=== PATIENT | male | born 1960 | race Caucasian/White ===

== ENCOUNTER 2023-07-18 08:36 | Outpatient (OUT) | payer OTHER, SELFPAY ==
--- NOTE | 2023-07-18 | XR_ITS ---
[address] [address] Patient Name: PAMELA JIN MRN: [id number] date: 1960 Sex: M Assigned Patient Location: LAB Current Patient Location: LAB Accession/Order Number: [id number] Exam Date: 07/18/2023 09:05 Report Date: 07/18/2023 09:32 At the request of: NON-STAFF PHYSICIAN Procedure: XR abdomen 1V Exam: Radiographs: XR abdomen 1V Reason for exam: n20.0, kidney stone Comparison: Plain films dated 06/24/2022 XR/XR abdomen 1V IMPRESSION: No radiographically evident renal, ureteral or bladder calculi. No gas-filled dilated loops of small bowel or colon. No fecal impaction. Remainder unremarkable. Electronically authenticated by: JOSE BUCKLEY Date: 07/18/2023 09:32
[2023-07-18 09:56] LABS: Prostate Specific Antigen Dx 0.54 ng/mL (<=4.00)
== END 2023-07-18 08:37 | disposition home or self-care (01) ==
LOC: LAB 08:41
PROVIDERS: PCP Family Medicine
DX: N13.2 Hydronephrosis with renal and ureteral calculous obstruction (principal); N52.9 Male erectile dysfunction, unspecified; N40.1 Benign prostatic hyperplasia with lower urinary tract symptoms
CPT/HCPCS: 36415; 74018; 84153

== ENCOUNTER 2024-07-24 09:22 | Outpatient (OUT) | payer MEDICARE, OTHER, SELFPAY ==
--- NOTE | 2024-07-24 09:46 | XR_ITS ---
The [address] [address] Patient Name: PAMELA JIN MRN: [id number] date: 1960 Sex: M Assigned Patient Location: LAB Current Patient Location: LAB Accession/Order Number: [id number] Exam Date: 07/24/2024 09:49 Report Date: 07/25/2024 05:47 At the request of: FLY MCGUIRE Procedure: XR abdomen 1V EXAMINATION: XR abdomen 1V HISTORY: Ureteral Stone With Hydronephrosis COMPARISON: XR abdomen 07/18/2023, ultrasound renal bilateral 07/24/2024 FINDINGS: KIDNEY/URETER - RIGHT: No visible renal or ureteral calcifications. KIDNEY/URETER - LEFT: No visible renal or ureteral calcifications. PELVIS: No visible ureteral calcifications. Stable pelvic calcifications favor phleboliths. BOWEL: No abnormal dilation or deviation. BONES: No acute abnormality. OTHER: Negative. No abnormal gaseous collections. XR/XR abdomen 1V IMPRESSION: 1. No urinary tract calculi. Electronically authenticated by: MICHAEL CARMEN Date: 07/25/2024 05:47
--- NOTE | 2024-07-24 09:46 | US_ITS ---
[address] [address] Patient Name: PAMELA JIN MRN: [id number] date: 1960 Sex: M Assigned Patient Location: LAB Current Patient Location: Accession/Order Number: [id number] Exam Date: 07/24/2024 09:50 Report Date: 07/25/2024 05:46 At the request of: FLY MCGUIRE Procedure: US renal BI EXAMINATION: US renal BI HISTORY: Ureteral Stone With Hydronephrosis COMPARISON: CT abdomen pelvis 03/03/2022 TECHNIQUE: Ultrasound examination was performed of the kidneys and urinary bladder. FINDINGS: RIGHT KIDNEY: No evidence of pelvocaliectasis, mass, or calculi. Normal parenchymal echogenicity. Color Doppler demonstrates blood flow within the kidney. Kidney: 11.5 x 5.8 x 5.2 cm LEFT KIDNEY: No evidence of pelvocaliectasis, mass, or calculi. Normal parenchymal echogenicity. Color Doppler demonstrates blood flow within the kidney. Kidney: 12.5 x 5.2 x 6.1 cm BLADDER: No visible wall thickening, mass, or calculi. US/US renal BI IMPRESSION: 1. Normal ultrasound appearance of the kidneys and urinary bladder. Electronically authenticated by: MICHAEL CARMEN Date: 07/25/2024 05:46
[2024-07-24 11:20] LABS: Prostate Specific Antigen Dx 0.71 ng/mL (<=4.00)
== END 2024-07-24 09:23 | disposition home or self-care (01) ==
LOC: LAB 09:29
PROVIDERS: PCP Family Medicine; Visit Provider Physician Assistant
DX: N13.2 Hydronephrosis with renal and ureteral calculous obstruction (principal); N40.1 Benign prostatic hyperplasia with lower urinary tract symptoms
CPT/HCPCS: 36415; 74018; 76775; 84153

== ENCOUNTER 2025-08-22 14:48 | Outpatient (OUT) | payer MEDICARE, OTHER, SELFPAY ==
--- OUTSIDE RECORDS SUMMARY | 2025-08-08 13:30 | XMS_ITS | Encounter Summary ---
Author Organization [facility] Address [address] [place] [address] Care Team Providers Care Qa Test Lead Name Role Phone Alex Lopes MD Primary Care Provider [phone] Alex Lopes MD Unavailable [phone] Jamel Nagy MD Unavailable [phone] Encounter Details DateTypeDepartmentCare Team (Latest Contact Info)Ucdmigwjtlb74/09/2025 1:30 PM EDTAncillary Procedure [facility] [address] [place] [address] Polyarthritis; Elevated erythrocyte sedimentation rate; Simple chronic bronchitis (HCC); Restrictive airway disease Social History Tobacco UseTypesPacks/DayYears UsedDateSmoking Tobacco: Some DaysCigarettes Smokeless Tobacco: NeverAlcohol UseStandard Drinks/WeekCommentsNot Currently0 (1 standard drink = 0.6 oz pure alcohol)B1300 Health LiteracyAnswerDate RecordedHow often do you need to have someone help you when you read instructions, pamphlets, or other written material from your doctor or pharmacy?Never 12/19/2024Humiliation, Afraid, Rape, and Kick questionnaireAnswerDate Recorded Within the last year, have you been afraid of your partner or ex-partner?Patient rdthezsb24/05/2023Within the last year, have you been humiliated or emotionally abused in other ways by your partner or ex-partner?Patient ogriwddb80/05/2023 Within the last year, have you been kicked, hit, slapped, or otherwise physically hurt by your partner or ex-partner?No07/05/2023Within the last year, have you been raped or forced to have any kind of sexual activity by your part ner or ex-partner?No07/05/2023Social Connection and Isolation PanelAnswerDate RecordedIn a typical week, how many times do you talk on the phone with family, friends, or neighbors?More than three times a week12/19/2024How often do you get together with friends or relatives?More than three times a week12/19/2024How often do you attend yazidi or orthodox services?Patient qgzowpjj76/19/2025Do you belong to any clubs or organizations such as yazidi groups, unions, [email or web address] or athletic groups, or school groups?No12/19/2024How often do you attend meetings of the clubs or organizations you belong to?Never12/19/2024re you , , , , never , or living with a partner?Srkygvll23/19/2025UDIT-CAnswerDate RecordedQ1: How often do you have a drink containing alcohol?Monthly or less12/19/2024Q2: How many drinks containing alcohol do you have on a typical day when you are drinking?3 or Q3: How often do you have six or more drinks on one occasion?Never12/19/2024Overall Financial Resource Strain (CARDIA)AnswerDate RecordedHow hard is it for you to pay for the very basics like food, housing, medical care, and heating?Not hard at all12/19/2024PHQ-2AnswerDate RecordedPatient Health Questionnaire-2 Score0 06/20/2025[facility] [place] [facility] Occup[facility] - Occupational Stress QuestionnaireAnswerDate RecordedDo you feel stress - tense, restless, nervous, or anxious, or unable to sleep at night because yourmind is troubled all the time - these days?Not at all12/19/2024Exercise Vital SignAnswerDate RecordedOn average, how many days per week do you engage in moderate to strenuous exercise (like a brisk walk)?0 days12/19/2024On average, how many minutes do you engage in exercise at this level?20 min12/19/2024Hunger Vital SignAnswerDate Recorded Within the past 12 months, you worried that your food would run out before you got the money to buymore.Never true12/19/2024Within the past 12 months, the food you bought just didn't last and you didn't have money to get more.Sometimes true 12/19/2024PRAPARE - TransportationAnswerDate RecordedIn the past 12 months, has lack of transportation kept you from medical appointments or from getting medications?No12/19/2024In the past 12 months, has lack of transportation kept you from meetings, work, or from getting things needed for daily living?No 12/19/2024Housing Stability Vital SignAnswerDate RecordedIn the last 12 months, was there a time when you were not able to pay the mortgage or rent on time?No 07/05/2023In the last 12 months, how many places have you lived?In the last 12 months, was there a time when you did not have a steady place to sleep or slept in [facility] (including now)?No07/05/2023Housing Stability Vital SignAnswerDate RecordedIn the last 12 months, was there a time when you were not able to pay the mortgage or rent on time?No12/19/2024Number of Times Moved in the Last YearNot on file12/19/2024t any time in the past 12 months, were you homeless or living in a senior care (including now)?No12/19/2024EducationAnswerDate RecordedWhat is the highest level of school you have completed or the highest degree you have received?Some college, no yxlqhv7107/05/2023Sex and Gender InformationValueDate RecordedSex Assigned at BirthNot on fileLegal SexMale 01/12/2023 7:23 PM EDTGender IdentityNot on fileSexual OrientationNot on file OccupationIndustryJob Start DateJob End DateWork full timeNot on fileNot on file Not on filedocumented as of this encounter Plan of Treatment DateTypeDepartmentCare Team (Latest Contact Info)Yobnjmqxreq62/20/2025 9:00 AM ESTOffice Visit [facility] [address] [address] Alex Lopes MD [address] [address] documented as of this encounter Procedures Procedure NamePriorityDate/TimeAssociated DiagnosisCommentsXR CHEST 2 VIEWS Fbcoemd2708/08/2025 2:37 PM EDT Polyarthritis Elevated erythrocyte sedimentation rate Simple chronic bronchitis (HCC) Restrictive airway disease documented in this encounter Results * XR chest 2 views (08/08/2025 2:37 PM EDT)Anatomical RegionLateralityModality ChestRadiographic ImagingSpecimen (Source)Anatomical Location / Laterality Collection Method / VolumeCollection TimeReceived Time08/08/2025 4:54 PM EDT Impressions 08/08/2025 4:54 PM EDT No acute cardiopulmonary disease. ELECTRONICALLY SIGNED BY: Cornelius Dill MD Narrative 08/08/2025 4:54 PM EDT Chest 2 views. HISTORY: Arthralgia. Elevated ESR. Chronic cough. FINDINGS: Osseous structures intact. Cardiopericardial silhouette normal. Pulmonary vasculature normal. Lungsclear. Procedure Note Cornelius Dill MD - 08/08/2025 Chest 2 views. HISTORY: Arthralgia. Elevated ESR. Chronic cough. FINDINGS: Osseous structures intact. Cardiopericardial silhouette normal. Pulmonary vasculature normal. Lungs clear. IMPRESSION: No acute cardiopulmonary disease. ELECTRONICALLY SIGNED BY: Cornelius Dill MD Authorizing ProviderResult TypeResult StatusEdahsan Lopes MDIMG XR PROCEDURES Final Result documented in this encounter Visit Diagnoses Diagnosis Polyarthritis Unspecified polyarthropathy or polyarthritis, site unspecified Elevated erythrocyte sedimentation rate Elevated sedimentation rate Simple chronic bronchitis (HCC) Simple chronic bronchitis Restrictive airway disease documented in this encounter Additional Health Concerns AssessmentNoted TimePHQ-9 Depression Total Score: 7001/21/2025 9:00 AM EDT documented as of this encounter Care Teams Team MemberRelationshipSpecialtyStart DateEnd Date Alex Lopes MD [address] [place] [address] [place] [address] PCP - GeneralFamily Medicine03/08/23 Alex Lopes MD [address] [address] PCP - [place]10/31/24 Jamel Nagy MD [address] [place], [place] [id number] Referring PhysicianUrology01/21/25documented as of this encounter
--- OUTSIDE RECORDS SUMMARY | 2025-08-21 12:00 | XMS_ITS | Encounter Summary ---
Author Organization [facility] [employer] [facility] tem Address [id number] [address] [place] [address] Care Team Providers Care Labor Trainer Name Role Phone Unavailable Primary Care Provider Unavailabl e Encounter Details DateTypeDepartmentCare Team (Latest Contact Info)Qpyzanhfugk68/22/2025 12:00 PM EDTOffice Visit [facility], [facility] Department of [facility] [address] [phone] Layo Day MD [address] [address] Inflammatory polyarthritis ([facility]) (Primary Dx) Social History Tobacco UseTypesPacks/DayYears UsedDateSmoking Tobacco: Never AssessedChildcare AnswerDate UlqqrrqxKarewsayqUgnsbru67/12/2019EmploymentAnswerDate Recorded QoidekdxmoYsqvjxu32/12/2019Sex and Gender InformationValueDate RecordedSex Assigned at BirthNot on fileLegal JtuLkis2806/05/2015 11:30 AM EDTGender Identity Not on fileSexual OrientationNot on filedocumented as of this encounter Last Filed Vital Signs Vital SignReadingTime TakenCommentsBlood Bkounbch056/8410 11:29 AM EDT Pulse--Temperature--Respiratory Xjre7949 11:29 AM EDTOxygen Saturation-- Inhaled Oxygen Concentration--Ipxqbk60 kg (194 lb)08/21/2025 11:29 AM EDTHeight- -Body Mass Index--documented in this encounter Progress Notes * Layo Day MD - 08/21/2025 12:00 PM EDT Images from the original note were not included. [address] [facility] [id number] Date of Service: 08/21/2025 Subjective: Ant Neal III is a 65 y.o. male who presents today for evaluation joints pain. Patient is seen at the request of No primary care provider on file.. This is the 1st clinic visit for this 65-year-old male patient who has been referred to us with joints pain Patient symptoms started in September 2024 ,neck,shoulders,,arms,hips,knees,,stiffness in the morning ,was given Prednisone early August 04 tab with trapper , he feels felt much better when he was on h igh-dose however pain came back after stopping the steroid. No headaches,jaw pain,or visual loss,fever Lab tests done May 2025 ESR 82, uric acid normal, rheumatoid factor 11. Patient has been given the following medications including, Past surgical hernia operations Past medical HTN ,DM,high lipids was on Salatin caused muscle pain now not taking them for the past3 weeks Smoking history 21 years 1/2 pack daily The following portions of the patient's history were reviewed and updated as appropriate: allergies, current medications, past family history, past medical history, past social history, past surgicalhistory and problem list. Review of Systems: Review of Systems Constitutional: Negative for fatigue, fever and unexpected weight change. HENT: Negative. Eyes: Negative. Respiratory: Negative. Cardiovascular: Negative. Gastrointestinal: Negative. Genitourinary: Negative. Musculoskeletal: Positive for arthralgias and neck pain. Skin: Negative for rash. Allergic/Immunologic: Negative. Neurological: Negative for seizures, syncope, weakness and headaches. Hematological: Does not bruise/bleed easily. Psychiatric/Behavioral: Negative. Negative for dysphoric mood. Current Outpatient Medications Medication Sig Dispense Refill fenofibrate (TRICOR) 145 mg tablet Take 1 tablet (145 mg total) by mouth in the morning. JARDIANCE 25 mg tablet tablet Take 1 tablet (25 mg total) by mouth in the morning. losartan (COZAAR) 100 mg tablet Take 1 tablet (100 mg total) by mouth in the morning. magnesium oxide (MAGOX) 400 mg tablet Take 250 mg by mouth in the morning. metFORMIN (GLUCOPHAGE) 1000 mg tablet Take 1 tablet (1,000 mg total) by mouth daily with breakfast. metoprolol tartrate (LOPRESSOR) 100 mg tablet Take 25 mg by mouth in the morning and 25 mg before bedtime. predniSONE (DELTASONE) 10 mg tablet Take 1 tablet (10 mg total) by mouth in the morning. 4 tab daily 1 week,then 3 tab daily 1 week,then 2 tab daily 1 week,then 1.5 tab daily. 70 tablet 1 No current facility-administered medications for this visit. Physical Exam: Physical Exam Vitals and nursing note reviewed. Constitutional: General: He is not in acute distress. Appearance: He is well-developed. He is not diaphoretic. HENT: Head: Normocephalic and atraumatic. Right Ear: External ear normal. Left Ear: External ear normal. Nose: Nose normal. Eyes: Conjunctiva/sclera: Conjunctivae normal. Pupils: Pupils are equal, round, and reactive to light. Neck: Thyroid: No thyromegaly. Cardiovascular: Rate and Rhythm: Normal rate and regular rhythm. Heart sounds: Normal heart sounds. No murmur heard. No friction rub. Pulmonary: Effort: Pulmonary effort is normal. No respiratory distress. Breath sounds: No stridor. No wheezing or rales. Abdominal: General: There is no distension. Palpations: Abdomen is soft. There is no mass. Tenderness: There is no guarding. Musculoskeletal: General: No tenderness or deformity. Normal range of motion. Cervical back: Normal range of motion and neck supple. Comments: Puffiness with edema both hands puffy MCPs. Tender wrists. Shoulders painful range motion. Knees crepitus both sides Skin: General: Skin is warm and dry. Findings: No erythema or rash. Neurological: Mental Status: He is alert and oriented to person, place, and time. Cranial Nerves: No cranial nerve deficit. Coordination: Coordination normal. Psychiatric: Behavior: Behavior normal. GRECO-28 (If Applicable) There is currently no information documented on the homunculus. Go to the Rheumatology activity andcomplete the homunculus joint exam. GRECO-28 (CRP): -- GRECO-28 (ESR): -- Tender (GRECO-28): -- Swollen (GRECO-28): -- BP 132/84 Resp 18 Wt 88 kg (194 lb) : reviewed Labs and Imaging: reviewed and discussed with the patient during the visit.I No results found for: WBC , RBC , HGB , HCT , MCV , ESR , CRP , RF , C3 , C4 , GFR , CA , AST , PROT Imaging: Assessment and Plan: Ant Neal III is a 65 y.o. male patient with: 1. Inflammatory polyarthritis ([facility]) - Erythrocyte Sedimentation Rate (ESR); Future - C-reactive protein; Future - Comprehensive metabolic panel; Future - CBC auto differential; Future - CCP Ab; Future - X-ray osseous survey limited; Future - X-ray knees bilateral standing ap; Future - X-ray chest 2 views; Future - predniSONE (DELTASONE) 10 mg tablet; Take 1 tablet (10 mg total) by mouth in the morning. 4 tab daily 1 week,then 3 tab daily 1 week,then 2 tab daily 1 week,then 1.5 tab daily. Dispense: 70 tablet;Refill: 1 At this point I am seeing this patient with inflammatory polyarthritis probably seronegative rheumatoid versus polymyalgia rheumatica. X-rays. ESR CRP, CCP Will put patient back on 40 mg prednisone and taper slowly over 1 month RTC 1 month Total ovwm-yk-clqg time was 35 minutes with more than 50% of the visit spent counseling and discussing diagnostic or treatment recommendations, prognosis, risks and benefits of management options, instructions, compliance or risk- factor reduction. This note was created with the assistance of a speech recognition program. While intending to generate a timely document that accurately reflects the content of the visit, no guarantee can be provided that every grammatical or spelling mistake has been or will be identified or corrected. Thank you for your understanding. [facility] Dr. Layo Day MD [address] [facility], [address] [place] [address] Office: [phone] documented in this encounter Miscellaneous Notes * Addendum Note - Layo Day MD - 08/21/2025 12:00 PM EDTAddended by: LAYO DAY on: 08/21/2025 12:38 PM Modules accepted: Orders documented in this encounter Plan of Treatment DateTypeDepartmentCare Team (Latest Contact Info)Sikdifvxhjm89/24/2025 9:45 AM ESTOffice Visit [facility], [facility] Department of [facility] [address] [phone] Layo Day MD [address] [address] NameTypePriorityAssociated DiagnosesOrder ScheduleErythrocyte Sedimentation Rate (ESR)LabRoutine Inflammatory polyarthritis (CMS-HCC) Expected: 08/21/2025 (Approximate), Expires: 08/21/2026-reactive proteinLab Routine Inflammatory polyarthritis (CMS-HCC) Expected: 08/21/2025 (Approximate), Expires: 08/21/2026omprehensive metabolic panelLabRoutine Inflammatory polyarthritis (CMS-HCC) Expected: 08/21/2025 (Approximate), Expires: 08/21/2026BC auto differentialLab Routine Inflammatory polyarthritis (CMS-HCC) Expected: 08/21/2025 (Approximate), Expires: 08/21/2026CP AbLabRoutine Inflammatory polyarthritis (CMS-HCC) 1 Occurrences starting 08/21/2025 until 08/21/2026documented as of this encounter Results * X-ray chest 2 views (08/21/2025 12:37 PM EDT)Anatomical RegionLaterality ModalityBody, ChestN/AComputed RadiographySpecimen (Source)Anatomical Location / LateralityCollection Method / VolumeCollection TimeReceived Time08/21/2025 4:21 PM EDT Narrative 08/21/2025 4:22 PM EDT XR CHEST 2 VWS INDICATION: Inflammatory polyarthritis (CMS-HCC). Interstitial lung disease. FINDINGS: The cardiac silhouette is normal in size. ??The trachea is midline. No focal pulmonary consolidation. ??No pleural effusion. ??No pneumothorax. IMPRESSION: No acute cardiopulmonary abnormality. Finalized by Santi Love MD on 08/21/2025 4:22 PM Procedure Note Santi Love MD - 08/21/2025 XR CHEST 2 VWS INDICATION: Inflammatory polyarthritis (CMS-HCC). Interstitial lungdisease. FINDINGS: The cardiac silhouette is normal in size. The trachea is midline. No focal pulmonary consolidation. No pleural effusion. Nopneumothorax. IMPRESSION: No acute cardiopulmonary abnormality. Finalized by Santi Love MD on 08/21/2025 4:22 PM Authorizing ProviderResult TypeResult Brianna JOHNSON DIAGNOSTIC IMAGING ORDERABLESFinal Result * X-ray knees bilateral standing ap (08/21/2025 12:37 PM EDT)Anatomical Region LateralityModalityLower Extremities, MSK, KneeBilateralComputed Radiography Specimen (Source)Anatomical Location / LateralityCollection Method / Volume Collection TimeReceived Time08/22/2025 4:02 AM EDT Narrative 08/22/2025 4:03 AM EDT STANDING AP VIEW OF THE KNEES COMPARISON: ??None. HISTORY: Inflammatory polyarthritis (CMS-HCC). IMPRESSION: * ??Severe medial compartment joint space narrowing of the left knee with osteophytes. Overlying foci of ossification medially are most likely loose bodies. * ??Mild right medial compartment joint space narrowing. * ??Spurring of the bilateral medial and lateral compartments. Finalized by Naeem Nguyen MD on 08/22/2025 4:03 AM Procedure Note Naeem Nguyen MD - 08/22/2025 STANDING AP VIEW OF THE KNEES COMPARISON: None. HISTORY: Inflammatory polyarthritis (CMS-HCC). IMPRESSION: * Severe medial compartment joint space narrowing of the left knee with osteophytes. Overlying foci of ossification medially are most likely loose bodies. * Mild right medial compartment joint space narrowing. * Spurring of the bilateral medial and lateral compartments. Finalized by Naeem Nguyen MD on 08/22/2025 4:03 AM Authorizing ProviderResult TypeResult Brianna Rahmana MDIMG DIAGNOSTIC IMAGING ORDERABLESFinal Result * X-ray osseous survey limited (08/21/2025 12:36 PM EDT)Anatomical Region LateralityModalityMSKN/AComputed RadiographySpecimen (Source)Anatomical Location / LateralityCollection Method / VolumeCollection TimeReceived Time 08/22/2025 3:59 AM EDT Narrative 08/22/2025 4:02 AM EDT OSSEOUS SURVEY LIMITED HISTORY: Inflammatory polyarthritis (CMS-HCC). PA and oblique views of the bilateral hands and wrists obtained. FINDINGS: Right: Severe second and third metacarpophalangeal joint space narrowing with volar osteophyte of the metacarpal heads. Mild narrowing of the first metatarsophalangeal joint, and moderate degenerative change of the first carpometacarpal joint. Diffuse degenerative change of the interphalangeal joints. No discrete bone erosion or soft tissue calcification. Remote ulnar styloid fracture without bony union. No fracture. Left: Severe second and third metacarpophalangeal joint space narrowing with volar metacarpal head osteophytes. Severe first carpal metacarpal osteoarthrosis, as well as severe degenerative change at the scaphoid trapezium chest trapezoid joint. Diffuse degenerative change of the interphalangeal joints, and mild first metatarsophalangeal osteoarthrosis. No discrete bone erosion or soft tissue calcification. IMPRESSION: * ??Bilateral severe second metacarpophalangeal joint space narrowing with volar metacarpal head osteophytes. These findings can be seen with no fracture. 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 No discrete bone erosion. * ??Degenerative changes as described. Finalized by Naeem Nguyen MD on 08/22/2025 4:02 AM Procedure Note Naeem Nguyen MD - 08/22/2025 OSSEOUS SURVEY LIMITED HISTORY: Inflammatory polyarthritis (CMS-HCC). PA and oblique views of the bilateral hands and wrists obtained. FINDINGS: Right: Severe second and third metacarpophalangeal joint space narrowing withvolar osteophyte of the metacarpal heads. Mild narrowing of the first metatarsophalangeal joint, and moderate degenerative change of the first carpometacarpal joint. Diffuse degenerative change of the interphalangealjoints. No discrete bone erosion or soft tissue calcification. Remote ulnar styloidfracture without bony union. No fracture. Left: Severe second and third metacarpophalangeal joint space narrowing withvolar metacarpal head osteophytes. Severe first carpal metacarpalosteoarthrosis, as well as severe degenerative change at the scaphoidtrapezium chest trapezoid joint. Diffuse degenerative change of theinterphalangeal joints, and mild first metatarsophalangeal osteoarthrosis. No discrete boneerosion or soft tissue calcification. IMPRESSION: * Bilateral severe second metacarpophalangeal joint space narrowing withvolar metacarpal head osteophytes. These findings can be seen with nofracture. CPPD arthropathy, although there is no evidence forchondrocalcinosis. No discrete bone erosion. * Degenerative changes as described. Finalized by Naeem Nguyen MD on 08/22/2025 4:02 AM Authorizing ProviderResult TypeResult StatusKhmadhavi JOHNSON DIAGNOSTIC IMAGING ORDERABLESFinal Result documented in this encounter Visit Diagnoses Diagnosis Inflammatory polyarthritis (CMS-HCC)- Primary Unspecified inflammatory polyarthropathy Inflammatory polyarthritis (CMS-HCC) Unspecified inflammatory polyarthropathy Inflammatory polyarthritis (CMS-HCC) Unspecified inflammatory polyarthropathy Inflammatory polyarthritis (CMS-HCC) Unspecified inflammatory polyarthropathy documented in this encounter
--- OUTSIDE RECORDS SUMMARY | 2025-08-21 12:23 | XMS_ITS | Encounter Summary ---
Author Organization [facility] tem Address [id number] [address] [place] [address] Care Team Providers Care Bike Assembler Name Role Phone Unavailable Primary Care Provider Unavailabl e Encounter Details DateTypeDepartmentCare Team (Latest Contact Info)Ampwdlpzyhm23/22/2025 12:23 PM EDT - 08/21/2025 11:59 PM EDTHospital Encounter [facility] [address] [facility] [address] [place] [phone] Inflammatory polyarthritis ([facility]-H[facility]) Discharge Disposition: Home Social History Tobacco UseTypesPacks/DayYears UsedDateSmoking Tobacco: Never AssessedChildcare AnswerDate VwxfbsfjSpusjdohfFhacbqd98/12/2019EmploymentAnswerDate Recorded GaiultmmbxYedhfdg32/12/2019Sex and Gender InformationValueDate RecordedSex Assigned at BirthNot on fileLegal DkbCjxr9206/05/2015 11:30 AM EDTGender Identity Not on fileSexual OrientationNot on filedocumented as of this encounter Medications at Time of Discharge MedicationSigDispense QuantityRefillsLast FilledStart DateEnd Date fenofibrate (TRICOR) 145 mg tablet Take 1 tablet (145 mg total) by mouth in the morning.06/20/2025 JARDIANCE 25 mg tablet tablet Take 1 tablet (25 mg total) by mouth in the morning.06/20/2025 losartan (COZAAR) 100 mg tablet Take 1 tablet (100 mg total) by mouth in the morning.06/20/2025 magnesium oxide (MAGOX) 400 mg tablet Take 250 mg by mouth in the morning. metFORMIN (GLUCOPHAGE) 1000 mg tablet Take 1 tablet (1,000 mg total) by mouth daily with breakfast.06/20/2025 metoprolol tartrate (LOPRESSOR) 100 mg tablet Take 25 mg by mouth in the morning and 25 mg before bedtime.06/04/2025 predniSONE (DELTASONE) 10 mg tablet Indications:Inflammatory polyarthritis (CMS-HCC)4 tab daily 1 week,then 3 tab daily 1 week,then 2 tab daily 1 week,then 1.5 tab daily 70 tablet documented as of this encounter Plan of Treatment DateTypeDepartmentCare Team (Latest Contact Info)Nnfqubvcgbg23/24/2025 9:45 AM ESTOffice Visit [facility], [facility] Department of [facility] [address] [phone] Fela Camejo MD [address] [address] documented as of this encounter Procedures Procedure NamePriorityDate/TimeAssociated DiagnosisCommentsXR KNEES BILAT STANDING VENrcmhtj05/22/2025 12:37 PM EDT Inflammatory polyarthritis (CMS-HCC) documented in this encounter Results * X-ray knees bilateral standing ap (08/21/2025 [...] on 08/22/2025 4:03 AM Authorizing ProviderResult TypeResult StatusKhadeargentina JOHNSON DIAGNOSTIC IMAGING ORDERABLESFinal Result documented in this encounter Visit Diagnoses Diagnosis Inflammatory polyarthritis (CMS-HCC) Unspecified inflammatory polyarthropathy documented in this encounter
--- OUTSIDE RECORDS SUMMARY | 2025-08-21 12:23 | XMS_ITS | Encounter Summary ---
Author Organization [facility] tem Address [facility] [id number] [address] [place] [address] Care Team Providers Care Youth Care Professional Name Role Phone Unavailable Primary Care Provider Unavailabl e Encounter Details DateTypeDepartmentCare Team (Latest Contact Info)Vofrrogkjqy75/22/2025 12:23 PM EDT - 08/21/2025 11:59 PM EDTHospital Encounter [facility] - Radiology Imaging [address] [facility] [address] [place] [phone] Inflammatory polyarthritis ([facility]-H[facility]) Discharge Disposition: Home Social History Tobacco UseTypesPacks/DayYears UsedDateSmoking Tobacco: Never AssessedChildcare AnswerDate JfwuhdddFtgsctjvkVutnvyc15/12/2019EmploymentAnswerDate Recorded CvkquisqlbRdkkjec07/12/2019Sex and Gender InformationValueDate RecordedSex Assigned at BirthNot on fileLegal UusXnet3206/05/2015 11:30 AM EDTGender Identity Not on fileSexual [...] Plan of Treatment DateTypeDepartmentCare Team (Latest Contact Info)Dfztmcgwekn79/24/2025 9:45 AM ESTOffice Visit [facility], [facility] Department of [facility] [address] [phone] Fela Camejo MD [address] [address] documented as of this encounter Procedures Procedure NamePriorityDate/TimeAssociated DiagnosisCommentsXR OSSEOUS SURVEY UZMZZFVNxdxpoi52/22/2025 12:36 PM EDT Inflammatory polyarthritis (CMS-HCC) documented in this encounter Results * X-ray osseous survey limited (08/21/2025 12:36 [...] Degenerative changes as described. Finalized by Naeem Nugyen MD on 08/22/2025 4:02 AM Authorizing ProviderResult TypeResult StatusKhader Camejo MDIMJonatan DIAGNOSTIC IMAGING ORDERABLESFinal Result documented in this encounter Visit Diagnoses Diagnosis Inflammatory polyarthritis ([facility]-H[facility]) Unspecified inflammatory polyarthropathy documented in this encounter
--- OUTSIDE RECORDS SUMMARY | 2025-08-21 12:23 | XMS_ITS | Encounter Summary ---
Author Organization [facility] tem Address [facility] [id number] [address] [place] [address] Care Team Providers Care Inspector Optical Instrument Name Role Phone Unavailable Primary Care Provider Unavailabl e Encounter Details DateTypeDepartmentCare Team (Latest Contact Info)Duyfrchxemx34/22/2025 12:23 PM EDT - 08/21/2025 11:59 PM EDTHospital Encounter [facility] - Radiology Imaging [address] [facility] [address] [place] [phone] Inflammatory polyarthritis ([facility]-H[facility]) Discharge Disposition: Home Social History Tobacco UseTypesPacks/DayYears UsedDateSmoking Tobacco: Never AssessedChildcare AnswerDate QhiutbqqRetrygabuFbvlucf82/12/2019EmploymentAnswerDate Recorded YzdvqkwvosZxvzwnd02/12/2019Sex and Gender InformationValueDate RecordedSex Assigned at BirthNot on fileLegal CymVrlh1606/05/2015 11:30 AM EDTGender Identity Not on fileSexual [...] Plan of Treatment DateTypeDepartmentCare Team (Latest Contact Info)Yxmhxvcrldp14/24/2025 9:45 AM ESTOffice Visit [facility], [facility] Department of [facility] [address] [phone] Fela Camejo MD [address] [address] documented as of this encounter Procedures Procedure NamePriorityDate/TimeAssociated DiagnosisCommentsXR CHEST 2 VWSRoutine 08/21/2025 12:37 PM EDT Inflammatory polyarthritis (CMS-HCC) documented in this encounter Results * X-ray chest 2 [...] on 08/21/2025 4:22 PM Authorizing ProviderResult TypeResult StatusKhader Bashir JOHNSON DIAGNOSTIC IMAGING ORDERABLESFinal Result documented in this encounter Visit Diagnoses Diagnosis Inflammatory polyarthritis ([facility]-HCC) Unspecified inflammatory polyarthropathy documented in this encounter
--- OUTSIDE RECORDS SUMMARY | 2025-08-22 14:58 | XMS_ITS | Encounter Summary ---
Author Organization [facility] Address [address] [place] [address] Care Team Providers Care Foot Gatherer Name Role Phone Alex Lopes MD Primary Care Provider [phone] Alex Lopes MD Unavailable [phone] Jamel Nagy MD Unavailable [phone] Reason for Visit * ReasonOnset EqugYbdovobcEekehit30/13/2025 Encounter Details DateTypeDepartmentCare Team (Latest Contact Info)Dhreovskppv68/13/2025Results Follow-Up [facility] [place] [address] Family Medicine [address] [facility] [address] [place] [id number] Alex Lopes MD 112 [facility] [address] [place] [address] CBC and differential, Comprehensive metabolic panel, B-type natriuretic peptide, Additional followed-up results: 9 Social History Tobacco UseTypesPacks/DayYears UsedDateSmoking Tobacco: Some [...] been afraid of your partner or ex-partner?Patient douwtnvb29/05/2023Within the last year, have you been humiliated or emotionally abused in other ways by your partner or ex-partner?Patient aigkbxev02/05/2023 Within the last year, have you been [...] times a week12/19/2024How often do you attend christian or orthodox services?Patient /19/2025Do you belong to any clubs or organizations such as christian groups, unions, fraternal or athletic groups, or school groups?No12/19/2024How often do you attend meetings of the clubs or organizations you belong to?Never12/19/2024re you , , , , never , or living with a partner?Rrujgzrq36/19/2025UDIT-CAnswerDate RecordedQ1: How often do you have a [...] hard at all12/19/2024PHQ-2AnswerDate RecordedPatient Health Questionnaire-2 Score0 06/20/2025[facility] - Occupational Stress QuestionnaireAnswerDate [...] steady place to sleep or slept in [place] (including now)?No07/05/2023Housing Stability Vital SignAnswerDate RecordedIn the last 12 months, was there a time when you were not able to pay the mortgage or rent on time?No12/19/2024Number of Times Moved in the Last YearNot on file12/19/2024t any time in the past 12 months, were you homeless or living in a care home (including now)?No12/19/2024EducationAnswerDate RecordedWhat is the highest level of school you have completed or the highest degree you have received?Some college, no afojqa8407/05/2023Sex and Gender InformationValueDate RecordedSex Assigned at BirthNot on fileLegal SexMale 01/12/2023 7:23 PM EDTGender IdentityNot on fileSexual OrientationNot on file OccupationIndustryJob Start DateJob End DateWork full timeNot on fileNot on file Not on filedocumented as of this encounter Miscellaneous Notes * Telephone Encounter - Alex Lopes MD - 08/15/2025 10:46 AM EDT I reviewed with my medical pathologist who spoke with Ant. We were able to accelerate his visit withRheumatology to next . She noted that will Ant is a stoic individual he was in tears on the phone over the pain. At this point we really need to help him with his pain and his PDMP is as expected. We will go ahead and give him some tramadol to get him through to rheumatology. [facility] is requiring prior authorization which was started. * Telephone Encounter - Shelia Claros MA - 08/15/2025 10:39 AM EDT EH he got back with me today that they are going to see him next . Can you get him pain management meds to get him thru that? * Telephone Encounter - Shelia Claros MA - 08/13/2025 3:17 PM EDT left for pt that I refaxed that referral and to call nad let me know date so [facility] can help him accordingly * Telephone Encounter - Shelia Claros MA - 08/13/2025 2:44 PM EDT Copied from : Scott, January, this is Ant Neal. I did over there and they told me that they would call me back when they got the referral. And they had not got it yet, so I have not heard anything from them so. All right, but. refaxed * Telephone Encounter - Shelia Claros MA - 08/13/2025 2:26 PM EDT Attempted to call pt to see if he got something sooner with Dr Florian. No answer, VM left * Telephone Encounter - Alex Lopes MD - 08/12/2025 11:36 AM EDT January, Let us try and get his rheumatology referral set up. If it is short term over a couple of weeks we can give him some tramadol. Otherwise the only thing left that I know how to do for him would be to suppress the inflammation with long-term prednisone which is not without risks. I would prefer not to do that if we can avoid it. * Telephone Encounter - Shelia Claros MA - 08/12/2025 10:42 AM EDT Copied from : Scott. They said room at B, though, this is Ant Neal. If rheumatology said that the appointment would still be january 01 at 830 in the morning. So it is 6 months away. I got to do something else other than that, I mean. I think we are I guess if we can set up and send or in [place], we will have to try that. So, all right, thank you. Bye. I faxed the referral to [facility] office and gave him the number to call later. Can you look at the note about if you would be able to do something in the meantime. * Telephone Encounter - Shelia Claros MA - 08/12/2025 10:05 AM EDT I did talk to Ant. Dr bergman office called him so he is going to call them back and see if they can get him in any sooner because his hands keeping getting worse. He soul hardly even dress himself over the weekend. If he cannot he is going to try and call Florian office. He is asking if there is anything [facility] can due in the mean time to help with the inflammation and pain because nabeumtome is nothelping. * Telephone Encounter - Shelia Claros MA - 08/12/2025 10:05 AM EDT ----- Message from Alex Lopes MD sent at 08/12/2025 9:20 AM EDT ----- ----- Message ----- From: [facility] Results In Sent: 08/09/2025 5:13 PM EDT To: Alex Lopes MD * Telephone Encounter - Alex Lopes MD - 08/12/2025 9:16 AM EDT Notify Ant that I did review the chest x-ray and lab results. The chest x-ray is essentially normal there is no evidence of any masses or cancers or acute disease. His laboratories for the elevated ABA test all came back negative for the different rheumatologic diseases. His chemistry profile came back normal. His beta natriuretic peptide test came back negative. His blood count however demonstrates anemia and suspicious for iron deficiency. I reviewed his chart further and he did have a colonoscopy in October of [address] Alvarez. 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 He has a family history of colon cancer. The recommendation was for repeat colonoscopy in 5 years. This October would be the 5 year albin. I would recommend that he start iron bys-glycinate daily with a meal. I would recommend we go ahead and get him referred for colonoscopy and possible EGD. He can either go see the [facility] surgeons or he can stay with [facility] but Dr. Alvarez is no longer there. As I remember we offered him a referral to another draw frame runner, and he declined that because of the distance. documented in this encounter Plan of Treatment DateTypeDepartmentCare Team (Latest Contact Info)Hoqzfspznxm04/20/2025 9:00 AM ESTOffice Visit [facility] Family Medicine [address] [facility] [address] [place] [phone] Alex Lopes MD [address] [facility] [address] [place] [address] documented as of this encounter Visit Diagnoses Diagnosis Generalized arthritis- Primary documented in this encounter Additional Health Concerns AssessmentNoted TimePHQ-9 Depression Total Score: 7001/21/2025 9:00 AM EDT documented as of this encounter Care Teams Team MemberRelationshipSpecialtyStart DateEnd Date Alex Lopes MD [address] [place] [address] PCP - GeneralFamily Medicine03/08/23 Alex Lopes MD [address] [address] (Fax) PCP - Jaclyn PASCAL10/31/24 Jamel Nagy MD [address] [place] [address] Referring PhysicianUrology01/21/25documented as of this encounter
--- OUTSIDE RECORDS SUMMARY | 2025-08-22 14:58 | XMS_ITS | Clinical Summary ---
Author Organization [facility] Address [address] [place] [address] Care Team Providers Care Intelligence Operations Name Role Phone Alex Lopes MD Primary Care Provider [phone] Alex Lopes MD Unavailable [phone] Jamel Nagy MD Unavailable [phone] Allergies Active AllergyReactionsCriticalityNoted NgttZlogmhjfXrwwursxzudd17/30/2023 Other Reaction(s): Unknown GlipizideGI tmyzqfveoak58/27/2024Ketorolac Dakhqknaaqkk69/05/2023 Other Reaction(s): Hives Penicillin G006/29/2023 Other Reaction(s): Hives Qziibcosfzxj72/30/2023 Other Reaction(s): nausea and vomiting Medications MedicationSigDispense QuantityRefillsLast FilledStart DateEnd DateStatus magnesium 250 MG tablet Take 1 tablet by mouth 1 (one) time each day at the same timeActive omega-3 (Fish Oil) 1000 MG capsule Take 1,000 mg by mouth in the morning.Active sildenafil (Viagra) 100 MG tablet Take 100 mg by mouth if needed.07/22/2022ctive Blood Glucose Monitoring Suppl (ONE TOUCH ULTRA 2) w/Device kit Indications:Type 2 diabetes mellitus with other diabetic kidney complication (HCC)fsbs 1 kit ctive Lancets (OneTouch Delica Plus Uaxdax84E) misc Indications:Type 2 diabetes mellitus with other diabetic kidney complication (HCC)Fasting BS daily. May also check a second time daily for symptoms. 200 each ctive albuterol HFA 90 mcg/act inhaler Indications:Simple chronic bronchitis (HCC)Inhale 2 puffs every 4 (four) hours if needed for wheezing or shortness of breath 54 g tive aspirin 81 MG EC tablet Indications:Mixed hyperlipidemiaTake 1 tablet (81 mg) by mouth Daily06/20/2025 Active fenofibrate (Tricor) 145 MG tablet Indications:Mixed hyperlipidemiaTake 1 tablet (145 mg) by mouth Daily 90 tablet 5Active losartan (Cozaar) 100 MG tablet Indications:Essential hypertensionTake 1 tablet (100 mg) by mouth Daily 90 tablet 6Active metFORMIN (Glucophage) 1000 MG tablet Indications:Type 2 diabetes mellitus with other diabetic kidney complication (HCC)Take 1 tablet (1,000 mg) by mouth in the morning and 1 tablet (1,000 mg) in the evening. Take with meals. 180 tablet 6Active empagliflozin (Jardiance) 25 MG Indications:Type 2 diabetes mellitus with other diabetic kidney complication (HCC)Take 1 tablet (25 mg) by mouth Daily 90 tablet 6Active nabumetone (Relafen) 750 MG tablet Indications:Primary osteoarthritis involving multiple jointsTake 1 tablet (750 mg) by mouth in the morning and 1 tablet (750 mg) before bedtime. 180 tablet 5Active glucose blood (OneTouch Ultra) test strip Indications:Type 2 diabetes mellitus with other diabetic kidney complication (HCC)Fasting BS daily. May also check a second time daily for symptoms. Uses Drug Luxtech True Metrix monitor 200 each 5Active metoprolol tartrate (Lopressor) 25 MG tablet Indications:Essential hypertensionTake 0.5 tablets (12.5 mg) by mouth in the morning and 0.5 tablets (12.5 mg) before bedtime.6Active traMADol (Ultram) 50 MG tablet Indications:Generalized arthritisTake 1-2 tablets (50-100 mg) by mouth every 8 (eight) hours if needed for moderate pain for up to 7days 42 tablet /5Active naproxen (Naprosyn) 250 MG tablet Take 250 mg by mouth 2 (two) times a day as needed for mild pain08/08/2025 Discontinued(Med list cleanup) metoprolol tartrate (Lopressor) 25 MG tablet Indications:Essential hypertensionTake 1 tablet (25 mg) by mouth in the morning and 1 tablet (25 mg) before bedtime. 60 tablet 5007/29/2025Discontinued(Reorder) predniSONE (Deltasone) 10 MG tablet Indications:Primary osteoarthritis involving multiple jointsEvery 2 day tapering dose; 5,5,4,4,3,3,2,2,1,1,0.5,0.5 31 tablet Discontinued(Therapy completed) Active Problems ProblemNoted DateDiagnosed DatePrimary osteoarthritis involving multiple joints 07/02/2025hronic pain /21/2025Myalgia due to gpckwu6107/10/2024 Cigarette rrypjd3806/26/2024iabetic peripheral neuropathy associated with type 2 diabetes ejuotwjx24/27/2024iabetic cataract, associated with type 2 diabetes zglnenjy25/27/2024cquired pes planus of left foot06/29/2023dverse reaction to statin izoxuoncys90/30/2023iastolic mmgjrdyxpaf21/30/2023egeneration of intervertebral disc of lumbar region without discogenic back pain or lower extremity pain06/29/2023Equinus contracture of right ankle06/29/2023Erectile djqstqutbnl71/30/2023Essential qrrygvjdnoou70/30/2023Left ventricular iyzbsbkpfof56/30/2023Low testosterone level in male06/29/2023Microalbuminuria 06/29/2023Mixed gwqyqdumvnxfqc98/30/2023Non morbid obesity due to excess /30/1355Klcvhwrbphvdo71/30/2023eripheral venous insufficiency 06/29/2023es tpdeys7806/29/20238019Rasvjnjnpahw55/30/2023Restrictive airway disease 06/29/2023Right ventricular srqolofw89/30/2023Simple chronic bronchitis 06/29/2023Swelling of first metatarsophalangeal (MTP) joint06/29/2023Type 2 diabetes mellitus with other diabetic kidney bthxendnamih69/30/2023 Resolved Problems ProblemNoted DateDiagnosed DateResolved DateCurrent smoker on some days /History of chemical oamdazms62/Low HDL (under 40)/Overweight (BMI 25.0-29.9)/ Encounters DateTypeDepartmentCare VmpaVybnmkdqwom51/16/2025Telephone [facility] 100 [facility] 112 [facility] [address] [place] [address] Hyacinth January, Care Gvgciepnsuws95/13/2025Orders Only [facility] [address] [place] [address] Hyacinth January,08/12/2025[facility] [place] [address] Alex Lopes MD CBC and differential, Comprehensive metabolic panel, B-type natriuretic peptide, Additional followed-up results: 1:30 PM EDTAncillary Procedure [facility] [address] [facility] [address] [place] [id number] Polyarthritis; Elevated erythrocyte sedimentation rate; Simple chronic bronchitis (HCC); Restrictive airway eperdpf6508/08/20259875Vzcivq57/08/2025Telephone [facility] [address] [place] [address] Hyacinth January, Care Ichvhhoqrfgj80/29/2025Orders Only [facility] [address] [place] [address] Alex Lopes MD 07/29/2025[facility] [address] [place] [address] Hyacinth January, Care Qqqrqeoddhwu08/11/2025Telephone [facility] [address] [place] [address] Hyacinth January, Care Vpxbvyjdxkbm94/08/2025Telephone [facility] [address] 112 [facility] [address] [place] [address] Hyacinth January, Care Ewimuwcqxzqu99/29/2025Results Follow-Up [facility] [address] [place] [address] Alex Lopes MD Sedimentation rate, automated, Uric acid, ABA, Rheumatoid groucb1306/27/2025 Telephone [facility] [address] [place] [address] Alex Lopes MD Usfodeu6706/25/2025Telephone [facility] [place] [address] [place] [address] Catie Farmer RN Care Nlirdmfgliaw88/21/2025 9:00 AM EDTOffice Visit [facility] [address] [place] [address] Alex Lopes MD Essential hypertension (Primary Dx); Mixed hyperlipidemia ; Myalgia due to statin; Type 2 diabetes mellitus with hyperglycemia, without long-term current use of insulin (HCC); Type 2 diabetes mellitus with other diabetic kidney complication (HCC); Microalbuminuria; Diabetic cataract, associated with type 2 diabetes mellitus (HCC); Non morbid obesity due to excess calories; Chronic pain syndrome; Arthralgia, unspecified joint06/20/2025amboo flowsheet [facility] [address] 112 [facility] [address] [place] [address] Alex Lopes MD 06/20/20259699Tsqmdf95/14/9913Vfuxhs41/11/2025Telephone [facility] [address] 112 [facility] [address] [place] [address] HyacinthJanuary, Lab Bycugi4106/01/2025Refill [facility] [address] [place] [address] [place] [address] Alex Lopes MD Essential hypertension ; Type 2 diabetes mellitus with other diabetic kidney complication (HCC); Mixed hyperlipidemiafrom Last 3 Months Immunizations ImmunizationAdministration DatesNext DueInfluenza, seasonal, injectable 07/31/2021 Family History Medical HistoryRelationNameCommentsDiabetesBrotherDiabetesFatherHeart disease FatherDiabetesMotherHeart diseaseMotherLeukemiaSister1 sisterRelationNameStatus CommentsBrother1 brotherDaughterAlive3 daughtersFatherDeceasedMotherDeceased Sister2 sistersSonAlive1 son Social History Tobacco UseTypesPacks/DayYears UsedDateSmoking Tobacco: Some DaysCigarettes Smokeless Tobacco: Never Tobacco Cessation:Ready to Q uit: No; Counseling Given: Yes Alcohol UseStandard Drinks/WeekCommentsNot Currently0 (1 standard drink = 0.6 oz pure alcohol)B1300 Health LiteracyAnswerDate RecordedHow often do you need to have someone help you when you read instructions, pamphlets, or other written material from your doctor or pharmacy?Never12/19/2024Humiliation, Afraid, Rape, and Kick questionnaireAnswerDate RecordedWithin the last year, have you been afraid of your partner or ex-partner?Patient crpyfipv17/05/2023Within the last year, have you been humiliated or emotionally abused in other ways by your partner or ex-partner?Patient gvldraaj81/05/2023Within the last year, have you been kicked, hit, slapped, or otherwise physically hurt by your partner or ex-partner?No07/05/2023Within the last year, have you been raped or forced to have any kind of sexual activity by your partner or ex-partner?No07/05/2023 Social Connection and Isolation PanelAnswerDate RecordedIn a typical week, how many times do you talk on the phone with family, friends, or neighbors?More than three times a week12/19/2024How often do you get together with friends or relatives?More than three times a week12/19/2024How often do you attend restorationism or congregational services?Patient vkyqhdrz63/19/2025Do you belong to any clubs or organizations such as restorationism groups, unions, fraternal or athletic groups, or school groups?No12/19/2024How often do you attend meetings of the clubs or organizations you belong to?Never12/19/2024re you , , , , never , or living with a partner?Gflabbrx16/19/2025UDIT-C AnswerDate RecordedQ1: How often do you have a drink containing alcohol?Monthly or less12/19/2024Q2: How many drinks containing alcohol do you have on a typical day when you are drinking?3 or Q3: How often do you have six or more drinks on one occasion?Never12/19/2024Overall Financial Resource Strain (CARDIA) AnswerDate RecordedHow hard is it for you to pay for the very basics like food, housing, medical care, and heating?Not hard at all12/19/2024PHQ-2AnswerDate RecordedPatient Health Questionnaire-2 [facility] [place] [facility] Occup[facility] - Occupational Stress QuestionnaireAnswerDate RecordedDo you feel stress - tense, restless, nervous, or anxious, or unable to sleep at night because yourmind is troubled all the time - these days?Not at all12/19/2024 Exercise Vital SignAnswerDate RecordedOn average, how many days per week do you engage in moderate to strenuous exercise (like a brisk walk)?0 days12/19/2024On average, how many minutes do you engage in exercise at this level?20 min 12/19/2024Hunger Vital SignAnswerDate RecordedWithin the past 12 months, you worried that your food would run out before you got the money to buymore.Never true12/19/2024Within the past 12 months, the food you bought just didn't last and you didn't have money to get more.Sometimes true12/19/2024PRAPARE - TransportationAnswerDate RecordedIn the past 12 months, has lack of transportation kept you from medical appointments or from getting medications?No 12/19/2024In the past 12 months, has lack of transportation kept you from meetings, work, or from getting things needed for daily living?No12/19/2024 Housing Stability Vital SignAnswerDate RecordedIn the last 12 months, was there a time when you were not able to pay the mortgage or rent on time?No07/05/2023In the last 12 months, how many places have you lived?In the last 12 months, was there a time when you did not have a steady place to sleep or slept in ashelter (including now)?No07/05/2023Housing Stability Vital SignAnswerDate RecordedIn the last 12 months, was there a time when you were not able to pay the mortgage or rent on time?No12/19/2024Number of Times Moved in the Last Year Not on file12/19/2024t any time in the past 12 months, were you homeless or living in a senior living (including now)?No12/19/2024EducationAnswerDate RecordedWhat is the highest level of school you have completed or the highest degree you have received?Some college, no bfevpj4507/05/2023Sex and Gender InformationValueDate RecordedSex Assigned at BirthNot on fileLegal WvnIqor0301/12/2023 7:23 PM EDT Gender IdentityNot on fileSexual OrientationNot on fileOccupationIndustryJob Start DateJob End DateWork full timeNot on fileNot on fileNot on file Last Filed Vital Signs Vital SignReadingTime TakenCommentsBlood Gddmpfau543/8008 8:48 AM EDT Ofzpg7956 8:48 AM EDTTemperature--Respiratory Rate--Oxygen Cjklzbvfeu68% 06/20/2025 8:48 AM EDTInhaled Oxygen Concentration--Vvrbzu24.9 kg (207 lb) 06/20/2025 8:48 AM YIYZzghwa164.3 cm (5' 9 )06/20/2025 8:48 AM EDTBody Mass Index30.5708 8:48 AM EDT Plan of Treatment DateTypeDepartmentCare Team (Latest Contact Info)Jshupjhsyva27/20/2025 9:00 AM ESTOffice Visit [facility] [place] [address] [place] [address] Alex Lopes MD [address] [place] [address] Health MaintenanceDue DateLast DoneCommentsCT Mdtunedrlwhe1958FIT-DNA 1958FIT1958FOBT1958 3171Rfrzgkszlqfyv1958Diabetes: Hemoglobin A1C/, 12/18/2024, 06/21/2024, Additional history exists Diabetes: Urine Protein Wxhadubmz87/20/206341/, 07/06/2022, 07/15/2021, Additional history existsMedicare Annual Wellness (AWV)603/, 4Pneumococcal Vaccine: 65+ Years (1 of 2 - PCV)01/21/2026Postponed from 1977 (Patient Refused)Influenza Vaccine (#1)610/1Postponed from 07/01/2025 (Patient Refused)Diabetes: Retinopathy Fgfqhauyt97/11/2027 01/08/2025, 12/27/2022, 07/07/2021, Additional history existsColonoscopy /1Colorectal Cancer Udzcaqfxi05/20/2031 Procedures Procedure NamePriorityDate/TimeAssociated DiagnosisCommentsXR CHEST 2 VIEWS Ktgdinz2708/08/2025 2:37 PM EDT Polyarthritis Elevated erythrocyte sedimentation rate Simple chronic bronchitis (HCC) Restrictive airway disease CULTURE, HHDYMQljbkdv40/09/2025 2:19 PM EDT Polyarthritis Elevated erythrocyte sedimentation rate Hypotension, unspecified hypotension type CULTURE, GIZALKhpcysr85/09/2025 2:07 PM EDT Polyarthritis Elevated erythrocyte sedimentation rate Hypotension, unspecified hypotension type CYCLIC CITRUL PEPTIDE ANTIBODY, YJARejydob44/09/2025 2:06 PM EDT Polyarthritis Elevated erythrocyte sedimentation rate Chronic fatigue SM AND SM/RAMP LEAD CGFVBDHSZAWydhrqk48/09/2025 2:06 PM EDT Polyarthritis Elevated erythrocyte sedimentation rate Hypotension, unspecified hypotension type Low serum uric acid for age ANTI-DNA ANTIBODY, DOUBLE-BWWVIGIXAtehjkv72/09/2025 2:06 PM EDT Polyarthritis Elevated erythrocyte sedimentation rate Hypotension, unspecified hypotension type Low serum uric acid for age SJOGREN'S ANTIBODY (SS-A)Pnxmelg5708/08/2025 2:06 PM EDT Polyarthritis Elevated erythrocyte sedimentation rate Hypotension, unspecified hypotension type Low serum uric acid for age CENTROMERE B FTYIMMPHAaxchux11/09/2025 2:06 PM EDT Polyarthritis Elevated erythrocyte sedimentation rate Hypotension, unspecified hypotension type Low serum uric acid for age ANTI-NEUTROPHILIC CYTOPLASMIC LJFIEBXOZhywqws93/09/2025 2:06 PM EDT Polyarthritis Elevated erythrocyte sedimentation rate Hypotension, unspecified hypotension type Low serum uric acid for age CREATINE KINASE, DZKBWKhvfcdw89/09/2025 2:06 PM EDT Polyarthritis Elevated erythrocyte sedimentation rate Hypotension, unspecified hypotension type Low serum uric acid for age B-TYPE NATRIURETIC ZKVVAGAWhkyitb05/09/2025 2:06 PM EDT Polyarthritis Elevated erythrocyte sedimentation rate Hypotension, unspecified hypotension type Low serum uric acid for age Diastolic dysfunction COMPREHENSIVE METABOLIC POHXPWyqthyn35/09/2025 2:06 PM EDT Polyarthritis Elevated erythrocyte sedimentation rate Hypotension, unspecified hypotension type Low serum uric acid for age CBC (INCLUDES DIFF/PLT)Jkswhxd8408/08/2025 2:06 PM EDT Polyarthritis Elevated erythrocyte sedimentation rate Hypotension, unspecified hypotension type Low serum uric acid for age RHEUMATOID DHSYESWqkxqvg98/21/2025 2:11 PM EDT Arthralgia, unspecified joint ABA SCREEN W/CTYJJORdrrnsd76/21/2025 2:11 PM EDT Arthralgia, unspecified joint URIC JISEBugfhxv87/21/2025 2:11 PM EDT Arthralgia, unspecified joint SED RATE BY MODIFIED ZSFZNGHAVZRfezron41/21/2025 2:11 PM EDT Arthralgia, unspecified joint HEMOGLOBIN L3UTiscdag45/13/2025 8:38 AM EDT Type 2 diabetes mellitus with other diabetic kidney complication (HCC) Diabetic peripheral neuropathy associated with type 2 diabetes mellitus (HCC) Diabetic cataract, associated with type 2 diabetes mellitus (HCC) DIABETIC RETINOPATHY SCREENING - OU - BOTH FGAGDzlguqa70/11/2025 9:26 AM EDTPOCT GWOROYCTVLINKvototh50/20/2025 9:05 AM EST Essential hypertension Microalbuminuria Type 2 diabetes mellitus with other diabetic kidney complication (HCC) MXTAYQWVZNWFbzoqxk25/20/2021 12:00 PM EST from Last 3 Months or Most Recently Relevant to Health Maintenance Results * XR chest 2 views (08/08/2025 [...] BY: Cornelius Dill MD Authorizing ProviderResult TypeResult StatusAlex Lopes MDIMG XR PROCEDURES Final Result * Blood culture (08/08/2025 2:19 PM EDT) Only the most recent of2 resultswithin the time period is included. ComponentValueRef RangeTest MethodAnalysis TimePerformed AtPathologist Signature MICRO [id number] QUALITYSuboptimalQUESTSOURCEBLOOD, LEFT ARM QUESTSTATUSFINALQUESTRESULTSEE NOTEQUESTComment: No growth after 5 days Inspection of blood culture bottles indicates that an inadequate volume of blood may have been collected for the detection of sepsis. ISOLATE 1DNRQUESTISOLATE 2DNRQUESTISOLATE 3DNRQUESTISOLATE 4DNRQUESTISOLATE 5DNR QUESTISOLATE 6DNRQUESTCOMMENTSEE NOTEQUESTComment: Aerobic and anaerobic bottle received. Specimen (Source)Anatomical Location / LateralityCollection Method / Volume Collection TimeReceived TimeBloodVenous blood specimen / Xpxnwga2308/08/2025 2:19 PM EDT1 2:20 PM EDT Narrative Resulting Agency Comment Performing Organization Information ?Site ID: QPT ?Name: [facility] ?Address: [address] [place] [phone] ?Director: Ezekiel Andrade MD Authorizing ProviderResult TypeResult StatusAlex Lopes MDLAB MICROBIOLOGY - GENERAL ORDERABLESFinal ResultPerforming OrganizationAddressCity/State/ZIP CodePhone Number [facility] * SM AND SM/RAMP LEAD ANTIBODIES (08/08/2025 2:06 PM EDT)ComponentValueRef RangeTest MethodAnalysis TimePerformed AtPathologist SignatureSM ANTIBODY<1.0 NEG<1.0 NEG AIQUESTSM/RAMP LEAD ANTIBODY<1.0 NEG<1.0 NEG AIQUESTSpecimen (Source)Anatomical Location / LateralityCollection Method / VolumeCollection TimeReceived Time 08/08/2025 2:06 PM EDT1 2:06 PM EDT Narrative Resulting Agency Comment Performing Organization Information ?Site ID: QPT ?Name: [facility] ?Address: [address] [place] [address], [address] [place] [address] ?Director: Ezekiel Andrade MD Authorizing ProviderResult TypeResult StatusAlex Lopes [facility] BLOOD ORDERABLESFinal ResultPerforming OrganizationAddressty/State/ZIP CodePhone Number [facility] * CENTROMERE B ANTIBODY (08/08/2025 2:06 PM EDT)ComponentValueRef RangeTest MethodAnalysis TimePerformed AtPathologist SignatureCENTROMERE B ANTIBODY<1.0 NEG<1.0 NEG AIQUESTSpecimen (Source)Anatomical Location / LateralityCollection Method / VolumeCollection TimeReceived Time08/08/2025 2:06 PM EDT1 2:06 PM EDT Narrative Resulting Agency Comment Performing Organization Information ?Site ID: QPT ?Name: [facility] ?Address: [address] [place] [address], [address] [place] [address] ?Director: Ezekiel Andrade MD Authorizing ProviderResult TypeResult StatusAlex Lopes [facility] BLOOD ORDERABLESFinal ResultPerforming OrganizationAddressty/State/ZIP CodePhone Number [facility] * Cyclic citrul peptide antibody, IgG (08/08/2025 2:06 PM EDT)ComponentValueRef RangeTest MethodAnalysis TimePerformed AtPathologist SignatureCYCLIC CITRULLINATED PEPTIDE (CCP) AB (IGG)<16UNITSQUESTComment: Reference Range Negative: <20 Weak Positive: ? 20-39 Moderate Positive: ?? 40-59 Strong Positive: >59 Specimen (Source)Anatomical Location / LateralityCollection Method / Volume Collection TimeReceived TimeBloodVenous blood specimen / Mqzeekn7308/08/2025 2:06 PM EDT1 2:06 PM EDT Narrative Resulting Agency Comment Performing Organization Information ?Site ID: QPT ?Name: [facility] ?Address: [address] [place] [address], [address] [place] [address] ?Director: Ezekiel Andrade MD Authorizing ProviderResult TypeResult StatusAlex ZALDIVAR BLOOD ORDERABLESFinal ResultPerforming OrganizationAddressCity/State/ZIP CodePhone Number [facility] * Anti-DNA antibody, double-stranded (08/08/2025 2:06 PM EDT)ComponentValueRef RangeTest MethodAnalysis TimePerformed AtPathologist SignatureDNA (DS) ANTIBODY<1IU/mLQUESTComment: ? IU/mL ? Interpretation < or = 4 Negative ? 5-9 ? Indeterminate > or = 10 Positive Specimen (Source)Anatomical Location / LateralityCollection Method / Volume Collection TimeReceived TimeBloodVenous blood specimen / Kfgmtpf7908/08/2025 2:06 PM EDT1 2:06 PM EDT Narrative Resulting Agency Comment Performing Organization Information ?Site ID: QPT ?Name: [facility] ?Address: [address] [place] [address], [address] [place] [phone] ?Director: Ezekiel Andrade MD Authorizing ProviderResult TypeResult StatusAlex Lopes MDLAB BLOOD ORDERABLESFinal ResultPerforming OrganizationAddressCity/State/ZIP CodePhone Number [facility] * Anti-neutrophilic cytoplasmic antibody (08/08/2025 2:06 PM EDT)ComponentValue Ref RangeTest MethodAnalysis TimePerformed AtPathologist Signature MYELOPEROXIDASE ANTIBODY<1.0AIQUESTComment: ? Value ?Interpretation ? ----- ? <1.0 No Antibody Detected > or = 1.0 Antibody Detected ? Autoantibodies to myeloperoxidase (MPO) are commonly associated with the following small-vessel vasculitides: microscopic polyangiitis, polyarteritis nodosa, Churg-Fidencio syndrome, necrotizing and crescentic glomerulonephritis and occasionally granulomatosis with polyangiitis (GPA, Janak's). The perinuclear IFA pattern, (p-ANCA) is based largely on autoantibody to myeloperoxidase which serves as the primary antigen. These autoantibodies are present in active disease. PROTEINASE-3 ANTIBODY<1.0AIQUESTComment: ? Value ?Interpretation ? ----- ? <1.0 No Antibody Detected > or = 1.0 Antibody Detected ? Autoantibodies to proteinase-3 (VT-3) are accepted as characteristic for granulomatosis with polyangiitis (GPA, Janak's), and are detectable in 95% of the histologically proven cases. The cytoplasmic IFA pattern, (c-ANCA), is based largely on autoantibody to VT-3 which serves as the primary antigen. These autoantibodies are present in active disease. Specimen (Source)Anatomical Location / LateralityCollection Method / Volume Collection TimeReceived TimeBloodVenous blood specimen / Rsumncc4108/08/2025 2:06 PM EDT1 2:06 PM EDT Narrative Resulting Agency Comment Performing Organization Information ?Site ID: QPT ?Name: [facility] ?Address: [address] [place] [address], [address] [place] [phone] ?Director: Ezekiel Andrade MD Authorizing ProviderResult TypeResult StatusEdahsan Lopes MDLAB BLOOD ORDERABLESFinal ResultPerforming OrganizationAddressCity/State/ZIP CodePhone Number [facility] * Sjogrens syndrome-A extractable nuclear antibody (08/08/2025 2:06 PM EDT) ComponentValueRef RangeTest MethodAnalysis TimePerformed AtPathologist SignatureSJOGREN'S ANTIBODY (SS-A)<1.0 NEG<1.0 NEG AIQUESTSpecimen (Source) Anatomical Location / LateralityCollection Method / VolumeCollection Time Received TimeBloodVenous blood specimen / Azzsblb6608/08/2025 2:06 PM EDT 08/08/2025 2:06 PM EDT Narrative Resulting Agency Comment Performing Organization Information ?Site ID: QPT ?Name: [facility] ?Address: [address] [place] [address], [address] [place] [phone] ?Director: Ezekiel Andrade MD Authorizing ProviderResult TypeResult StatusEdahsan Lopes MDLAB BLOOD ORDERABLESFinal ResultPerforming OrganizationAddressCity/State/ZIP CodePhone Number [facility] * (ABNORMAL) CBC and differential (08/08/2025 2:06 PM EDT)ComponentValueRef RangeTest MethodAnalysis TimePerformed AtPathologist SignatureWHITE BLOOD CELL COUNT8.73.8 - 10.8 Thousand/uLQUESTRED BLOOD CELL COUNT4.494.20 - 5.80 Million/yERMVDVKBWSZKNKWO67.6(L)13.2 - 17.1 g/kNTDZNUXXERBBNSDS19.938.5 - 50.0 %EOXXARNE29.180.0 - 100.0 rBRVFOXCUU68.127.0 - 33.0 ulNMTRPGFMP06.8(L)32.0 - 36.0 g/dLQUESTComment: For adults, a slight decrease in the calculated MCHC value (in the range of 30 to 32 g/dL) is most likely not clinically significant; however, it should be interpreted with caution in correlation with other red cell parameters and the patient's clinical condition. RDW15.011.0 - 15.0 %QUESTPLATELET JFQME188798 - 400 Thousand/fRXGEDXOOT74.47.5 - 12.5 fLQUESTABSOLUTE NEUTROPHILS5,8201,500 - 7,800 cells/uLQUESTABSOLUTE BAND NEUTROPHILSCANCELED0 - 750 cells/uLQUESTComment:Result canceled by the ancillary.ABSOLUTE METAMYELOCYTESCANCELED0 cells/uLQUESTComment:Result canceled by the ancillary.ABSOLUTE MYELOCYTESCANCELED0 cells/uLQUESTComment:Result canceled by the ancillary.ABSOLUTE PROMYELOCYTESCANCELED0 cells/uLQUESTComment: Result canceled by the ancillary.ABSOLUTE LYMPHOCYTES1,461784 - 3,900 cells/uL QUESTABSOLUTE FQKFZGJEX291850 - 950 cells/uLQUESTABSOLUTE DCBDYXMQJVY11113 - 500 cells/uLQUESTABSOLUTE CEOMWLGRU771 - 200 cells/uLQUESTABSOLUTE BLASTSCANCELED0 cells/uLQUESTComment:Result canceled by the ancillary.ABSOLUTE NUCLEATED RBC CANCELED0 cells/uLQUESTComment:Result canceled by the ancillary.BWMHTILSWKP67.9% QUESTBAND NEUTROPHILSCANCELED%QUESTComment:Result canceled by the ancillary. METAMYELOCYTESCANCELED%QUESTComment:Result canceled by the ancillary. CIPROFLOXICINCANCELED%QUESTComment:Result canceled by the ancillary. PROMYELOCYTESCANCELED%QUESTComment:Result canceled by the ancillary.LYMPHOCYTES 22.9%QUESTREACTIVE LYMPHOCYTESCANCELED0 - 10 %QUESTComment:Result canceled by the ancillary.MONOCYTES7.2%QUESTEOSINOPHILS2.2%QUESTBASOPHILS0.8%QUESTBLASTS CANCELED%QUESTComment:Result canceled by the ancillary.NUCLEATED RBCCANCELED0 /100 WBCQUESTComment:Result canceled by the ancillary.COMMENT(S)CANCELEDQUEST Comment:Result canceled by the ancillary.Specimen (Source)Anatomical Location / LateralityCollection Method / VolumeCollection TimeReceived TimeBloodVenous blood specimen / Cbqmgff0108/08/2025 2:06 PM EDT1 2:06 PM EDT Narrative Resulting Agency Comment Performing Organization Information ?Site ID: QPT ?Name: [email or web address] ?Address: [address] [place] [address], [address] [place] [phone] ?Director: Ezekiel Andrade MD Authorizing ProviderResult TypeResult StatusEdahsan Lopes MDLAB BLOOD ORDERABLESFinal ResultPerforming OrganizationAddressCity/State/ZIP CodePhone Number [facility]ST * B-type natriuretic peptide (08/08/2025 2:06 PM EDT)ComponentValueRef RangeTest MethodAnalysis TimePerformed AtPathologist SignatureB TYPE NATRIURETIC PEPTIDE (BNP)36<100 pg/mLQUESTComment: BNP levels increase with age in the general population with the highest values seen in individuals greater than 75 years of age. Reference: J. Am. Celestine. Cardiol. 2002; 40:976-982. Specimen (Source)Anatomical Location / LateralityCollection Method / Volume Collection TimeReceived TimeBloodVenous blood specimen / Keqvyiu9308/08/2025 2:06 PM EDT1 2:06 PM EDT Narrative Resulting Agency Comment Performing Organization Information ?Site ID: QPT ?Name: [facility] [employer] ?Address: [facility] , [address] [place], [place] [id number] ?Director: Ezekiel Andrade MD Authorizing ProviderResult TypeResult StatusAlex ZALDIVAR BLOOD ORDERABLESFinal ResultPerforming OrganizationAddressty/State/ZIP CodePhone Number [facility]ST * CK (08/08/2025 2:06 PM EDT)ComponentValueRef RangeTest MethodAnalysis Time Performed AtPathologist SignatureCREATINE KINASE, NQRAS4673 - 308 U/LQUEST Specimen (Source)Anatomical Location / LateralityCollection Method / Volume Collection TimeReceived TimeBloodVenous blood specimen / Gjxekjj5508/08/2025 2:06 PM EDT1 2:06 PM EDT Narrative Resulting Agency Comment Performing Organization Information ?Site ID: QPT ?Name: [facility] ?Address: [facility] , [address] [place] [address] ?Director: Ezekiel Andrade MD Authorizing ProviderResult TypeResult StatusEdahsan ZALDIVAR BLOOD ORDERABLESFinal ResultPerforming OrganizationAddressty/State/[facility] CodePhone Number [facility] * (ABNORMAL) Comprehensive metabolic panel (08/08/2025 2:06 PM EDT)Component ValueRef RangeTest MethodAnalysis TimePerformed AtPathologist SignatureGlucose 8465 - 99 mg/dLQUESTComment: ? Fasting reference interval AHV486 - 25 mg/dLQUESTCreatinine0.65(L)0.70 - 1.35 mg/bFTXFVTJLTS598> OR = 60 mL/min/1.19k9XDTMKDTX/CREATININE CXQYQ171 - 22 (calc)ACQSPJdnduz708754 - 146 mmol/LQUESTPotassium, Bld4.33.5 - 5.3 mmol/QJYJDLCixcocgm78766 - 110 mmol/LQUEST Carbon Phkgour2741 - 32 mmol/LQUESTCalcium9.78.6 - 10.3 mg/dLQUESTPROTEIN, TOTAL 6.86.1 - 8.1 g/dLQUESTALBUMIN4.33.6 - 5.1 g/dLQUESTGLOBULIN2.51.9 - 3.7 g/dL (calc)QUESTALBUMIN/GLOBULIN RATIO1.71.0 - 2.5 (calc)QUESTBILIRUBIN, TOTAL0.30.2 - 1.2 mg/dLQUESTALKALINE XPUEOCZQGKV1935 - 144 U/SWXXFNBCQ4522 - 35 U/LQUESTALT 139 - 46 U/LQUESTSpecimen (Source)Anatomical Location / LateralityCollection Method / VolumeCollection TimeReceived TimeBloodVenous blood specimen / Unknown 08/08/2025 2:06 PM EDT1 2:06 PM EDT Narrative Resulting Agency Comment Performing Organization Information ?Site ID: QPT ?Name: [facility] [employer] ?Address: [address] [place] [address] ?Director: Ezekiel Andrade MD Authorizing ProviderResult TypeResult StatusAlex ZALDIVAR BLOOD ORDERABLESFinal ResultPerforming OrganizationAddressCity/State/[facility] CodePhone Number [facility] * (ABNORMAL) Sedimentation rate, automated (06/20/2025 2:11 PM EDT)Component ValueRef RangeTest MethodAnalysis TimePerformed AtPathologist SignatureSED RATE BY MODIFIED ZDRVONBOWE34(H)< OR = 20 mm/hQUESTSpecimen (Source)Anatomical Location / LateralityCollection Method / VolumeCollection TimeReceived Time BloodVenous blood specimen / Rlkuecq5006/20/2025 2:11 PM EDT06/20/2025 2:12 PM EDT Narrative [facility] - 06/21/2025 1:51 PM EDT MULTIPLE TESTING PRIORITIES; ROUTINE TESTING TO FOLLOW. Resulting Agency Comment Performing Organization Information ?Site ID: QPT ?Name: [facility] [employer] ?Address: [address] [place] [address] ?Director: Ezekiel Andrade MD Authorizing ProviderResult TypeResult Amisha ZALDIVAR BLOOD ORDERABLESFinal ResultPerforming OrganizationAddressty/[facility] CodePhone Number [facility]ST * Rheumatoid factor (06/20/2025 2:11 PM EDT)ComponentValueRef RangeTest Method Analysis TimePerformed AtPathologist SignatureRHEUMATOID BENBUN91<14 IU/mL QUESTSpecimen (Source)Anatomical Location / LateralityCollection Method / VolumeCollection TimeReceived TimeBloodVenous blood specimen / Unknown 06/20/2025 2:11 PM EDT06/20/2025 2:12 PM EDT Narrative [facility] - 06/21/2025 1:51 PM EDT MULTIPLE TESTING PRIORITIES; ROUTINE TESTING TO FOLLOW. Resulting Agency Comment Performing Organization Information ?Site ID: QPT ?Name: [facility] [employer] ?Address: [address] [place] [address], [address] [place] [phone] ?Director: Ezekiel Andrade MD Authorizing ProviderResult TypeResult StatusAlex Lopes MDLAB BLOOD ORDERABLESFinal ResultPerforming OrganizationAddressCity/State/ZIP CodePhone Number QUEST * ABA (06/20/2025 2:11 PM EDT)ComponentValueRef RangeTest MethodAnalysis Time Performed AtPathologist SignatureANA SCREEN, IFANEGATIVENEGATIVEQUESTComment: ABA IFA is a first line screen for detecting the presence of up to approximately 150 autoantibodies in various autoimmune diseases. A negative ABA IFA result suggests an ABA-associated autoimmune disease is not present at this time, but is not definitive. If there is high clinical suspicion for Sjogren's syndrome, testing for anti-SS-A/Ro antibody should be considered. Anti-Brandy-1 antibody should be considered for clinically suspected inflammatory myopathies. AC-0: Negative International Consensus on ABA Patterns (https://doi.org/10.1515/kggs-0823-9776) For additional information, please refer to http://education.[employer].Hall/faq/CRB615 (This link is being provided for informational/ educational purposes only.) ?? Specimen (Source)Anatomical Location / LateralityCollection Method / Volume Collection TimeReceived TimeBloodVenous blood specimen / Vjrciuj9306/20/2025 2:11 PM EDT06/20/2025 2:12 PM EDT Narrative [facility] - 06/21/2025 1:51 PM EDT MULTIPLE TESTING PRIORITIES; ROUTINE TESTING TO FOLLOW. Resulting Agency Comment Performing Organization Information ?Site ID: QPT ?Name: [facility] ?Address: [address] [place] [address], [address] [place], [place] [phone] ?Director: Ezekiel Andrade MD Authorizing ProviderResult TypeResult StatusAlex Lopes [facility] BLOOD ORDERABLESFinal ResultPerforming OrganizationAddressty/State/[facility] CodePhone Number [facility] * (ABNORMAL) Uric acid (06/20/2025 2:11 PM EDT)ComponentValueRef RangeTest MethodAnalysis TimePerformed AtPathologist SignatureURIC ACID3.8(L)4.0 - 8.0 mg/dLQUESTComment: Therapeutic target for gout patients: <6.0 mg/dL ?? Specimen (Source)Anatomical Location / LateralityCollection Method / Volume Collection TimeReceived TimeBloodVenous blood specimen / Aggdsud3206/20/2025 2:11 PM EDT06/20/2025 2:12 PM EDT Narrative [facility] - 06/21/2025 1:51 PM EDT MULTIPLE TESTING PRIORITIES; ROUTINE TESTING TO FOLLOW. Resulting Agency Comment Performing Organization Information ?Site ID: QPT ?Name: [facility] ?Address: [address] [place] [address], [address] [place] [address] ?Director: Ezekiel Andrade MD Authorizing ProviderResult TypeResult StatusAlex Lopes [facility] BLOOD ORDERABLESFinal ResultPerforming OrganizationAddressty/[facility] CodePhone Number [facility] * (ABNORMAL) Hemoglobin A1c (06/12/2025 8:38 AM EDT)ComponentValueRef RangeTest MethodAnalysis TimePerformed AtPathologist SignatureHemoglobin A1C7.6(H)<5.7 % QUESTComment: For someone without known diabetes, a hemoglobin A1c value of 6.5% or greater indicates that they may have diabetes and this should be confirmed with a follow-up test. For someone with known diabetes, a value <7% indicates that their diabetes is well controlled and a value greater than or equal to 7% indicates suboptimal control. A1c targets should be individualized based on duration of diabetes, age, comorbid conditions, and other considerations. Currently, no consensus exists regarding use of hemoglobin A1c for diagnosis of diabetes for children. Specimen (Source)Anatomical Location / LateralityCollection Method / Volume Collection TimeReceived TimeBloodVenous blood specimen / Gunvpni5706/12/2025 8:38 AM EDT06/12/2025 3:45 PM EDT Narrative Resulting Agency Comment Performing Organization Information ?Site ID: QPT ?Name: [facility] [employer] ?Address: [address] [place] [address], [address] [place] [phone] ?Director: Ezekiel Andrade MD Authorizing ProviderResult TypeResult StatusAlex Lopes MDLAB BLOOD ORDERABLESFinal ResultPerforming OrganizationAddressCity/State/ZIP CodePhone Number QUEST * Diabetic Retinopathy Screening - OU - Both Eyes (01/08/2025 9:26 AM EDT) Anatomical RegionLateralityModalityHeadOther Narrative Authorizing ProviderResult TypeResult StatusAlex Lopes MDOPHTH PHOTOGRAPHY Final Result * (ABNORMAL) POCT microalbumin manually resulted (12/20/2024 9:05 AM EST) ComponentValueRef RangeTest MethodAnalysis TimePerformed AtPathologist SignatureMICROALBUMIN, ZODBL13HAK/CREAT EEODQ24FQODG CREAT0.5Specimen (Source) Anatomical Location / LateralityCollection Method / VolumeCollection Time Received BaewVheur23/20/2025 9:05 AM EST Narrative Authorizing ProviderResult TypeResult Amisha Lopes MDPOINT OF CARE TEST ENTER/EDIT ORDERABLESFinal Result * Colonoscopy (11/19/2020 12:00 PM EST)Anatomical RegionLateralityModality EndoscopySpecimen (Source)Anatomical Location / LateralityCollection Method / VolumeCollection TimeReceived Time11/19/2020 12:00 PM EST Narrative 11/19/2020 12:00 PM EST PERFORMED AT [facility] LOCATION:[id number] Procedure Note CONVERSION, GENERIC - 03/16/2023 PERFORMED AT [facility] LOCATION:[id number] Authorizing ProviderResult TypeResult StatusAlex Lopes MDENDOSCOPY PROCEDURE ORDERABLESFinal Result from Last 3 Months or Most Recently Relevant to Health Maintenance Insurance Care Teams Team MemberRelationshipSpecialtyStart DateEnd Date Alex Lopes MD [address] [address] PCP - GeneralFamily Medicine03/08/23 Alex Lopes MD [address] [address] PCP - Jaclyn PASCAL10/31/24 Jamel Nagy MD [address] [place] [phone] Referring PhysicianUrology01/21/25
--- OUTSIDE RECORDS SUMMARY | 2025-08-22 14:58 | XMS_ITS | Encounter Summary ---
Author Organization [facility] tem Address [id number] [address] [place] [address] Care Team Providers Care Steward/[employer] Name Role Phone Unavailable Primary Care Provider Unavailabl e Encounter Details DateTypeDepartmentCare Team (Latest Contact Info)Dtvmsfaerir31/22/2025Travel Social History Tobacco UseTypesPacks/DayYears UsedDateSmoking Tobacco: Never AssessedChildcare AnswerDate SlbmihkgCpyzlkpeuSnfdptd76/12/2019EmploymentAnswerDate Recorded XwftjhuphtHurhblx86/12/2019Sex and Gender InformationValueDate RecordedSex Assigned at BirthNot on fileLegal KjsHwdk6406/05/2015 11:30 AM EDTGender Identity Not on fileSexual OrientationNot on filedocumented as of this encounter Plan of Treatment DateTypeDepartmentCare Team (Latest Contact Info)Hqjqspdcdqj48/24/2025 9:45 AM ESTOffice Visit [facility] Department of [facility] [address] [phone] Fela Camejo MD [address] [address] documented as of this encounter Visit Diagnoses Not on filedocumented in this encounter
--- OUTSIDE RECORDS SUMMARY | 2025-08-22 14:58 | XMS_ITS | Encounter Summary ---
Author Organization [facility] tem Address [id number] [address] [place] [address] Care Team Providers Care Information Broker Name Role Phone Unavailable Primary Care Provider Unavailabl e Encounter Details DateTypeDepartmentCare Team (Latest Contact Info)Butqwsjyani46/13/2025Telephone [facility], [facility] Department of [address] [phone] Teresa He PA [address] [place] [phone] Social History Tobacco UseTypesPacks/DayYears UsedDateSmoking Tobacco: Never AssessedChildcare AnswerDate RzwkhggnJixvobysqDwwyyym72/12/2019EmploymentAnswerDate Recorded HcaonvaqqwKbhodyp55/12/2019Sex and Gender InformationValueDate RecordedSex Assigned at BirthNot on fileLegal MzbXzhc1806/05/2015 11:30 AM EDTGender Identity Not on fileSexual OrientationNot on filedocumented as of this encounter Miscellaneous Notes * Telephone Encounter - Adeline Soares - 08/12/2025 3:52 PM EDT NEW PATIENT REFERRAL NO ACTIVE PHONE NUMBER DX MYALGIA DUE TO STRAIN CHRONIC PAIN ARTHRALGIA UNSPECIFIED JOINT documented in this encounter Plan of Treatment DateTypeDepartmentCare Team (Latest Contact Info)Hhskitcvlbh35/24/2025 9:45 AM ESTOffice Visit [facility] Department of [facility] [address] [phone] Fela Camejo MD [address] [address] documented as of this encounter Visit Diagnoses Not on filedocumented in this encounter
--- OUTSIDE RECORDS SUMMARY | 2025-08-22 14:58 | XMS_ITS | Encounter Summary ---
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 Name Role Phone Alex Jeffrey MD Primary Care Provider [phone] Alex Jeffrey MD Unavailable [phone] Jamel Nagy MD Unavailable [phone] Reason for Visit * ReasonOnset DateCommentsCare Ompojsdisyia81/08/2025 Encounter Details DateTypeDepartmentCare Team (Latest Contact Info)Nygpfclklod97/08/2025Telephone [facility] [address] [place] [address] Shelia German MA Care Coordination Social History Tobacco UseTypesPacks/DayYears UsedDateSmoking Tobacco: Some [...] been afraid of your partner or ex-partner?Patient rbjcnump15/05/2023Within the last year, have you been humiliated or emotionally abused in other ways by your partner or ex-partner?Patient rolgjsic90/05/2023 Within the last year, have you been kicked, hit, slapped, or otherwise physically hurt by your partner or ex-partner?No07/05/2023Within the last year, have you been raped or forced to have any kind of sexual activity by your part ner or ex-partner?07/05/2023Social Connection and Isolation PanelAnswerDate RecordedIn a typical week, how many times do you talk on the phone with family, friends, or neighbors?More than three times a week12/19/2024How often do you get together with friends or relatives?More than three times a week12/19/2024How often do you attend sabianist or islam services?Patient xokmgvnh51/19/2025Do you belong to any clubs or organizations such as sabianist groups, unions, fraQik or athletic groups, or school groups?No12/19/2024How often do you attend meetings of the clubs or organizations you belong to?Never12/19/2024re you , , , , never , or living with a partner?Dtxwlkpb35/19/2025UDIT-CAnswerDate RecordedQ1: How often do you have a [...] hard at all12/19/2024PHQ-2AnswerDate RecordedPatient Health Questionnaire-2 Score0 06/20/2025[facility] [place] [facility] - Occupational Stress QuestionnaireAnswerDate [...] steady place to sleep or slept in [facility] (including now)?No07/05/2023Housing Stability Vital SignAnswerDate RecordedIn the last 12 months, was there a time when you were not able to pay the mortgage or rent on time?No12/19/2024Number of Times Moved in the Last YearNot on file12/19/2024t any time in the past 12 months, were you homeless or living in a group home (including now)?No12/19/2024EducationAnswerDate RecordedWhat is the highest level of school you have completed or the highest degree you have received?Some college, no lesetk7507/05/2023Sex and Gender InformationValueDate RecordedSex Assigned at BirthNot on fileLegal SexMale 01/12/2023 7:23 PM EDTGender IdentityNot on fileSexual OrientationNot on file OccupationIndustryJob Start DateJob End DateWork full timeNot on fileNot on file Not on filedocumented as of this encounter Miscellaneous Notes * Addendum Note - January NAIDA German - 08/08/2025 9:06 AM EDTAddended by: SHELIA GERMAN on: 08/08/2025 09:06 AM Modules accepted: Orders * Telephone Encounter - Shelia German MA - 08/08/2025 9:03 AM EDT Patient was notified and verbalized understanding. He/She knows to contact office with any further questions. He is going for the XR and labs today. He stated that with the swelling and pain in his hands he cannot drive to [place] to go to [facility] so declined that. He denied that he would be quitting smoking and did not think that this was the culprit. He stated he is only taking the nabumetome that [facility] rx but does not think it works. * Addendum Note - Alex Jeffrey MD - 08/08/2025 7:41 AM EDTAddended by: ALEX JEFFREY on: 08/08/2025 07:41 AM Modules accepted: Orders * Telephone Encounter - Alex Jeffrey MD - 08/08/2025 7:38 AM EDT January, At this point several things need to happen. First he needs to help us. Stopped eating sugar, stay well hydrated, and stopped smoking. I have also made the decision to push on with his evaluation, and labs and chest x-ray are ordered.He needs to go get those done. This will take approximately 2 weeks to get all the results back Allan need to see him in the office then. Change his rheumatology referral to Dr. [facility]. He should restart the Jardiance. Have him continue to hold the losartan. He should continue the low-dose metoprolol until we get the BNP test and the CBC back. Also again confirm that he is only taking 1 of the anti-inflammatories either the nabumetone or thenaproxen but not both of them that are in his medication list. * Telephone Encounter - Shelia German MA - 08/07/2025 12:52 PM EDT Ant is still holding his Losartan and you decreased his Metoprolol again. Here are his newest readings at that three hour albin that he was bottoming out. 105/68 109/70 On a second note, rheumatology cannot get him in for 6 months at [facility] and his hands and knees hurt so bad and his hands are still swollen. He's done steroids and you put him on nabumetome. Neither of which have helped. You had him hold his jardiance to see if since it was a new medication that itwould be the cause and he notices no difference. documented in this encounter Plan of Treatment DateTypeDepartmentCare Team (Latest Contact Info)Uyaofdbjygb90/20/2025 9:00 AM ESTOffice Visit [facility] [address] Medicine [address] [address] Alex Jeffrey MD 112 [facility] 100 [place] [address] documented as of this encounter Procedures Procedure NamePriorityDate/TimeAssociated DiagnosisCommentsCULTURE, BLOODRoutine 08/08/2025 2:19 PM EDT Polyarthritis Elevated erythrocyte sedimentation rate Hypotension, unspecified hypotension type CULTURE, KGBMMRlkvxhn66/09/2025 2:07 PM EDT Polyarthritis Elevated erythrocyte sedimentation rate Hypotension, unspecified hypotension type SM AND SM/HOSTAGE NEGOTIATOR ZDKAWMYTKYWzgvryu75/09/2025 2:06 PM EDT Polyarthritis Elevated erythrocyte sedimentation rate Hypotension, unspecified hypotension type Low serum uric acid for age CENTROMERE B CBAUOBVHKetwuug92/09/2025 2:06 PM EDT Polyarthritis Elevated erythrocyte sedimentation rate Hypotension, unspecified hypotension type Low serum uric acid for age CYCLIC CITRUL PEPTIDE ANTIBODY, EHXWjzistk98/09/2025 2:06 PM EDT Polyarthritis Elevated erythrocyte sedimentation rate Chronic fatigue ANTI-DNA ANTIBODY, DOUBLE-ANHVLEYFYdpomws20/09/2025 2:06 PM EDT Polyarthritis Elevated erythrocyte sedimentation rate Hypotension, unspecified hypotension type Low serum uric acid for age ANTI-NEUTROPHILIC CYTOPLASMIC QDPKRTLGLmytlge11/09/2025 2:06 PM EDT Polyarthritis Elevated erythrocyte sedimentation rate Hypotension, unspecified hypotension type Low serum uric acid for age SJOGREN'S ANTIBODY (SS-A)Gtqsgkg4508/08/2025 2:06 PM EDT Polyarthritis Elevated erythrocyte sedimentation rate Hypotension, unspecified hypotension type Low serum uric acid for age CBC (INCLUDES DIFF/PLT)Ibebrhf6608/08/2025 2:06 PM EDT Polyarthritis Elevated erythrocyte sedimentation rate Hypotension, unspecified hypotension type Low serum uric acid for age B-TYPE NATRIURETIC EYRUBOPUcroldw13/09/2025 2:06 PM EDT Polyarthritis Elevated erythrocyte sedimentation rate Hypotension, unspecified hypotension type Low serum uric acid for age Diastolic dysfunction CREATINE KINASE, QPVLWUfothoq64/09/2025 2:06 PM EDT Polyarthritis Elevated erythrocyte sedimentation rate Hypotension, unspecified hypotension type Low serum uric acid for age COMPREHENSIVE METABOLIC LRBNYRgbmlrp98/09/2025 2:06 PM EDT Polyarthritis Elevated erythrocyte sedimentation rate Hypotension, unspecified hypotension type Low serum uric acid for age documented in this encounter Results * XR [...] Cornelius Dill MD Authorizing ProviderResult TypeResult StatusEdahsan Jeffrey MDIMG XR PROCEDURES Final Result * Blood culture (08/08/2025 2:19 PM EDT)ComponentValueRef RangeTest Method Analysis TimePerformed AtPathologist SignatureMICRO [id number] SPECIMEN QUALITYSuboptimalQUESTSOURCEBLOOD, LEFT ARMQUESTSTATUSFINALQUEST RESULTSEE NOTEQUESTComment: No growth after 5 days Inspection of blood culture bottles indicates that an inadequate volume of blood may have been collected for the detection of sepsis. ISOLATE 1DNRQUESTISOLATE 2DNRQUESTISOLATE 3DNRQUESTISOLATE 4DNRQUESTISOLATE 5DNR QUESTISOLATE 6DNRQUESTCOMMENTSEE NOTEQUESTComment: Aerobic and anaerobic bottle received. Specimen (Source)Anatomical Location / LateralityCollection Method / Volume Collection TimeReceived TimeBloodVenous blood specimen / Ldbqlqi8208/08/2025 2:19 PM EDT1 2:20 PM EDT Narrative Resulting Agency Comment Performing Organization Information ?Site ID: QPT ?Name: [facility] ?Address: [address] [place] [address], [address] [place] [phone] ?Director: Ezekiel Andrade MD Authorizing ProviderResult TypeResult StatusAlex Jeffrey [facility] MICROBIOLOGY - GENERAL ORDERABLESFinal ResultPerforming OrganizationAddressCity/State/ZIP CodePhone Number [facility] * Blood culture (08/08/2025 2:07 PM EDT)ComponentValueRef RangeTest Method Analysis TimePerformed AtPathologist SignatureMICRO [id number] SPECIMEN QUALITYSuboptimalQUESTSOURCEBLOODQUESTSTATUSFINALQUESTRESULTSEE NOTE QUESTComment: No growth after 5 days Inspection of blood culture bottles indicates that an inadequate volume of blood may have been collected for the detection of sepsis. ISOLATE 1DNRQUESTISOLATE 2DNRQUESTISOLATE 3DNRQUESTISOLATE 4DNRQUESTISOLATE 5DNR QUESTISOLATE 6DNRQUESTCOMMENTSEE NOTEQUESTComment: Aerobic and anaerobic bottle received. Specimen (Source)Anatomical Location / LateralityCollection Method / Volume Collection TimeReceived TimeBloodVenous blood specimen / Aiajdjh7008/08/2025 2:07 PM EDT1 2:08 PM EDT Narrative Resulting Agency Comment Performing Organization Information ?Site ID: QPT ?Name: [facility] ?Address: [address] [place] [address] ?Director: Ezekiel Andrade MD Authorizing ProviderResult TypeResult StatusAlex ZALDIVAR MICROBIOLOGY - GENERAL ORDERABLESFinal ResultPerforming OrganizationAddressAv[facility] CodePhone Number [facility] * Cyclic citrul peptide antibody, IgG (08/08/2025 2:06 PM EDT)ComponentValueRef RangeTest MethodAnalysis TimePerformed AtPathologist SignatureCYCLIC CITRULLINATED PEPTIDE (CCP) AB (IGG)<16UNITSQUESTComment: Reference Range Negative: <20 Weak Positive: ? 20-39 Moderate Positive: ?? 40-59 Strong Positive: >59 Specimen (Source)Anatomical Location / LateralityCollection Method / Volume Collection TimeReceived TimeBloodVenous blood specimen / Tjypbfe0408/08/2025 2:06 PM EDT1 2:06 PM EDT Narrative Resulting Agency Comment Performing Organization Information ?Site ID: QPT ?Name: [facility] ?Address: [address] [place] [address] ?Director: Ezekiel Andrade MD Authorizing ProviderResult TypeResult StatusEdahsan ZALDIVAR BLOOD ORDERABLESFinal ResultPerforming OrganizationAddressCity/State/ZIP CodePhone Number [facility] * SM AND SM/HOSTAGE NEGOTIATOR ANTIBODIES (08/08/2025 2:06 PM EDT)ComponentValueRef RangeTest MethodAnalysis TimePerformed AtPathologist SignatureSM ANTIBODY<1.0 NEG<1.0 NEG AIQUESTSM/HOSTAGE NEGOTIATOR ANTIBODY<1.0 NEG<1.0 NEG AIQUESTSpecimen (Source)Anatomical Location / LateralityCollection Method / VolumeCollection TimeReceived Time 08/08/2025 2:06 PM EDT1 2:06 PM EDT Narrative Resulting Agency Comment Performing Organization Information ?Site ID: QPT ?Name: [facility] ?Address: [address] [place] [address], [address] [place] [address] ?Director: Ezekiel Andrade MD Authorizing ProviderResult TypeResult StatusAlex ZALDIVAR BLOOD ORDERABLESFinal ResultPerforming OrganizationAddressCity/State/ZIP CodePhone Number [facility] * Anti-DNA antibody, double-stranded (08/08/2025 2:06 PM EDT)ComponentValueRef RangeTest MethodAnalysis TimePerformed AtPathologist SignatureDNA (DS) ANTIBODY<1IU/mLQUESTComment: ? IU/mL ? Interpretation < or = 4 Negative ? 5-9 ? Indeterminate > or = 10 Positive Specimen (Source)Anatomical Location / LateralityCollection Method / Volume Collection TimeReceived TimeBloodVenous blood specimen / Lpbguqz5908/08/2025 2:06 PM EDT1 2:06 PM EDT Narrative Resulting Agency Comment Performing Organization Information ?Site ID: QPT ?Name: [facility] ?Address: [address] [place] [address], [address] [place] [phone] ?Director: Ezekiel Andrade MD Authorizing ProviderResult TypeResult StatusAlex ZALDIVAR BLOOD ORDERABLESFinal ResultPerforming OrganizationAddLancaster General Hospitalty/State/ZIP CodePhone Number [facility] * Sjogrens syndrome-A extractable nuclear antibody (08/08/2025 2:06 PM EDT) ComponentValueRef RangeTest MethodAnalysis TimePerformed AtPathologist SignatureSJOGREN'S ANTIBODY (SS-A)<1.0 NEG<1.0 NEG AIQUESTSpecimen (Source) Anatomical Location / LateralityCollection Method / VolumeCollection Time Received TimeBloodVenous blood specimen / Eomcoap4208/08/2025 2:06 PM EDT 08/08/2025 2:06 PM EDT Narrative Resulting Agency Comment Performing Organization Information ?Site ID: QPT ?Name: [facility] ?Address: [address] [place] [address], [address] [place] [address] ?Director: Ezekiel Andrade MD Authorizing ProviderResult TypeResult StatusAlex ZALDIVAR BLOOD ORDERABLESFinal ResultPerforming OrganizationAddressty/[facility]/ZIP CodePhone Number [facility] * CENTROMERE B ANTIBODY (08/08/2025 2:06 PM EDT)ComponentValueRef RangeTest MethodAnalysis TimePerformed AtPathologist SignatureCENTROMERE B ANTIBODY<1.0 NEG<1.0 NEG AIQUESTSpecimen (Source)Anatomical Location / LateralityCollection Method / VolumeCollection TimeReceived Time08/08/2025 2:06 PM EDT1 2:06 PM EDT Narrative Resulting Agency Comment Performing Organization Information ?Site ID: QPT ?Name: [facility] ?Address: [address] [place] [address], [address] [place] [address] ?Director: Ezekiel Andrade MD Authorizing ProviderResult TypeResult StatusAlex ZALDIVAR BLOOD ORDERABLESFinal ResultPerforming OrganizationAddressty/State/ZIP CodePhone Number [facility] * Anti-neutrophilic cytoplasmic antibody [...] 1.0 Antibody Detected ? Autoantibodies to proteinase-3 (IL-3) are accepted as characteristic for granulomatosis with polyangiitis (GPA, Janak's), and are detectable in 95% of the histologically proven cases. The cytoplasmic IFA pattern, (c-ANCA), is based largely on autoantibody to IL-3 which serves as the primary antigen. These autoantibodies are present in active disease. Specimen (Source)Anatomical Location / LateralityCollection Method / Volume Collection TimeReceived TimeBloodVenous blood specimen / Pkxufga2008/08/2025 2:06 PM EDT1 2:06 PM EDT Narrative Resulting Agency Comment Performing Organization Information ?Site ID: QPT ?Name: [facility] ?Address: [address] [place] [address], [address] [place] [phone] ?Director: Ezekiel Andrade MD Authorizing ProviderResult TypeResult StatusEdahsan Jeffrey MDLAB BLOOD ORDERABLESFinal ResultPerforming OrganizationAddressCity/State/ZIP CodePhone Number [facility] * CK (08/08/2025 2:06 PM EDT)ComponentValueRef RangeTest MethodAnalysis Time Performed AtPathologist SignatureCREATINE KINASE, [id number] - 308 U/LQUEST Specimen (Source)Anatomical Location / LateralityCollection Method / Volume Collection TimeReceived TimeBloodVenous blood specimen / Nkfjyok4508/08/2025 2:06 PM EDT1 2:06 PM EDT Narrative Resulting Agency Comment Performing Organization Information ?Site ID: QPT ?Name: [facility] ?Address: [address] [place] [address], [address] [place] [address] ?Director: Ezekiel Andrade MD Authorizing ProviderResult TypeResult StatusAlex Jeffrey [facility] BLOOD ORDERABLESFinal ResultPerforming OrganizationAddLancaster General Hospitalty/[facility]/ZIP CodePhone Number [facility] * B-type natriuretic peptide [...] Volume Collection TimeReceived TimeBloodVenous blood specimen / Nguqbmh3808/08/2025 2:06 PM EDT1 2:06 PM EDT Narrative Resulting Agency Comment Performing Organization Information ?Site ID: QPT ?Name: [facility] ?Address: [address] [place] [address], [address] [place] [address] ?Director: Ezekiel Andrade MD Authorizing ProviderResult TypeResult Amisha Jeffrey [facility] BLOOD ORDERABLESFinal ResultPerforming OrganizationAddLancaster General Hospitalty/State/ZIP CodePhone Number [facility] * (ABNORMAL) Comprehensive metabolic panel (08/08/2025 2:06 PM EDT)Component ValueRef RangeTest MethodAnalysis TimePerformed AtPathologist SignatureGlucose 8465 - 99 mg/dLQUESTComment: ? Fasting reference interval LCY061 - 25 mg/dLQUESTCreatinine0.65(L)0.70 - 1.35 mg/kSAIGOTFHDL769> OR = 60 mL/min/1.84o6KKAFWSND/CREATININE NMZGV464 - 22 (calc)FDWCAAqypuz675923 - 146 mmol/LQUESTPotassium, Bld4.33.5 - 5.3 mmol/IPYGCNFpidwmgd52664 - 110 mmol/LQUEST Carbon Kcbiqbg2343 - 32 mmol/LQUESTCalcium9.78.6 - 10.3 mg/dLQUESTPROTEIN, TOTAL 6.86.1 - 8.1 g/dLQUESTALBUMIN4.33.6 - 5.1 g/dLQUESTGLOBULIN2.51.9 - 3.7 g/dL (calc)QUESTALBUMIN/GLOBULIN RATIO1.71.0 - 2.5 (calc)QUESTBILIRUBIN, TOTAL0.30.2 - 1.2 mg/dLQUESTALKALINE NTFMYOLJBKH4971 - 144 U/GFRWENNVJ1407 - 35 U/LQUESTALT 139 - 46 U/LQUESTSpecimen (Source)Anatomical Location / LateralityCollection Method / VolumeCollection TimeReceived TimeBloodVenous blood specimen / Unknown 08/08/2025 2:06 PM EDT1 2:06 PM EDT Narrative Resulting Agency Comment Performing Organization Information ?Site ID: QPT ?Name: [facility] ?Address: [address] [place] [address], [address] [place] [phone] ?Director: Ezekiel Andrade MD Authorizing ProviderResult TypeResult StatusEdahsan Jeffrey MDLAB BLOOD ORDERABLESFinal ResultPerforming OrganizationAddressCity/State/ZIP CodePhone Number [facility] * (ABNORMAL) CBC and differential (08/08/2025 2:06 PM EDT)ComponentValueRef RangeTest MethodAnalysis TimePerformed AtPathologist SignatureWHITE BLOOD CELL COUNT8.73.8 - 10.8 Thousand/uLQUESTRED BLOOD CELL COUNT4.494.20 - 5.80 Million/lVUILQBSERYMUYJLV34.6(L)13.2 - 17.1 g/gLYDQPXEKMVTTOLSU05.938.5 - 50.0 %EAHWCYIK06.180.0 - 100.0 jOWMTRYFPY59.127.0 - 33.0 raLTRPDSLAF95.8(L)32.0 - 36.0 g/dLQUESTComment: For adults, a slight decrease in the calculated MCHC value (in the range of 30 to 32 g/dL) is most likely not clinically significant; however, it should be interpreted with caution in correlation with other red cell parameters and the patient's clinical condition. RDW15.011.0 - 15.0 %QUESTPLATELET MQXWH778707 - 400 Thousand/lJBUBAUDKI14.47.5 - 12.5 fLQUESTABSOLUTE NEUTROPHILS5,8201,500 - 7,800 cells/uLQUESTABSOLUTE BAND NEUTROPHILSCANCELED0 - 750 cells/uLQUESTComment:Result canceled by the ancillary.ABSOLUTE METAMYELOCYTESCANCELED0 cells/uLQUESTComment:Result canceled by the ancillary.ABSOLUTE MYELOCYTESCANCELED0 cells/uLQUESTComment:Result canceled by the ancillary.ABSOLUTE PROMYELOCYTESCANCELED0 cells/uLQUESTComment: Result canceled by the ancillary.ABSOLUTE LYMPHOCYTES1,344511 - 3,900 cells/uL QUESTABSOLUTE EINRLKNXR026350 - 950 cells/uLQUESTABSOLUTE XFBVWEGOMTE61746 - 500 cells/uLQUESTABSOLUTE LHQDXOZLP300 - 200 cells/uLQUESTABSOLUTE BLASTSCANCELED0 cells/uLQUESTComment:Result canceled by the ancillary.ABSOLUTE NUCLEATED RBC CANCELED0 cells/uLQUESTComment:Result canceled by the ancillary.YWPVBKINOIR70.9% QUESTBAND NEUTROPHILSCANCELED%QUESTComment:Result canceled by the ancillary. METAMYELOCYTESCANCELED%QUESTComment:Result canceled by the ancillary. CIPROFLOXICINCANCELED%QUESTComment:Result canceled by the ancillary. PROMYELOCYTESCANCELED%QUESTComment:Result canceled by the ancillary.LYMPHOCYTES 22.9%QUESTREACTIVE LYMPHOCYTESCANCELED0 - 10 %QUESTComment:Result canceled by the ancillary.MONOCYTES7.2%QUESTEOSINOPHILS2.2%QUESTBASOPHILS0.8%QUESTBLASTS CANCELED%QUESTComment:Result canceled by the ancillary.NUCLEATED RBCCANCELED0 /100 WBCQUESTComment:Result canceled by the ancillary.COMMENT(S)CANCELEDQUEST Comment:Result canceled by the ancillary.Specimen (Source)Anatomical Location / LateralityCollection Method / VolumeCollection TimeReceived TimeBloodVenous blood specimen / Giqldsf9108/08/2025 2:06 PM EDT1 2:06 PM EDT Narrative Resulting Agency Comment Performing Organization Information ?Site ID: QPT ?Name: [facility] ?Address: [address] [place] [address], [address] [place] [phone] ?Director: Ezekiel Andrade MD Authorizing ProviderResult TypeResult StatusEdahsan Jeffrey MDLAB BLOOD ORDERABLESFinal ResultPerforming OrganizationAddressCity/State/ZIP CodePhone Number [facility] documented in this encounter Visit Diagnoses Diagnosis Polyarthritis- Primary Unspecified polyarthropathy or polyarthritis, site unspecified Elevated erythrocyte sedimentation rate Elevated sedimentation rate Hypotension, unspecified hypotension type Low serum uric acid for age Simple chronic bronchitis (HCC) Simple chronic bronchitis Restrictive airway disease Diastolic dysfunction Unspecified heart disease Rheumatoid factor positive Other and unspecified nonspecific immunological findings Chronic fatigue Other malaise and fatigue Polyarthritis Unspecified polyarthropathy or polyarthritis, site unspecified Elevated erythrocyte sedimentation rate Elevated sedimentation rate Simple chronic bronchitis (HCC) Simple chronic bronchitis Restrictive airway disease documented in this encounter Additional Health Concerns AssessmentNoted TimePHQ-9 Depression Total Score: 7001/21/2025 9:00 AM EDT documented as of this encounter Care Teams Team MemberRelationshipSpecialtyStart DateEnd Date Alex Jeffrey MD [address] [address] (Fax) PCP - GeneralFamily Medicine03/08/23 Alex Jeffrey MD [address] [address] (Fax) PCP - Jaclyn PASCAL10/31/24 Jamel Nagy MD [address] [place] [address] Referring PhysicianUrology01/21/25documented as of this encounter
--- OUTSIDE RECORDS SUMMARY | 2025-08-22 14:58 | XMS_ITS | Clinical Summary ---
Author Organization [employer] Address [id number] [address] [place] [address] Care Team Providers Care Snuff Grinder And Screener Name Role Phone Unavailable Primary Care Provider Unavailabl e Allergies No known active allergies Medications MedicationSigDispense QuantityRefillsLast FilledStart DateEnd DateStatus losartan (COZAAR) 100 mg tablet Take 1 tablet (100 mg total) by mouth in the morning.5Active metFORMIN (GLUCOPHAGE) 1000 mg tablet Take 1 tablet (1,000 mg total) by mouth daily with breakfast.5Active JARDIANCE 25 mg tablet tablet Take 1 tablet (25 mg total) by mouth in the morning.5Active fenofibrate (TRICOR) 145 mg tablet Take 1 tablet (145 mg total) by mouth in the morning.5Active magnesium oxide (MAGOX) 400 mg tablet Take 250 mg by mouth in the morning.Active metoprolol tartrate (LOPRESSOR) 100 mg tablet Take 25 mg by mouth in the morning and 25 mg before bedtime.5Active predniSONE (DELTASONE) 10 mg tablet Indications:Inflammatory polyarthritis (CMS-HCC)4 tab daily 1 week,then 3 tab daily 1 week,then 2 tab daily 1 week,then 1.5 tab daily 70 tablet 5Active predniSONE (DELTASONE) 10 mg tablet Indications:Inflammatory polyarthritis (CMS-HCC)Take 1 tablet (10 mg total) by mouth in the morning. 4 tab daily 1 week,then 3 tab daily 1 week,then 2 tab daily 1 week,then 1.5 tab daily. 70 tablet Discontinued Active Problems No known active problems Encounters DateTypeDepartmentCare JtksIxapiilvdcz36/22/2025 12:23 PM EDT - 08/21/2025 11:59 PM EDTHospital Encounter [facility] [address] [place] [phone] Inflammatory polyarthritis ([facility]) Discharge Disposition: Home08/21/2025 12:23 PM EDT - 08/21/2025 11:59 PM EDT Hospital Encounter [facility] [address] [address] Inflammatory polyarthritis ([facility]) Discharge Disposition: Home08/21/2025 12:23 PM EDT - 08/21/2025 11:59 PM EDT Hospital Encounter [facility] [address] [place] [phone] Inflammatory polyarthritis ([facility]) Discharge Disposition: Home08/21/2025 12:00 PM EDTOffice Visit [facility] Department of [address] [address] Fela Camejo MD Inflammatory polyarthritis ([facility]-H[facility]) (Primary Dx)08/21/20258846Wkbsvr26/13/2025 Telephone [facility] Department of [address] [address] Teresa He PA from Last 3 Months Social History Tobacco UseTypesPacks/DayYears UsedDateSmoking Tobacco: Never AssessedChildcare AnswerDate JlezpqwiYcuyktrslWoapvdi02/12/2019EmploymentAnswerDate Recorded YwqilemffmWbghheu35/12/2019Sex and Gender InformationValueDate RecordedSex Assigned at BirthNot on fileLegal HiqXbvf7306/05/2015 11:30 AM EDTGender Identity Not on fileSexual OrientationNot on file Last Filed Vital Signs Vital SignReadingTime TakenCommentsBlood Raantrbs512/8408/21/2025 11:29 AM EDT Pulse--Temperature--Respiratory Pzii4743/ 11:29 AM EDTOxygen Saturation-- Inhaled Oxygen Concentration--Rizmxu76 kg (194 lb)08/21/2025 11:29 AM EDTHeight- -Body Mass Index-- Plan of Treatment DateTypeDepartmentCare Team (Latest Contact Info)Cxqinzkssvo22/24/2025 9:45 AM ESTOffice Visit [facility] of [facility] [address] [address] Fela Camejo MD [address] [address] Health MaintenanceDue DateLast DoneCommentsDepression Fbxzfmrhn13/21/1970Tobacco Suyavhfwk56/21/1970Adult BMI Ncwmyihud11/21/1976DTaP,Tdap and Td Vaccines (1 - Tdap)1977Zoster (Shingles) Vaccine (1 of 2)2008Fall Risk Screening 3COVID-19 Vaccine (3 - season)/, 08/27/2021 Influenza Fxhrflu51 [employer] Not on file Procedures Procedure NamePriorityDate/TimeAssociated DiagnosisCommentsXR CHEST 2 VWSRoutine 08/21/2025 12:37 PM EDT Inflammatory polyarthritis (CMS-HCC) XR KNEES BILAT STANDING DWMwyvxfo19/22/2025 12:37 PM EDT Inflammatory polyarthritis (CMS-HCC) XR OSSEOUS SURVEY UOSHRAXHhhnura27/22/2025 12:36 PM EDT Inflammatory polyarthritis (CMS-HCC) from Last 3 Months Results * X-ray chest 2 views (08/21/2025 [...] on 08/21/2025 4:22 PM Authorizing ProviderResult TypeResult StatusKhmadhavi Camejo MDG DIAGNOSTIC IMAGING ORDERABLESFinal Result * X-ray knees [...] on 08/22/2025 4:03 AM Authorizing ProviderResult TypeResult StatusKhader Camejo [facility] DIAGNOSTIC IMAGING ORDERABLESFinal Result * X-ray osseous [...] on 08/22/2025 4:02 AM Authorizing ProviderResult TypeResult StatusKhadeargentina Camejo MDJonatan DIAGNOSTIC IMAGING ORDERABLESFinal Result from Last 3 Months Insurance
--- OUTSIDE RECORDS SUMMARY | 2025-08-22 14:58 | XMS_ITS | Encounter Summary ---
Author Organization [facility] Address [address] [place] [address] Care Team Providers Care Weblogic Developer Name Role Phone Alex Lopes MD Primary Care Provider [phone] Alex Lopes MD Unavailable [phone] Jamel Nagy MD Unavailable [phone] Encounter Details DateTypeDepartmentCare Team (Latest Contact Info)Yhloforbkyj25/13/2025Orders Only [facility] [address] [phone] Hyacinth January, [place] Social History Tobacco UseTypesPacks/DayYears UsedDateSmoking Tobacco: Some [...] been afraid of your partner or ex-partner?Patient zfcruljz10/05/2023Within the last year, have you been humiliated or emotionally abused in other ways by your partner or ex-partner?Patient enhlkefm78/05/2023 Within the last year, have you been [...] week12/19/2024How often do you attend restorationism or mormonism services?Patient /19/2025Do you belong to any clubs or organizations such as restorationism groups, unions, fraEcometrica or athletic groups, or school groups?No12/19/2024How often do you attend meetings of the clubs or organizations you belong to?Never12/19/2024re you , , , , never , or living with a partner?Hejgdjln78/19/2025UDIT-CAnswerDate RecordedQ1: How often do you have a [...] hard at all12/19/2024PHQ-2AnswerDate RecordedPatient Health Questionnaire-2 Score0 06/20/2025[facility] [place] of Occupational Health - Occupational Stress QuestionnaireAnswerDate [...] steady place to sleep or slept in [facility] (including now)?No07/05/2023Housing Stability Vital SignAnswerDate RecordedIn the last 12 months, was there a time when you were not able to pay the mortgage or rent on time?No12/19/2024Number of Times Moved in the Last YearNot on file12/19/2024t any time in the past 12 months, were you homeless or living in a alf (including now)?No12/19/2024EducationAnswerDate RecordedWhat is the highest level of school you have completed or the highest degree you have received?Some college, no hfkuhq3307/05/2023Sex and Gender InformationValueDate RecordedSex Assigned at BirthNot on fileLegal SexMale 01/12/2023 7:23 PM EDTGender IdentityNot on fileSexual OrientationNot on file OccupationIndustryJob Start DateJob End DateWork full timeNot on fileNot on file Not on filedocumented as of this encounter Plan of Treatment DateTypeDepartmentCare Team (Latest Contact Info)Ihjrnmyqfum72/20/2025 9:00 AM ESTOffice Visit [facility] [address] [place] [address] [place] [address] Alex Lopes MD [address] [place] [facility] 100 [place] [address] documented as of this encounter Visit Diagnoses Not on filedocumented in this encounter Additional Health Concerns AssessmentNoted TimePHQ-9 Depression Total Score: 9:00 AM EDT documented as of this encounter Care Teams Team MemberRelationshipSpecialtyStart DateEnd Date Alex Lopes MD 112 [facility] 100 [place] [address] PCP - GeneralFamily Medicine03/08/23 Alex Lopes MD [address] [address] (Fax) PCP - Jaclyn PASCAL10/31/24 Jamel Nagy MD [address] [place] [address] Referring PhysicianUrology01/21/25documented as of this encounter
--- OUTSIDE RECORDS SUMMARY | 2025-08-22 14:58 | XMS_ITS | Encounter Summary ---
Author Organization [facility] Address [address] [place] [address] Care Team Providers Care Marquetry Worker Name Role Phone Alex Lopes MD Primary Care Provider [phone] Alex Lopes MD Unavailable [phone] Jamel Nagy MD Unavailable [phone] Reason for Visit * ReasonOnset DateCommentsCare Ukxqtnulnixb39/16/2025 Encounter Details DateTypeDepartmentCare Team (Latest Contact Info)Uukkvplatah78/16/2025Telephone [facility] [address] 100 [place] [address] Shelia Claros MA Care Coordination Social History Tobacco UseTypesPacks/DayYears [...] been afraid of your partner or ex-partner?Patient /05/2023Within the last year, have you been humiliated or emotionally abused in other ways by your partner or ex-partner?Patient mdajmqse54/05/2023 Within the last year, have you been [...] times a week12/19/2024How often do you attend confucianist or faith services?Patient mbmmdbon34/19/2025Do you belong to any clubs or organizations such as confucianist groups, unions, fraPrime Advantage or athletic groups, or school groups?No12/19/2024How often do you attend meetings of the clubs or organizations you belong to?Never12/19/2024re you , , , , never , or living with a partner?Cjransuw53/19/2025UDIT-CAnswerDate RecordedQ1: How often do you have a [...] hard at all12/19/2024PHQ-2AnswerDate RecordedPatient Health Questionnaire-2 Score0 06/20/2025[facility] [place] of Occupational Health - Occupational Stress QuestionnaireAnswerDate [...] steady place to sleep or slept in [facility] (including now)?No07/05/2023Housing Stability Vital SignAnswerDate RecordedIn the last 12 months, was there a time when you were not able to pay the mortgage or rent on time?No12/19/2024Number of Times Moved in the Last YearNot on file12/19/2024t any time in the past 12 months, were you homeless or living in a jail (including now)?No12/19/2024EducationAnswerDate RecordedWhat is the highest level of school you have completed or the highest degree you have received?Some college, no vauafs6507/05/2023Sex and Gender InformationValueDate RecordedSex Assigned at BirthNot on fileLegal SexMale 01/12/2023 7:23 PM EDTGender IdentityNot on fileSexual OrientationNot on file OccupationIndustryJob Start DateJob End DateWork full timeNot on fileNot on file Not on filedocumented as of this encounter Miscellaneous Notes * Telephone Encounter - January NAIDA Claros - 08/15/2025 11:00 AM EDT Patient was notified and verbalized understanding. He/She knows to contact office with any further questions. documented in this encounter Plan of Treatment DateTypeDepartmentCare Team (Latest Contact Info)Sgmvynzwjwk28/20/2025 9:00 AM ESTOffice Visit [facility] [address] [address] Alex Lopes MD [address] [place] [address] [address] documented as of this encounter Visit Diagnoses Not on filedocumented in this encounter Additional Health Concerns AssessmentNoted TimePHQ-9 Depression Total Score: 7001/21/2025 9:00 AM EDT documented as of this encounter Care Teams Team MemberRelationshipSpecialtyStart DateEnd Date Alex Lopes MD [address] [address] PCP - GeneralFamily Medicine03/08/23 Alex Lopes MD [address] [address] PCP - Jaclyn PASCAL10/31/24 Jamel Nagy MD [address] [place] [address] Referring PhysicianUrology01/21/25documented as of this encounter
--- OUTSIDE RECORDS SUMMARY | 2025-08-22 14:58 | XMS_ITS | Encounter Summary ---
Author Organization [facility] Address [address] [place] [address] Care Team Providers Care Fusing Machine Operator Name Role Phone Alex Lopes MD Primary Care Provider [phone] Alex Lopes MD Unavailable [phone] Jamel Nagy MD Unavailable [phone] Encounter Details DateTypeDepartmentCare Team (Latest Contact Info)Yaoiqmvvhds75/09/2025Travel Social History Tobacco UseTypesPacks/DayYears UsedDateSmoking Tobacco: Some [...] been afraid of your partner or ex-partner?Patient irjoorit71/05/2023Within the last year, have you been humiliated or emotionally abused in other ways by your partner or ex-partner?Patient /05/2023 Within the last year, have you been [...] times a week12/19/2024How often do you attend tenriism or latter day services?Patient exovqmqb29/19/2025Do you belong to any clubs or organizations such as tenriism groups, unions, fraSymbiosis Health or athletic groups, or school groups?No12/19/2024How often do you attend meetings of the clubs or organizations you belong to?Never12/19/2024re you , , , , never , or living with a partner?Xcdxkzni83/19/2025UDIT-CAnswerDate RecordedQ1: How often do you have a [...] hard at all12/19/2024PHQ-2AnswerDate RecordedPatient Health Questionnaire-2 Score0 06/20/2025[facility] [place] of Occupational Health - Occupational Stress QuestionnaireAnswerDate [...] highest degree you have received?Some college, no oqqylr2407/05/2023Sex and Gender InformationValueDate RecordedSex Assigned at BirthNot on fileLegal SexMale 01/12/2023 7:23 PM EDTGender IdentityNot on fileSexual OrientationNot on file OccupationIndustryJob Start DateJob End DateWork full timeNot on fileNot on file Not on filedocumented as of this encounter Plan of Treatment DateTypeDepartmentCare Team (Latest Contact Info)Bzilkanbepz26/20/2025 9:00 AM ESTOffice Visit [facility] 112 [facility] 100 [place] [address] Alex Lopes MD 112 [facility] 100 [place] [address] documented as of this encounter Visit Diagnoses Not on filedocumented in this encounter Additional Health Concerns AssessmentNoted TimePHQ-9 Depression Total Score: 9:00 AM EDT documented as of this encounter Care Teams Team MemberRelationshipSpecialtyStart DateEnd Date Alex Lopes MD [address] [place] [address] PCP - GeneralFamily Medicine03/08/23 Alex Lopes MD [address] [place] [address] PCP - Jaclyn PASCAL10/31/24 Jamel Nagy MD [address] [place] [address] Referring PhysicianUrology01/21/25documented as of this encounter
--- OUTSIDE RECORDS SUMMARY | 2025-08-22 15:00 | XMS_ITS | CCD ---
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 Name Role Phone ALEX WEEKS Primary Care Physician [phone] BRIAN SILVA, DR DON Madison Consulting Unavailmary anne TORRES JR, DR DON Madison Admitting Unavailmary anne e RACHELE, DR MONROE Primary Care Unavailable BRIAN SILVA, DR DON Madison Attending Unavailmary anne JEFFREY, DR MONROE Primary Care Unavailable RUFINO, DR FRANCOIS Consulting Unavailable BRIAN SILVA, DR ODN Madison Admitting Unavailmary anne TORRES JR, DR DON Madison Attending Unavailmary anne e NELLA, DR MICHAEL Russell Consulting Unavailable BRIAN SILVA, DR DON Madison Consulting Unavailmary anne e AGUBOSIM, REHANA Consulting Unavailable RACHANAJUDE Consulting Unavailable BRIAN SILVA, DR DON Madison Attending Unavailabl e RACHELE, DR MONROE Primary Care Unavailable NELLA, DR MICHAEL Russell Consulting Unavailable BRIAN SILVA, DR DON Madison Admitting Unavailmary anne TORRES JR, DR DON Madison Consulting Unavailmary anne PAUL, DR EASTMAN Admitting Unavailable RACHELE, DR MONROE Primary Care Unavailable NELLA, DR MICHAEL Russell Consulting Unavailable BEVERLY, DR EASTMAN Attending Unavailable BEVERLY, DR EASTMAN Consulting Unavailable Alex Jeffrey MD Primary Care Provider Alex Jeffrey MD Primary Care Provider [phone] Alex Jeffrey MD Unavailable [phone] Alex Jeffrey MD Unavailable Alex Jeffrey MD Unavailable Jamel Nagy MD Unavailable ALEX JEFFREY Attending Unavailable ALEX JEFFREY Attending Unavailable ALEX JEFFREY Attending Unavailable ALEX JEFFREY Referring Unavailable Jamel Nagy MD Unavailable [phone] Cassie Stearns Attending Unavailable Unavailable Primary Care Provider Unavailabl e Allergies Allergy ClassificationReported Allergen(s)Allergy TypeDate of OnsetReaction(s) Facility (6 sources)Ketorolac; Translations: [ketorolac]Drug AllergyWeal (disorder) [facility] (7 sources)Penicillins; Translations: [penicillins]Drug ocaxlwt25-05-4350Bbsfokd (finding)[facility] (1 source)CiprofloxacinDrug Esqtlmv15-36-0804[facility] (14 sources)atorvastatinDrug Drpazxq83-24-6933EEZ[facility] (13 sources)glipiZIDEDrug Wjookdz60-89-7146AL intoleranceNONC [facility] (14 sources)Ketorolac trometamolAllergy to utmtnznet16-71-9294XJII [facility] (14 sources)Penicillin GDrug Eiyhkdi28-59-6139HTAP [facility] (14 sources)Rosuvastatin calciumAllergy to luqxvbxle74-69-7226[facility] Medications Current Medications MedicationDrug Class(es)DatesSig (Normalized)Sig (Original)acetaminophen 325 mg / oxyCODONE hydrochloride 5 mg oral tablet (2 sources)Opioid AgonistStart: 20-55-6598Mzhffyof 5 mg-325 mg oral tablet 1 tab(s), Oral, q6hr Pain 8-10, 20 tab(s), Refill(s) 0, [id number], 177, cm, 03/08/22 8:42:00 EDT, Height/Length Dosing, 98, kg, 03/08/22 8:42:00 EDT, Weight Dosing Start Date: 03/08/22 Status: [id number] 200 actuat albuterol 0.09 mg/actuat metered dose inhaler (17 sources)beta2-Adrenergic AgonistStart: 45-75-6585pxnd 2 puff(s) by inhalation every four hours for wheezingalbuterol HFA 90 mcg/act inhaler Indications: Simple chronic bronchitis (HCC) Inhale 2 puffs every 4 (four) hours if needed for wheezing or shortness of breath 54 g 1 02/05/2025 ActiveStart: 07-10-2024 End: 94-08-0843edvt 2 puff(s) by inhalation every four hours for wheezing albuterol HFA 90 mcg/act inhaler Indications: Simple chronic bronchitis (CMS/HCC) Inhale 2 puffs every 4 (four) hours if needed for wheezing 54 g 1 07/10/2024 ActiveStart: 69-39-0653dkwv 2 puff(s) by inhalation every four hours for wheezingalbuterol HFA 90 mcg/act inhaler Indications: Simple chronic bronchitis (CMS/HCC) Inhale 2 puffs every 4 (four) hours if needed for wheezing 54 g 1 12/28/2023 ActiveStart: 84-29-7259MrmWom HFA Inhalation, q6hr, Refill(s) 0 Start Date: 02/11/20 Status: OrderedamLODIPine 10 mg oral tablet (4 sources)Dihydropyridine Calcium Channel BlockerStart: 19-80-8967otcu 1 tablet by mouth once dailyamLODIPine 10 mg Tab 10 mg = 1 tab(s), Oral, Daily, # 30 tab(s), Refills(s) 0 Start Date: 02/11/20 Status: Orderedaspirin 81 mg delayed release oral tablet (20 sources)Platelet Aggregation Inhibitor, Nonsteroidal Anti-inflammatory Drug Start: 30-13-9850xase 1 tablet by mouth once dailyaspirin 81 MG EC tablet Indications: Mixed hyperlipidemia Take 1 tablet (81 mg) by mouth Daily 06/20 ActiveStart: 14-80-4151mjnw 1 tablet by mouth once dailyaspirin 81 MG EC tablet Indications: Mixed hyperlipidemia Take 1 tablet (81 mg) by mouth Daily 06/20/2025 ActiveStart: 02-11-2020 End: 89-38-8964atow 1 tablet by mouth once dailyaspirin 81 mg Oral EC Tab 81 mg = 1 tab(s), Oral, Daily, # 30 tab(s), Refills(s) 0 Start Date: 02/11/20 Status: OrderedStart: 33-98-8562poat 1 tablet by mouth once dailyaspirin 81 mg Oral EC Tab 81 mg = 1 tab(s), Oral, Daily, # 30 tab(s), Refills(s) 0 Start Date: 02/11/20 Status: OrderedBlood Glucose Monitoring Suppl (ONE TOUCH ULTRA 2) w/Device kit (13 sources)Start: 55-84-1739Jufhw Glucose Monitoring Suppl (ONE TOUCH ULTRA 2) w/Device kit Indications: Type 2 diabetes mellitus with other diabetic kidney complication (HCC) fsbs 1 kit 3 06/26/2024 ActiveStart: 38-38-2371Xcnhm Glucose Monitoring Suppl (ONE TOUCH ULTRA 2) w/Device kit Indications: Type 2 diabetes mellitus with other diabetic kidney complication (CMS/HCC) fsbs 1 kit 3 06/26/2024 Activeciprofloxacin 500 mg oral tablet (1 source)Quinolone AntimicrobialStart: 03-08-2022 End: 30-34-3981ildi 1 tablet by mouth every twelve hoursCipro 500 mg Tab 500 mg = 1 tab(s), Oral, q12hr, X 3 day(s), # 6 tab(s), Refills(s) 0, Pharmacy: [id number], 177, cm, 03/08/22 8:42:00 EDT, Height/Length Dosing, 98, kg, 03/08/22 8:42:00 EDT, Weight Dosing Start Date: 03/08/22 Stop Date: 03/11/22 Status: Ordereddocosahexaenoic acid 120 mg / eicosapentaenoic acid 180 mg oral capsule (14 sources)take 1 capsule by mouth in the morningomega-3 (Fish Oil) 1000 MG capsule Take 1,000 mg by mouth in the morning. Activeempagliflozin 25 mg oral tablet (4 sources)Sodium-Glucose Cotransporter 2 InhibitorStart: 06-20-2025 End: 46-97-7016blor 1 tablet by mouth in the morningJARDIANCE 25 mg tablet tablet Take 1 tablet (25 mg total) by mouth in the morning. 06/20/2025 Active fenofibrate 145 mg oral tablet (9 sources)Peroxisome Proliferator Receptor alpha AgonistStart: 01-31-2025 End: 09-55-9322lwrg 1 tablet by mouth in the morningfenofibrate (TRICOR) 145 mg tablet Take 1 tablet (145 mg total) by mouth in the morning. 5Active Start: 12-20-2024 End: 65-98-7123lnuz 1 tablet by mouth once dailyfenofibrate (Tricor) 145 MG tablet Indications: Mixed hyperlipidemia (CMS/HCC) Take 1 tablet (145 mg) by mouth Daily 30 tablet 12/20/2024 01/19/2025 ActiveFish Oils (5 sources)Start: 96-85-6164Ogav Oil Oral, Refill(s) 0 Start Date: 02/11/20 Status: Orderedgemfibrozil 600 mg oral tablet (2 sources)Peroxisome Proliferator Receptor alpha AgonistStart: 36-67-4628rnfe 1 tablet by mouth twice dailygemfibrozil 600 mg Tab 600 mg = 1 tab(s), Oral, BID, # 60 tab(s), Refills(s) 0 Start Date: 02/11/20 Status: OrderedglipiZIDE 5 mg oral tablet (1 source)SulfonylureaStart: 69-18-5042xuxmqRPBT 5 mg Tab Refills(s) 0 Start Date: 08/02/23 Status: OrderedhydroCHLOROthiazide 25 mg / losartan potassium 100 mg oral tablet (2 sources)Thiazide Diuretic, Angiotensin 2 Receptor BlockerStart: 08-02-2023 hydrochlorothiazide-losartan 25 mg-100 mg Tab Refill(s) 0 Start Date: 08/02/23 Status: Orderedhyoscyamine sulfate 0.125 mg oral tablet (2 sources)Start: 14-61-2535uwhp 1 tablet by mouth four times daily as needed for muscle spasmsLevsin 0.125 mg SL Tab 0.125 mg = 1 tab(s), Oral, QID, PRN spasm, # 20 tab(s), Refills(s) 1, Pharmacy: [facility] #[id number], 177, cm, 03/08/22 8:42:00 EDT, Height/Length Dosing, 98, kg, 03/08/22 8:42:00 EDT, Weight Dosing Start Date: 03/08/22 Status: Orderedlosartan potassium 100 mg oral tablet (20 sources)Angiotensin 2 Receptor BlockerStart: 12-28-2023 End: 49-90-3573gsxw 1 tablet by mouth in the morninglosartan (COZAAR) 100 mg tablet Take 1 tablet (100 mg total) by mouth in the morning. 06/20/2025 Active Start: 45-33-2369lnqk 1 tablet by mouth once dailylosartan 100 mg Tab 100 mg = 1 tab(s), Oral, Daily, # 30 tab(s), Refills(s) 0 Start Date: 02/11/20 Status: OrderedMagnesium (14 sources)take 1 tablet by mouth once dailymagnesium 250 MG tablet Take 1 tablet by mouth 1 (one) time each day at the same time Activetake 2 tablets by mouth once dailymagnesium 250 MG tablet Take 2 tablets by mouth 1 (one) time each day at the same time. Activemagnesium oxide 400 mg oral tablet (1 source)magnesium oxide (MAGOX) 400 mg tablet Take 250 mg by mouth in the morning. ActivemetFORMIN hydrochloride 1000 mg oral tablet (20 sources)BiguanideStart: 29-19-3720zonf 1 tablet by mouth once daily at breakfastmetFORMIN (GLUCOPHAGE) 1000 mg tablet Take 1 tablet (1,000 mg total) by mouth daily with breakfast.06/20/2025 ActiveStart: 02-11-2020 End: 99-75-3225ajne 1 tablet by mouth in the morningmetFORMIN (Glucophage) 1000 MG tablet Indications: Type 2 diabetes mellitus with other diabetic kidney complication (HCC) Take 1 tablet (1,000 mg) by mouth in the morning and 1 tablet (1,000 mg) in the evening. Take with meals. 180 tablet 06/20/2025 12/17/2025 Activemetoprolol tartrate 25 mg oral tablet (20 sources)beta-Adrenergic BlockerStart: 07-29-2025 End: 89-43-7620bdmf 0.5 tablet by mouth in the morningmetoprolol tartrate (Lopressor) 25 MG tablet Indications: Essential hypertension Take 0.5 tablets (1 2.5 mg) by mouth in the morning and 0.5 tablets (12.5 mg) before bedtime. 07/29/2025 07/29/2026 ActiveStart: 17-74-7365kerllvlqtw tartrate (LOPRESSOR) 100 mg tablet Take 25 mg by mouth in the morning and 25 mg before bedtime. 06/04/2025 ActiveStart: 12-28-2023 End: 71-57-8516xzgn 0.5 tablet by mouth in the morningmetoprolol tartrate (Lopressor) 100 MG tablet Indications: Essential hypertension Take 0.5 tablets ( 50 mg) by mouth in the morning and 0.5 tablets (50 mg) before bedtime. 90 tablet 06/20/2025 12/17/2025 ActiveStart: 28-48-2580yded 1 tablet by mouth twice daily metoprolol 50 mg ER Tab 50 mg = 1 tab(s), Oral, BID, Refills(s) 0 Start Date: 02/11/20 Status: OrderedMulti Vitamin+ (5 sources)Start: 94-06-7253Qyzej Vitamin+ Refill(s) 0 Start Date: 02/11/20 Status: Orderednabumetone 750 mg oral tablet (1 source)Nonsteroidal Anti-inflammatory DrugStart: 07-02-2025 End: 88-24-8779ztfc 1 tablet by mouth in the morningnabumetone (Relafen) 750 MG tablet Indications: Primary osteoarthritis involving multiple joints Take 1 tablet (750 mg) by mouth in the morning and 1 tablet (750 mg) before bedtime. 180 tablet 07/02/2025 09/30/2025 ActiveNaproxen (17 sources)Nonsteroidal Anti-inflammatory DrugStart: 10-90-9158gsbaagpt Oral, BID, Refills(s) 0 Start Date: 02/11/20 Status: Orderedtake 1 tablet by mouth twice daily as needed for painnaproxen (Naprosyn) 250 MG tablet Take 250 mg by mouth 2 (two) times a day as needed for mild pain ActivepredniSONE 10 mg oral tablet (3 sources)Start: 06-17-1729neuurlKUON (DELTASONE) 10 mg tablet Indications: Inflammatory polyarthritis (CMS-HCC) 4 tab daily 1week,then 3 tab daily 1 week,then 2 tab daily 1 week,then 1.5 tab daily 70 tablet 1 08/21/2025 Active Start: 08-21-2025 End: 15-24-3564jrpo 1 tablet by mouth in the morning, then take 4 tablets by mouth once daily, then take 3 tabletsby mouth once daily, then take 2 tablets by mouth once daily, then take 1.5 tablets by mouth once dailypredniSONE (DELTASONE) 10 mg tablet Indications: Inflammatory polyarthritis (CMS-HCC) Take 1 tablet(10 mg total) by mouth in the morning. 4 tab daily 1 week,then 3 tab daily 1 week,then 2 tab daily 1 week,then 1.5 tab daily. 70 tablet 1 08/21/2025 08/21/2025 DiscontinuedStart: 07-11-2025 End: 80-87-4858lzeqndNOCT (Deltasone) 10 MG tablet Indications: Primary osteoarthritis involving multiple joints Every 2 day tapering dose; 5,5,4,4,3,3,2,2,1,1,0.5,0.5 31 tablet 07/11/2025 08/12/2025 Discontinued (T herapy completed)rosuvastatin calcium 5 mg oral tablet (4 sources)HMG-CoA Reductase InhibitorStart: 12-28-2023 End: 54-02-9283orbn 1 tablet by mouth once dailyrosuvastatin (Crestor) 5 MG tablet Indications: Mixed hyperlipidemia (CMS/HCC) Take 1 tablet (5 mg)by mouth Daily 90 tablet 1 12/28/2023 06/26/2024 Discontinued (Side effects)Start: 81-19-8713jfmaaktlfkxp 5 mg Tab Refills(s) 0 Start Date: 08/02/23 Status: Ordered sildenafil 100 mg oral tablet (16 sources)Phosphodiesterase 5 InhibitorStart: 62-30-5077mowjvtepsj (Viagra) 100 MG tablet Take 100 mg by mouth if needed. 07/22/2022 Activetadalafil 20 mg oral tablet (2 sources)Phosphodiesterase 5 InhibitorStart: 26-06-9263Nymhng 20 mg Tab 20 mg = 1 tab(s), Oral, As Directed, # 30 tab(s), Refills(s) 3, [facility]: [facility] [id number], 177, cm, 03/30/22 8:55:00 EDT, Height/Length Dosing, 98, kg, 03/30/22 8:55:00 EDT,Weight Dosing Start Date: 03/30/22 Status: OrderedStart: 24-28-1751Pkghqa 20 mg Tab 20 mg = 1 tab(s), Oral, As Directed, # 30 tab(s), Refills(s) 1, [facility]: [id number], 177.8, cm, 02/12/21 8:17:00 EDT, Height/Length Dosing, 99.1, kg, 02/12/21 8:17:00 EDT, Weight Dosing Start Date: 02/12/21 Status: OrderedtraMADol hydrochloride 50 mg oral tablet (1 source)Opioid AgonistStart: 08-15-2025 End: 79-61-3355jwif 1-2 tablets by mouth every eight hours for paintraMADol (Ultram) 50 MG tablet Indications: Generalized arthritis Take 1-2 tablets (50- 100 mg) by mouth every 8 (eight) hours if needed for moderate pain for up to 7 days 42 tablet 08/15/2025 08/22/2025 Active Problems Active Problems Problem ClassificationProblemDateDocumented DateEpisodic/ChronicCalculus of urinary tract (13 sources)Kidney stone; Translations: [Calculus of kidney]Onset: 03-05-2022 EpisodicChronic obstructive pulmonary disease and bronchiectasis (16 sources)Simple chronic bronchitis; Translations: [Simple chronic bronchitis] Onset: 983450-98-6553FcopvqyYbtvhibd mellitus with complications (20 sources)Peripheral neuropathy due to type 2 diabetes mellitus; Translations: [Type 2 diabetes mellitus withdiabetic polyneuropathy]Onset: 06-29-2023 17-87-2926VryfejuXqfwnqyq mellitus without complication (6 sources)Diabetes mellitus; Translations: [Type 2 diabetes mellitus without complications]Onset: 335061-37-6706HtpyferQbqkceff of white blood cells (1 source)Elevated white blood cell count, unspecified; Translations: [ELEVATED WHITE BLOOD CELL COUNT UNS]Onset: 30-39-4656VgzizthNcxjnbkpx of lipid metabolism (20 sources)Hyperlipidemia; Translations: [Hyperlipidemia, unspecified]Onset: 299442-48-7310IxksubaWfiizizjjc disorders (6 sources)Gastroesophageal reflux disease; Translations: [Gastro-esophageal reflux disease without esophagitis]Onset: 865487-96-0710OffiudiIjgsjpgvo hypertension (20 sources)Hypertensive disorder; Translations: [Essential (primary) hypertension]Onset: 824179-87-7977ZtmnnpzIarin valve disorders (5 sources)Heart fhuqxx18-25-5967SpcoxrdsXjjuivsswwd of prostate (11 sources)Benign prostatic hypertrophy with outflow obstruction; Translations: [Benign prostatic hyperplasia with lower urinary tract symptoms]Onset: 60-30-3109EeikolnEdqgkltegoti with complications and secondary hypertension (2 sources)Hypertensive renal disease; Translations: [Hypertensive chronic kidney disease with stage 1 throughstage 4 chronic kidney disease, or unspecified chronic kidney disease]37-01-5277VtmodstNazhjcbgcurzea (11 sources)Osteoarthritis; Translations: [Unspecified osteoarthritis, unspecified site]Onset: 423134-92-0580JbbkinvSeflg acquired deformities (14 sources)Equinus contracture of the ankle; Translations: [Contracture, right ankle]Onset: 244178-74-8035WcstjenCdxoq and ill-defined heart disease (14 sources)Diastolic dysfunction; Translations: [Other ill-defined heart diseases]Onset: 681866-80-1497RrkwayrHiwth and ill-defined heart disease (14 sources)Left ventricular hypertrophy; Translations: [Cardiomegaly]Onset: 892238-28-8078TlotzgcXwibd and ill-defined heart disease (14 sources)Right cardiac ventricular dilatation; Translations: [Cardiomegaly] Onset: 763186-43-7866PcfuhvjSdzli diseases of kidney and ureters (7 sources)Urinary tract obstruction; Translations: [Other obstructive and reflux uropathy]Onset: 24-80-8640YzpfgcbzDgtkt diseases of kidney and ureters (5 sources)Hydronephrosis co-occurrent and due to calculus of kidney and ureter 54-11-7630ZbtiqybaXljqq diseases of kidney and ureters (4 sources)Fdenqgjjdwbsza36-07-2648JfbrwmdmPfxrg male genital disorders (20 sources)Male erectile dysfunction, unspecified; Translations: [Erectile dysfunction]Onset: 24-32-0015ZeaywtdVwkmw male genital disorders (5 sources)Zjlbcmguw81-49-8750MjljmtkZlloi nervous system disorders (5 sources)Chronic pain syndrome; Translations: [Chronic pain syndrome]Onset: 069045-75-4463LhofolpSfeat non-traumatic joint disorders (2 sources)Joint pain; Translations: [Pain in unspecified joint]06-20-2025 EpisodicOther nutritional; endocrine; and metabolic disorders (18 sources)Obesity caused by energy imbalance; Translations: [Other obesity due to excess calories]Onset: 765110-18-2707XazpsplHnaqaifhlt arthritis and related disease (1 source)Inflammatory polyarthropathy; Translations: [Inflammatory polyarthropathy]40-17-7814VozjlrjPnwonwdjjhj; intervertebral disc disorders; other back problems (5 sources)Degeneration of lumbar intervertebral disc; Translations: [Degeneration of intervertebral disc of lumbar region without discogenic back pain or lower extremity pain]Onset: 752797-44-8375BcvtqjpUvhxeyzzw-ipsgrjt disorders (20 sources)Nicotine dependence; Translations: [Nicotine dependence, unspecified, uncomplicated]Onset: 03-08-2022 Resolved: 87-97-9353SsznxlcXshcvbqalwds (2 sources)Patient encounter suhrui41-52-1949 Past or Other Problems Problem ClassificationProblemDateDocumented DateEpisodic/ChronicAbdominal pain (3 sources)Unspecified abdominal pain; Translations: [UNSPECIFIED ABDOMINAL PAIN]Onset: 22-26-1572YswfkvgfUslezios foot deformities (20 sources)Acquired pes planus of left foot; Translations: [Flat foot [pes planus] (acquired), left foot]Onset: 131486-50-4771SczwrgnxV Codes: Adverse effects of medical drugs (18 sources)HMG COA reductase inhibitor adverse reaction; Translations: [Adverse effect of antihyperlipidemic and antiarteriosclerotic drugs, initial encounter] Onset: 567447-44-2523TsccyvrdVggfgcaiowwsh symptoms and ill-defined conditions (20 sources)Nocturia; Translations: [Nocturia]Onset: EpisodicMood disorders (14 sources)Mood disordersOnset: 01-19-2024 Resolved: 056411-35-6446Mfrovql (14 sources)Onychomycosis; Translations: [Tinea unguium]Onset: 06-29-2023 97-39-9701NgptpadvDrymi aftercare (1 source)penitentiary (current) use of oral hypoglycemic drugs; Translations: [SENIOR SOFTWARE QA ANALYST USE ORAL HYPOGLYCEMIC DX]Onset: 62-26-9585FezoheokBjsus aftercare (1 source)penitentiary (current) use of anticoagulants; Translations: [SENIOR SOFTWARE QA ANALYST CURRNT USE ANTICOAGULANTS]Onset: 20-76-1430GptcgrvuQkdsj aftercare (1 source)penitentiary (current) use of aspirin; Translations: [SENIOR SOFTWARE QA ANALYST CURRENT USE OF ASPIRIN]Onset: 11-68-6797AfmiiaqqKoxld aftercare (1 source)Other alf (current) drug therapy; Translations: [OTH NURSING HOME CURRENT DRUG THERAPY]Onset: 91-11-9308LdgqpxfbFdthd aftercare (18 sources)Polypharmacy ; Translations: [Other buttermaker (current) drug therapy]Onset: 746684-95-0861AblkshoiLrmwo connective tissue disease (13 sources)Myalgia caused by statin; Translations: [Myalgia, unspecified site] Onset: 703284-28-7559LhboekciScuav diseases of kidney and ureters (4 sources)Hydronephrosis with renal and ureteral calculous obstruction; Translations: [HYDRONPHROS RENL AND URETRL CALCUL OBST]Onset: 26-42-0150Ucukxmej Other diseases of kidney and ureters (1 source)Disorder of kidney and ureter, unspecified; Translations: [DISORDER KIDNEY AND URETER UNS]Onset: 29-15-2876VsmdsaulYbufk diseases of veins and lymphatics (14 sources)Peripheral venous insufficiency; Translations: [Venous insufficiency (chronic) (peripheral)]Onset: 492954-20-3262ChsikdctOljqx lower respiratory disease (14 sources)Restrictive lung disease; Translations: [Other disorders of lung] Onset: 299158-41-1091YzcobgprNqofh non-traumatic joint disorders (14 sources)Bunion; Translations: [Effusion, unspecified foot]Onset: 06-29-2023 47-11-6373OzwwvcqdFplud nutritional; endocrine; and metabolic disorders (14 sources)Cholesterol level - finding; Translations: [Lipoprotein deficiency] Onset: 06-29-2023 Resolved: 813975-15-8751CqqryiyAuykv nutritional; endocrine; and metabolic disorders (14 sources)Body mass index 25-29 - overweight; Translations: [Overweight]Onset: 06-29-2023 Resolved: 100395-78-8264ZkfsdltmExwfb screening for suspected conditions (not mental disorders or infectious disease) (16 sources)Encounter for screening for malignant neoplasm of prostate; Translations: [Screening for malignant neoplasm done]Onset: 49-26-7812Zdqhylgs Residual codes; unclassified (2 sources)Other specified personal risk factors, not elsewhere classified; Translations: [Other specified personal history presenting hazards to health] 52-99-4972WruxaibgXjdtbdfq codes; unclassified (14 sources)H/O: risk factor; Translations: [Personal history of other specified conditions]Onset: 06-29-2023 Resolved: 509728-17-7065Tsfwprxa Results Test NameValueInterpretationReference RangeFacilityANCA VASCULITIDESon 13-83-3123LSTWLPXGBTXYFQL ANTIBODY<1.0NormTosk DiagnosticsComment on above: Result Comment: Value Interpretation ----- <1.0 No Antibody Detected > or = 1.0 Antibody Detected Autoantibodies to myeloperoxidase (MPO) are commonly associated with the following small-vessel vasculitides: microscopic polyangiitis, polyarteritis nodosa, Churg-Fidencio syndrome, necrotizing and crescentic glomerulonephritis and occasionally granulomatosis with polyangiitis (GPA, Janak's). The perinuclear IFA pattern, (p-ANCA) is based largely on autoantibody to myeloperoxidase which serves as the primary antigen. These autoantibodies are present in active disease.Performed By: #### [id number] #### [facility] [phone] Powerhouse Laborer: Myra Negrete #### [phone], [phone] #### [facility] [address], [address] [place] [phone] Powerhouse Laborer: Ezekiel Andrade MDPROTEINASE-3 ANTIBODY<1.0NormTosk DiagnosticsComment on above:Result Comment: Value Interpretation ----- <1.0 No Antibody Detected > or = 1.0 Antibody Detected Autoantibodies to proteinase-3 (AZ-3) are accepted as characteristic for granulomatosis with polyangiitis (GPA, Janak's), and are detectable in 95% of the histologically proven cases. The cytoplasmic IFA pattern, (c-ANCA), is based largely on autoantibody to AZ-3 which serves as the primary antigen. These autoantibodies are present in active disease.Performed By: #### [id number] #### [facility] [address] [place] [phone] Powerhouse Laborer: Myra Negrete #### [phone], [phone] #### [facility] [address], [address] [place] [address] Powerhouse Laborer: Ezekiel Andrade MDB TYPE NATRIURETIC PEPTIDE (BNP)on 08-09-2025 Natriuretic peptide B (Bld) [Mass/Vol]36 pg/mLNormal<100Quest DiagnosticsComment on above:Result Comment: BNP levels increase with age in the general population with the highest values seen in individuals greater than 75 years of age. Reference: J. Am. Celestine. Cardiol. 2002; 40:976-982.Performed By: #### [id number] #### [facility] [address] [place] [phone] Powerhouse Laborer: Myra Negrete #### [phone], [phone] #### [facility] [address], [address] [place] [address] Powerhouse Laborer: Ezekiel Andrade MDCBC (INCLUDES DIFF/PLT)on 84-32-3233Mgwzjftdx (Bld) [#/Vol]0.07 10*3/uLNormal0-200Quest DiagnosticsComment on above:Performed By: #### [id number] #### [facility] [address] [place], [place] [phone] Powerhouse Laborer: Myra Negrete #### 496, 6650 #### [facility] [address] Powerhouse Laborer: Ezekiel Andrade MDBasophils/100 WBC (Bld)0.8 %NormalQuest DiagnosticsComment on above:Performed By: #### 70980 #### [facility] [address] [place] [address] Powerhouse Laborer: Myra Negrete #### 496, 8790 #### [facility] [place] [address], [address] [place] [address] Powerhouse Laborer: Ezekiel Andrade MDEosinophils (Bld) [#/Vol]0.191 10*3/uLNormal 15-500Quest DiagnosticsComment on above:Performed By: #### 30653 #### [facility] [address] [place] [address] Powerhouse Laborer: Myra Negrete #### 496, 7130 #### [facility] [place] [address], [address] [place] [address] Powerhouse Laborer: Ezekiel DUMONTosinophils/100 WBC (Bld)2.2 %NormalQuest DiagnosticsComment on above:Performed By: #### 57174 #### [facility] [address] Powerhouse Laborer: Myra Negrete #### 492, 1520 #### [facility] [place] [address], [address] [place] [address] Powerhouse Laborer: Ezekiel Andrade MDErythrocyte distribution width (RBC) [Ratio] 15.0 %Enduez13.0-15.0Quest DiagnosticsComment on above:Performed By: #### 35884 #### [facility] [address] [place] [address] Powerhouse Laborer: Myra Negrete #### 496, 6090 #### [facility] [place] [address] [address] , [address] [place] [address] Powerhouse Laborer: Ezekiel Andrade MDHematocrit (Bld) [Volume fraction]40.9 %Normal 38.5-50.0Quest DiagnosticsComment on above:Performed By: #### 71952 #### [facility] [address] [place] [address] Powerhouse Laborer: Myra Negrete #### 496, 7600 #### [facility] [place] [address] [address] , [address] [place] [address] Powerhouse Laborer: Ezekiel Andrade MDHemoglobin (Bld) [Mass/Vol]12.6 g/dLLow 13.2-17.1Quest DiagnosticsComment on above:Performed By: #### 41197 #### [facility] [address] [place] [address] Powerhouse Laborer: Myra Negrete #### 496, 3880 #### [facility] [place] [address] [address] , [address] [place] [address] Powerhouse Laborer: Ezekiel Andrade MDLymphocytes (Bld) [#/Vol]1.992 10*3/uLNormal 850-3900Quest DiagnosticsComment on above:Performed By: #### 58688 #### [facility] [address] Powerhouse Laborer: Myra Negrete #### 496, 6550 #### [facility] [address], [address] [place] [address] Powerhouse Laborer: Ezekiel Andrade MDLymphocytes/100 WBC (Bld)22.9 %NormalQuest DiagnosticsComment on above:Performed By: #### 80666 #### [facility] [address] Powerhouse Laborer: Myra Negrete #### 496, 3790 #### [facility] [place] [address] [address] , [address] [place] [address] Powerhouse Laborer: Ezekiel Andrade MDMCH (RBC) [Entitic mass]28.1 sqYgrxpw05.0-33.0 [facility] DiagnosticsComment on above:Performed By: #### 00933 #### [facility] [address] [place] [address] Powerhouse Laborer: Myra Negrete #### 496, 2980 #### [facility] [place] [address] [facility], [address] [place] [address] Powerhouse Laborer: Ezekiel Andrade MDMCHC (RBC) [Mass/Vol]30.8 g/dLLow32.0-36.0 [facility]osticsComment on above:Result Comment: For adults, a slight decrease in the calculated MCHC value (in the range of 30 to 32 g/dL) is most likely not clinically significant; however, it should be interpreted with caution in correlation with other red cell parameters and the patient's clinical condition.Performed By: #### 27726 #### [facility] [address] [place], [place] [phone] Powerhouse Laborer: Myra Negrete #### 126, 5740 #### [facility] [place] [address] Powerhouse Laborer: Ezekiel Andrade MDMCV (RBC) [Entitic vol]91.1 fZUhptyz73.0-100.0 [facility]osticsComment on above:Performed By: #### 71400 #### [facility] [address] [place], [place] [id number] Powerhouse Laborer: Myra Negrete #### 326, 0610 #### [facility] [place] [address] Powerhouse Laborer: Ezekiel Andrade MDMonocytes (Bld) [#/Vol]0.626 10*3/uLNormal 200-950Quest DiagnosticsComment on above:Performed By: #### 34317 #### [facility] [address] [place] [address] Powerhouse Laborer: Myra Negrete #### 494, 6490 #### [facility] [address], [address] [place] [address] Powerhouse Laborer: Ezekiel Andrade MDMonocytes/100 WBC (Bld)7.2 %NormalQuest DiagnosticsComment on above:Performed By: #### 03745 #### [facility] [address] [place] [address] Powerhouse Laborer: Myra Negrete #### 492, 1260 #### [facility] [address], [address] [place] [address] Powerhouse Laborer: Ezekiel Kleinutrophils (Bld) [#/Vol]5.82 10*3/uLNormal 1500-7800Quest DiagnosticsComment on above:Performed By: #### 97662 #### [facility] [address] [place] [address] Powerhouse Laborer: Myra Negrete #### 498, 9200 #### [facility] [address], [address] [place] [address] Powerhouse Laborer: Ezekiel Adameophilsterling/100 WBC (Bld)66.9 %NormalQuest DiagnosticsComment on above:Performed By: #### 57700 #### [facility] [address] [place] [address] Powerhouse Laborer: Myra Negrete #### 494, 5215 #### [facility] [address], [address] [place] [address] Powerhouse Laborer: Ezekiel GONZALESlateahmet mean volume (Bld) [Entitic vol]10.4 fLNormal7.5-12.5Quest DiagnosticsComment on above:Performed By: #### 78344 #### [facility] [address] [place] [address] Powerhouse Laborer: Myra Negrete #### 495, 5571 #### [facility] [address], [address] [place] [address] Powerhouse Laborer: Ezekiel Andrade MDPlatelets (Bld) [#/Vol]400 10*3/uLNormal 140-400Quest DiagnosticsComment on above:Performed By: #### 57096 #### [facility] [address] [place], [place] [phone] Powerhouse Laborer: Myra Negrete #### 496, 5097 #### [facility] [place] [address] [address] , [address] [place] [address] Powerhouse Laborer: Ezekiel Andrade [facility] [#/Vol]4.49 10*6/uLNormal4.20-5.80 [facility]osticsComment on above:Performed By: #### 93930 #### [facility] [address] [place] [address] Powerhouse Laborer: Myra Negrete #### 496, 0532 #### [facility] [place] [address] [address] , [address] [place] [address] Powerhouse Laborer: Ezekiel Andrade [facility] [#/Vol]8.7 10*3/uLNormal3.8-10.8 [facility]osticsComment on above:Performed By: #### 09767 #### [facility] [address] [place] [address] Powerhouse Laborer: Myra Negrete #### 496, 1971 #### [facility] [place] [address] [address] , [address] [place] [address] Powerhouse Laborer: Ezekiel Andrade MDCENTROMERE B ANTIBODYon 22-91-0533BHPPDIPYBJ B ANTIBODY<1.0 NEGNormal<1.0 NEGQuest DiagnosticsComment on above:Performed By: #### 68804 #### [facility] [address] [place] [address] Powerhouse Laborer: Myra Negrete #### 496, 1795 #### [facility] [place] [address] [address] , [address] [place] [address] Powerhouse Laborer: Ezekiel Andrade MDCOMPREHENSIVE METABOLIC PANELon 08-09-2025 Albumin [Mass/Vol]4.3 g/dLNormal3.6-5.1Quest DiagnosticsComment on above: Performed By: #### 7448, 95884, 51577, 6399, 374, 76038, 61868, 66497, 94332 #### [facility] [place] [address] Powerhouse Laborer: Ezekiel Andrade MDAlbumin/Globulin [Mass ratio]1.7 {ratio}Normal 1.0-2.5Quest DiagnosticsComment on above:Performed By: #### 7448, 45030, 18334, 6399, 374, 70761, 99560, 40252, 26216 #### [facility] [place] [address] Powerhouse Laborer: Ezekiel Andrade MDALP [Catalytic activity/Vol]59 U/MOohdqs36-407 [facility]osticsComment on above:Performed By: #### 7448, 75041, 41419, 6399, 374, 83011, 40338, 06194, 95865 #### [facility] [place] [address] Powerhouse Laborer: Ezekiel Andrade MDALT [Catalytic activity/Vol]13 U/LNormal9-46 [facility]osticsComment on above:Performed By: #### 7448, 68350, 48910, 6399, 374, 26828, 29626, 86799, 52531 #### [facility] [place] [address] Powerhouse Laborer: Ezekiel Andrade MDAST [Catalytic activity/Vol]14 U/GVsdgcc33-98 [facility]osticsComment on above:Performed By: #### 7448, 84718, 46534, 6399, 374, 92519, 51671, 28108, 60594 #### [facility] [place] [address] Powerhouse Laborer: Ezekiel Andrade MDBilirubin [Mass/Vol]0.3 mg/dLNormal0.2-1.2 [facility]osticsComment on above:Performed By: #### 7448, 91044, 54978, 6399, 374, 81977, 77228, 82171, 03827 #### [facility] [place] [address] Powerhouse Laborer: Ezekiel Andrade MDCalcium [Mass/Vol]9.7 mg/dLNormal8.6-10.3Quest DiagnosticsComment on above:Performed By: #### 7448, 51155, 51200, 6399, 374, 24897, 57695, 70962, 97655 #### [facility] [place] [address] Powerhouse Laborer: Ezekiel Andrade MDChloride [Moles/Vol]101 mmol/ILhcfas28-038 [facility]osticsComment on above:Performed By: #### 7448, 74339, 13362, 6399, 374, 85625, 30688, 75098, 37325 #### [facility] [place] [address] Powerhouse Laborer: Ezekiel Andrade MDCO2 [Moles/Vol]24 mmol/UPwkvmy76-59Ecpbf DiagnosticsComment on above:Performed By: #### 7448, 68129, 26543, 6399, 374, 23267, 46472, 65255, 13195 #### [facility] [place] [address] Powerhouse Laborer: Ezekiel Andrade MDCreatinine [Mass/Vol]0.65 mg/dLLow0.70-1.35 [facility]osticsComment on above:Performed By: #### 7448, 52726, 75139, 6399, 374, 74176, 89893, 80650, 90530 #### [facility] [place] [address] Powerhouse Laborer: Ezekiel Andrade MDGFR/1.73 sq M.predicted among non-blacks MDRD (S/P/Bld) [Vol rate/Area]104 mL/min/{1.73_m2}Normal> OR = 60[facility] Comment on above:Performed By: #### 7448, 89159, 92863, 6399, 374, 13930, 13302, 44286, 97683 #### [facility] [place] [address] Powerhouse Laborer: Ezekiel Andrade MDGlobulin (S) [Mass/Vol]2.5 g/dLNormal1.9-3.7 [facility]osticsComment on above:Performed By: #### 7448, 77639, 83953, 6399, 374, 36893, 95295, 95925, 00916 #### [facility] [place] [address] Powerhouse Laborer: Ezekiel Andrade MDGlucose [Mass/Vol]84 mg/iEOsswse83-80Slmla DiagnosticsComment on above:Result Comment: Fasting reference intervalPerformed By: #### 7448, 44216, 75858, 6399, 374, 35044, 90651, 97057, 67342 #### [facility] [place] [address] Powerhouse Laborer: Ezekiel Andrade MDPotassium [Moles/Vol]4.3 mmol/LNormal3.5-5.3 [facility]osticsComment on above:Performed By: #### 7448, 20810, 86525, 6399, 374, 63265, 81756, 46470, 28785 #### [facility] [place] [address] Powerhouse Laborer: Ezekiel Andrade MDProtein [Mass/Vol]6.8 g/dLNormal6.1-8.1[facility] DiagnosticsComment on above:Performed By: #### 7448, 18001, 68257, 6399, 374, 35349, 18463, 49373, 91569 #### [facility] [place] [address] Powerhouse Laborer: Ezekiel Andrade MDSodium [Moles/Vol]141 mmol/OIvrbyb675-744Hpbnm DiagnosticsComment on above:Performed By: #### 7448, 80065, 34076, 6399, 374, 74072, 26480, 43015, 01477 #### [facility] [place] [address] Powerhouse Laborer: Ezekiel Andrade MDUrea nitrogen [Mass/Vol]14 mg/dLNormal7-25 [facility]osticsComment on above:Performed By: #### 7448, 05317, 71690, 6399, 374, 08145, 75632, 81816, 33064 #### [facility] [address], [address] [place] [address] Powerhouse Laborer: Ezekiel Andrade MDUrea nitrogen/Creatinine [Mass ratio]22 mg/mg Normal6-22Quest DiagnosticsComment on above:Performed By: #### 7448, 22921, 46023, 6399, 374, 09332, 24968, 65063, 63380 #### [facility] [address], [address] [place] [address] Powerhouse Laborer: Ezekiel Andrade MDCREATINE KINASE, TOTALon 43-20-0224GICSNJTL KINASE, TOTAL63 U/HKpczhw16-148Bdxoh DiagnosticsComment on above:Performed By: #### 00266 #### [facility] [address] [place] [address] Powerhouse Laborer: Myra Negrete #### 496, 6590 #### [facility] [address], [address] [place] [address] Powerhouse Laborer: Ezekiel Andrade MDCYCLIC CITRULLINATED PEPTIDE (CCP) AB (IGG)on [id number] CITRULLINATED PEPTIDE (CCP) AB (IGG)<16Normal[facility] Comment on above:Result Comment: Reference Range Negative: <20 Weak Positive: 20-39 Moderate Positive: 40-59 Strong Positive: >59Performed By: #### 69316 #### [facility] [address] [place] [address] Powerhouse Laborer: Myra Negrete #### 496, 6036 #### [facility] [address], [address] [place] [address] Powerhouse Laborer: Ezekiel Andrade MDDNA (DS) ANTIBODYon 28-24-8936YMR (DS) ANTIBODY<1NormalQuest DiagnosticsComment on above:Result Comment: IU/mL Interpretation < or = 4 Negative 5-9 Indeterminate > or = 10 PositivePerformed By: #### 62124 #### [facility] [address] [place] [address] Powerhouse Laborer: Mrya Negrete #### 496, 1806 #### [facility] [address], [address] [place] [address] Powerhouse Laborer: Ezekiel Andrade MDSJOGREN'S ANTIBODY (SS-A)on 08-09-2025 SJOGREN'S ANTIBODY (SS-A)<1.0 NEGNormal<1.0 NEGQuest DiagnosticsComment on above:Performed By: #### 01361 #### [facility] [address] [place] [address] Powerhouse Laborer: Myra Negrete #### 573, 3023 #### [facility] [address], [address] [place] [address] Powerhouse Laborer: Ezekiel Andrade MDSM AND SM/SECURITY INTERN ANTIBODIESon 70-76-9316BH ANTIBODY<1.0 NEGNormal<1.0 NEGQuest DiagnosticsComment on above:Performed By: #### 54414 #### [facility] [address] [place] [address] Powerhouse Laborer: Myra Negrete #### 383, 9714 #### [facility] [place] [address], [address] [place] [address] Powerhouse Laborer: Ezekiel Andrade MDSM/SECURITY INTERN ANTIBODY<1.0 NEGNormal<1.0 NEGQuest DiagnosticsComment on above:Performed By: #### 99972 #### [facility] [address] [place] [address] Powerhouse Laborer: Myra Negrete #### 127, 1448 #### [facility] [place] [address] [address] , [address] [place] [address] Powerhouse Laborer: Ezekiel Andrade MDXR CHEST 2 VIEWSon [id number] CHEST 2 VIEWS Chest 2 views. HISTORY: Arthralgia. Elevated ESR. Chronic cough. FINDINGS: Osseous structures intact. Cardiopericardial silhouette normal. Pulmonary vasculature normal. Lungsclear. IMPRESSION: No acute cardiopulmonary disease. ELECTRONICALLY SIGNED BY: Jah JenkinsANA SCREEN, IFA, W/REFL TITER AND PATTERNon 85-93-7443CGT SCREEN, IFANegativeNormalNEGATIVEQuest DiagnosticsComment on above:Result Comment: ABA IFA is a first line screen [...] AC-0: Negative International Consensus on ABA Patterns (https://doi.org/10.1515/kikv-4196-4028) For additional information, please refer to http://education.Little Bird.Kinnek/faq/IRA868 (This link is being provided for informational/ educational purposes only.)Performed By: #### 249, 809, 4418, 905 #### [facility] [place] [address] Powerhouse Laborer: Ezekiel Andrade MDRHEUMATOID FACTORon 79-27-0567LRDVCCSFHC XSTAAU04 IU/mLNormal<14Quest DiagnosticsComment on above:Performed By: #### 249, 809, 4418, 905 #### [facility] [address], [address] [place] [address] Powerhouse Laborer: Ezekiel Andrade MDSED RATE BY MODIFIED WESTERGRENon 06-21-2025 SED RATE BY MODIFIED UXMNUOJXLK18 mm/hHigh< OR = 20Quest DiagnosticsComment on above:Performed By: #### 249, 809, 4418, 905 #### [facility] [address], [address] [place] [address] Powerhouse Laborer: Ezekiel Andrade MDURIC ACIDon 83-73-4418Ntkia [Mass/Vol]3.8 mg/dLLow4.0-8.0Quest DiagnosticsComment on above:Order Comment: MULTIPLE TESTING PRIORITIES; ROUTINE TESTING TO FOLLOW.Result Comment: Therapeutic target for gout patients: <6.0 mg/dLPerformed By: #### 249, 809, 4418, 905 #### [facility] [address], [address] [place], [place] [phone] Powerhouse Laborer: Ezekiel Andrade MDHEMOGLOBIN A1con [id number] (Bld) [Mass fraction]7.6 %High<5.7Quest DiagnosticsComment on above:Result Comment: For someone without known diabetes, a hemoglobin [...] hemoglobin A1c for diagnosis of diabetes for children.Performed By: #### 496 #### [facility] [address], [address] [place] [address] Powerhouse Laborer: Ezekiel Andrade MDLaboratory - Chemistry and Chemistry - challengeon [id number] DL <= 20 mg/L (U) [Mass/Vol]30 mg/dLNONC HealthcareAlbumin/Creatinine DL <= 1.0 mg/L (U) [Ratio]60[facility]OL[facility] Creatinine (U) [Mass/Vol]0.5 mg/dLNONC HealthcareNo Panel Informationon 74-19-8214Cssuqytjsbtywm and review of laboratory resultsAbnormLehigh Valley Hospital - Pocono NOMS HealthcareCOMPREHENSIVE METABOLIC PANELon 46-95-7883Wyhykxw [Mass/Vol]4.5 g/dLNormal3.6-5.1Quest DiagnosticsComment on above:Performed By: #### 70654 #### [facility] [address] Powerhouse Laborer: Myra Negrete #### 496, 0717 #### [facility] of [address], [address] [place] [address] Powerhouse Laborer: Ezekiel Andrade MDAlbumin/Globulin [Mass ratio]2.3 {ratio}Normal 1.0-2.5Quest DiagnosticsComment on above:Performed By: #### 50638 #### [facility] [address] [place] [address] Powerhouse Laborer: Myra Negrete #### 496, 9247 #### [facility] of [address], [address] [place] [address] Powerhouse Laborer: Ezekiel Andrade MDALP [Catalytic activity/Vol]57 U/FNaylfb09-907 [facility]osticsComment on above:Performed By: #### 80684 #### [facility] [address] Powerhouse Laborer: Myra Negrete #### 490, 4324 #### [facility] of [address], [address] [place] [address] Powerhouse Laborer: Ezekiel Andrade MDALT [Catalytic activity/Vol]20 U/LNormal9-46 [facility]osticsComment on above:Performed By: #### 76969 #### [facility] [address] [place], [place] [address] Powerhouse Laborer: Myra Negrete #### 496, 7256 #### [facility] of [address] , [address] [place] [address] Powerhouse Laborer: Ezekiel Andrade MDAST [Catalytic activity/Vol]18 U/AWhkaey56-53 [facility]osticsComment on above:Performed By: #### 11965 #### [facility] [address] [place], [place] [address] Powerhouse Laborer: Myra Negrete #### 496, 3559 #### [facility] of [address], [address] [place] [address] Powerhouse Laborer: Ezekiel Andrade MDBilirubin [Mass/Vol]0.6 mg/dLNormal0.2-1.2 [facility]osticsComment on above:Performed By: #### 56224 #### [facility] [address] [place] [address] Powerhouse Laborer: Myra Negrete #### 496, 8942 #### [facility] [address], [address] [place] [address] Powerhouse Laborer: Ezekiel Andrade MDBUN/CREATININE RATIOSEE NOTE:Normal6-22Quest DiagnosticsComment on above:Result Comment: Not Reported: BUN and Creatinine are within reference range.Performed By: #### 01288 #### [facility] [address] [place] [address] Powerhouse Laborer: Myra Negrete #### 639, 1843 #### [facility] [address], [address] [place] [address] Powerhouse Laborer: Ezekiel Andrade MDCalcium [Mass/Vol]9.1 mg/dLNormal8.6-10.3Quest DiagnosticsComment on above:Performed By: #### 70810 #### [facility] [address] [place] [address] Powerhouse Laborer: Myra Negrete #### 498, 5618 #### [facility] [address], [address] [place] [address] Powerhouse Laborer: Ezekiel Andrade MDChloride [Moles/Vol]105 mmol/SFnqcuv91-291 [facility]osticsComment on above:Performed By: #### 32193 #### [facility] [address] [place] [address] Powerhouse Laborer: Myra Negrete #### 49, 7768 #### [facility] [address], [address] [place] [address] Powerhouse Laborer: Ezekiel Andrade MDCO2 [Moles/Vol]29 mmol/BXzkiwa66-19Hrjzk DiagnosticsComment on above:Performed By: #### 49920 #### [facility] [address] [place] [address] Powerhouse Laborer: Myra Negrete #### 496, 3436 #### [facility] [address], [address] [place] [address] Powerhouse Laborer: Ezekiel PERALESreatinine [Mass/Vol]0.82 mg/dLNormal0.70-1.35 [facility] DiagnosticsComment on above:Performed By: #### 44290 #### [facility] [address] [place] [address] Powerhouse Laborer: Myra Negrete #### 532, 1110 #### [facility] [address], [address] [place] [address] Powerhouse Laborer: Ezekiel Andrade MDGFR/1.73 sq M.predicted among non-blacks MDRD (S/P/Bld) [Vol rate/Area]97 mL/min/{1.73_m2}Normal> OR = 60[facility] Comment on above:Performed By: #### 95660 #### [facility] [address] [place] [address] Powerhouse Laborer: Myra Negrete #### 192, 5575 #### [facility] [address], [address] [place] [address] Powerhouse Laborer: Ezekiel Andrade MDGlobulin (S) [Mass/Vol]2.0 g/dLNormal1.9-3.7 [facility] DiagnosticsComment on above:Performed By: #### 49906 #### [facility] [address] [place] [address] Powerhouse Laborer: Myra Negrete #### 556, 9439 #### [facility] [address], [address] [place] [address] Powerhouse Laborer: Ezekiel Andrade MDGlucose [Mass/Vol]146 mg/kZCvfi08-83Svcka DiagnosticsComment on above:Result Comment: Fasting reference interval For someone without known diabetes, a glucose value >125 mg/dL indicates that they may have diabetes and this should be confirmed with a follow-up test.Performed By: #### 43308 #### [facility] [address] [place], [place] [phone] Powerhouse Laborer: Myra Negrete #### 496, 0350 #### [facility] [address], [address] [place] [address] Powerhouse Laborer: Ezekiel Andrade MDPotassium [Moles/Vol]4.2 mmol/LNormal3.5-5.3 [facility] DiagnosticsComment on above:Performed By: #### 35004 #### [facility] [address] [place] [address] Powerhouse Laborer: Myra Negrete #### 496, 2033 #### [facility] [address], [address] [place] [address] Powerhouse Laborer: Ezekiel Andrade MDProtein [Mass/Vol]6.5 g/dLNormal6.1-8.1Quest DiagnosticsComment on above:Performed By: #### 95146 #### [facility] [address] [place], [place] [phone] Powerhouse Laborer: Myra Negrete #### 496, 0755 #### [facility] [address], [address] [place] [address] Powerhouse Laborer: Ezekiel Andrade MDSodium [Moles/Vol]141 mmol/TNxrmoo076-529Gtbsu DiagnosticsComment on above:Performed By: #### 07679 #### [facility] [address] [place], [place] [phone] Powerhouse Laborer: Myra Negrete #### 496, 4512 #### [facility] [address], [address] [place] [address] Powerhouse Laborer: Ezekiel Andrade MDUrea nitrogen [Mass/Vol]22 mg/dLNormal7-25 [facility]osticsComment on above:Performed By: #### 62501 #### [facility] [address] [place] [address] Powerhouse Laborer: Myra Negrete #### 496, 1040 #### [facility] [address], [address] [place] [address] Powerhouse Laborer: Ezekiel Andrade MDHEMOGLOBIN A1con [id number] A1c7.0 % of total HgbHigh<5.7Quest DiagnosticsComment on above:Result Comment: For someone without known diabetes, a hemoglobin [...] hemoglobin A1c for diagnosis of diabetes for children.Performed By: #### [id number] #### [facility] [address] [place] [phone] Powerhouse Laborer: Myra Negrete #### 496, [phone] #### [facility] [address], [address] [place], [place] [id number] Powerhouse Laborer: Ezekiel Andrade MDLIPID PANEL, STANDARDon [id number] [Mass/Vol]201 mg/dLHigh<200Quest DiagnosticsComment on above:Order Comment: FASTING:YES FASTING: YESPerformed By: #### [id number] #### [facility] [address] [place] [phone] Powerhouse Laborer: Myra Negrete #### 496, [phone] #### [facility] [address], [address] [place], [place] [id number] Powerhouse Laborer: Ezekiel Andrade MDCholesterol in HDL [Mass/Vol]39 mg/dLLow> OR = 40Quest DiagnosticsComment on above:Order Comment: FASTING:YES FASTING: YESPerformed By: #### [id number] #### [facility] [place] [address] Powerhouse Laborer: Myra Negrete #### 496, [phone] #### [facility] [address], [address] [place], [place] [id number] Powerhouse Laborer: Ezekiel PERALESholesterol in LDL [Mass/Vol]113 mg/dLHigh Quest DiagnosticsComment on above:Order Comment: FASTING:YES FASTING: YESResult Comment: Reference range: <100 Desirable range <100 mg/dL for primary prevention; <70 mg/dL for patients with CHD or diabetic patients with > or = 2 CHD risk factors. LDL-C is now calculated using the Yordy calculation, which is a validated novel method providing better accuracy than the Friedewald equation in the estimation of LDL-C. Mariusz RODRIGUEZ et al. FRITZ. 2013;310(19): 4043-7143 (http://education.eBoox/faq/LTD154)Performed By: #### [id number] #### [facility] [address] [place] [phone] Powerhouse Laborer: Myra Negrete #### 496, [phone] #### [facility] [address], [address] [place], [place] [id number] Powerhouse Laborer: Ezekiel PERALESholestcatherine.total/Cholesterol in HDL [Mass ratio]5.2 {ratio}High<5.0Quest DiagnosticsComment on above:Order Comment: FASTING:YES FASTING: YESPerformed By: #### [id number] #### [facility] [address] [place] [address] Powerhouse Laborer: Myra Negrete #### 496, [phone] #### [facility] [address], [address] [place] [address] Powerhouse Laborer: Ezekiel SEBASTIAN HDL [id number] mg/dL (calc)High<130 Quest DiagnosticsComment on above:Order Comment: FASTING:YES FASTING: YESResult Comment: For patients with diabetes plus 1 major ASCVD risk factor, treating to a non-HDL-C goal of <100 mg/dL (LDL-C of <70 mg/dL) is considered a therapeutic option.Performed By: #### [id number] #### [facility] [address] [place] [address] Powerhouse Laborer: Myra Negrete #### 496, [phone] #### [facility] [address] [place] [address], [address] [address] Powerhouse Laborer: Ezekiel Andrade MDTriglyceride [Mass/Vol]342 mg/dLHigh<150Quest DiagnosticsComment on above:Order Comment: FASTING:YES FASTING: YESResult Comment: If a non-fasting specimen was collected, consider repeat triglyceride testing on a fasting specimen if clinically indicated. Dwight et al. J. of Clin. Lipidol. 2015;9:129-169.Performed By: #### [id number] #### [facility] [place] [address] Powerhouse Laborer: Myra Negrete #### 496, [phone] #### [facility] [address], [address] Powerhouse Laborer: Ezekiel Andrade MDMHPT PSA, DIAGNOSTICon [id number] SPECIFIC ANTIGEN DX0.71 ng/mLNINF - 4.00 ng/mLNOMS HealthcareCLINISYNCNOMS HealthcareXR KUB 1 VIEWon [id number] KUB 1 VIEWEXAMINATION: XR KUB 1 VIEW HISTORY: Kidney stone COMPARISON: XR KUB 03/10/2022 FINDINGS: KIDNEY/URETER - RIGHT: No visible renal or ureteral calcifications. KIDNEY/URETER - LEFT: No visible renal or ureteral calcifications. PELVIS: No visible ureteral stones. BOWEL: No abnormal dilation or deviation. BONES: No acute abnormality. OTHER: Negative. No abnormal gaseous collections. IMPRESSION: 1. No visible urinary tract calculi. Suspect passage of previously seen left ureteral stone. Electronically authenticated by: MICHAEL CARMEN Date: 2022-06-25 07:[address] [place] [address] GLUCOSEon [id number] [Mass/Vol]140 mg/dL Critically eyqr90-590LsuOhiohealth Riverside Methodist HospitalComment on above:Performed By: #### POCGLUC #### [facility] [address] [address] [address] Lambert SilvaXR KUB 1 VIEWon [id number] KUB 1 VIEWEXAMINATION: XR KUB 1 VIEW HISTORY: Urolithiasis COMPARISON: XR KUB 03/13/2021, CT abdomen pelvis 03/03/2022 FINDINGS: KIDNEY/URETER - RIGHT: No visible renal or ureteral calcifications. KIDNEY/URETER - LEFT: 6 mm stone projecting over expected course of left ureter at level of L3-4 vertebral disc space. PELVIS: Tiny pelvic calcifications favor atherosclerotic disease. BOWEL: No abnormal dilation or deviation. BONES: No acute abnormality. OTHER: Negative. No abnormal gaseous collections. IMPRESSION: 1. Proximal-mid left ureteral stone showing slight distal progression since 03/03/2022 CT abdomen pelvis study. Electronically authenticated by: MICHAEL CARMEN Date: 2022-03-10 08:54NormalThSelect [facility] [place] AUTO DIFFon [id number] #0.0 103/ulNormal0.0-0.1[facility] HospitalComment on above:Performed By: #### CBC #### [facility] [address] [place] [address] Dr. Lambert Driversophils/100 WBC (Bld)0.3 %Normal0.2-2.0[facility] Comment on above:Performed By: #### CBC #### [facility] [address] [address] [address] Lambert Felipe #0.2 103/ulNormal0.0-0.7The [facility] HospitalComment on above: Performed By: #### CBC #### [facility] [address] [address] [address] Lambert Patinoosinophils/100 WBC (Bld)1.3 %Normal0.9-7.0[facility] Comment on above:Performed By: #### CBC #### [facility] [address] [place] [address] Dr. Lambert Patinorythrocyte distribution width (RBC) [Ratio]13.1 %Oiwttt72.0-15.0 [facility] HospitalComment on above:Performed By: #### CBC #### [facility] [address] [place] [address] Dr. Lambert SilvaHematocrit (Bld) [Volume fraction]38.6 %Critically low42.0-54.0 [facility] HospitalComment on above:Performed By: #### CBC #### [facility] [address] [place] [address] Dr. Lambert SilvaHemoglobin (Bld) [Mass/Vol]12.2 g/dLCritically low14.0-18.0The [facility] HospitalComment on above:Performed By: #### CBC #### [facility] [address] [place] [address] Dr. Lambert Merino #0.04 10e3/ulCritically high0.00-0.03[facility] Comment on above:Performed By: #### CBC #### [facility] [address] [place] [address] Dr. Lambert eMrino %0.4 %Normal0.0-0.5ThUC West Chester HospitalComment on above: Performed By: #### CBC #### [facility] [address] [place] [address] Dr. Lambert Alvarez #0.9 103/ulCritically low1.2-3.8ThUC [facility] Comment on above:Performed By: #### CBC #### [facility] [address] [place] [address] Dr. Lambert Granadosmphocytes/100 WBC (Bld)8.2 %Critically low20.5-60.0[facility] HospitalComment on above:Performed By: #### CBC #### [facility] [address] [place] [address] Dr. Lambert VogelUAL DIFF REQNONormalThe [facility] HospitalComment on above: Performed By: #### CBC #### [facility] [address] [place] [address] Dr. Lambert Barker (RBC) [Entitic mass]31.9 tzDxdrrg79.9-34.0The [facility] HospitalComment on above:Performed By: #### CBC #### [facility] [address] [place] [address] Dr. Lambert Stringer (RBC) [Mass/Vol]31.6 g/hBSzroou06.9-35.2The [facility] HospitalComment on above:Performed By: #### CBC #### [facility] [address] [place] [address] Dr. Lambert StringerV (RBC) [Entitic vol]100.8 fLCritically high80.0-94.0The [facility] HospitalComment on above:Performed By: #### CBC #### [facility] [address] [place] [address] Dr. Lambert Wilhelm #0.8 103/ulNormal0.3-0.8The [facility] HospitalComment on above:Performed By: #### CBC #### [facility] [address] [place] [address] Dr. Lambert Faganocytes/100 WBC (Bld)7.3 %Normal1.7-12.0The [facility] Comment on above:Performed By: #### CBC #### [facility] [address] [place] [address] Dr. Lambert Yang #9.3 103/ulCritically high1.4-6.5The [facility] Comment on above:Performed By: #### CBC #### [facility] [address] [place] [address] Dr. Lambert Huffutrophils/100 WBC (Bld)82.5 %Critically high43.0-75.0The [facility] HospitalComment on above:Performed By: #### CBC #### [facility] [address] [place] [address] Dr. Lambert Munsonlet mean volume (Bld) [Entitic vol]10.5 fLNormal9.5-13.5The [facility] HospitalComment on above:Performed By: #### CBC #### [facility] [address] [address] [address] Lambert SilvaPLT186 103/dcFzbfky902-047Rgf [facility] HospitalComment on above: Performed By: #### CBC #### [facility] [address] [place] [address] Dr. Lambert SilvaRBC3.83 106/ulCritically low4.70-6.10The [facility] HospitalComment on above:Performed By: #### CBC #### [facility] [address] [address] [address] Lambert SilvaWBC11.3 103/ulCritically high4.0-11.0The [facility] HospitalComment on above:Performed By: #### CBC #### [facility] [address] [place] [address] Dr. Lambert SilvaPROF CHEM 8 (BAS METB)on 35-78-1396Epzkj gap [Moles/Vol]11.0 mmol/LNormalThe [facility] HospitalComment on above:Performed By: #### BMP #### [facility] [address] [place] [address] Dr. Lambert SilvaCalcium [Mass/Vol]8.4 mg/dLCritically low8.5-10.1The [facility] HospitalComment on above:Performed By: #### BMP #### [facility] [address] [place] [address] Dr. Lambert SilvaChloride [Moles/Vol]99 mmol/LUimqmm65-898Mkp [facility] Comment on above:Performed By: #### BMP #### [facility] [address] [place] [address] Dr. Lambert SilvaCO2 [Moles/Vol]32.2 mmol/LCritically high21.0-32.0The [facility] HospitalComment on above:Performed By: #### BMP #### [facility] [address] [place] [address] Dr. Lambert SilvaCreatinine [Mass/Vol]1.57 mg/dLCritically high0.70-1.30The [facility] HospitalComment on above:Performed By: #### BMP #### [facility] [address] [address] [address] Verdin ChangEGFR-AF SKXBJGDX11 mL/min/1.71b8Mpyhylqixb low>=60The [facility] HospitalComment on above:Performed By: #### BMP #### [facility] [address] [address] [address] Verdin ChangEGFR-NON AF DBARWUAR38 mL/min/1.09h5Yiljminfbz low>=60The [facility] HospitalComment on above:Performed By: #### BMP #### [facility] [address] [address] [address] Lambert SilvaGlucose [Mass/Vol]160 mg/dLCritically sgsx68-386Odk [facility] on above:Performed By: #### BMP #### [facility] [address] [address] [address] Lambert SilvaPotassium [Moles/Vol]4.2 mmol/LNormal3.5-5.1The [facility] Comment on above:Performed By: #### BMP #### [facility] [address] [address] [address] Lambert SilvaSodium [Moles/Vol]138 mmol/LFunjtr226-927Oqr [facility] Comment on above:Performed By: #### BMP #### [facility] [address] [address] [address] Lambert SilvaUrea nitrogen [Mass/Vol]19.0 mg/dLCritically high7.0-18.0The [facility] Hospitalment on above:Performed By: #### BMP #### [facility] [address] [address] [address] Lambert SilvaUrea nitrogen/Creatinine [Mass ratio]12.1 mg/mgNormalThe [facility] HospitalComment on above:Performed By: #### BMP #### [facility] [address] [address] [address] Lambert SilvaPROTIMEon [id number] Coag (PPP) [Relative time]0.95 {INR} NormalThe [facility] HospitalComment on above:Performed By: #### PT, PTT #### [facility] [address] [place] [address] Dr. Lambert Dueñas [facility]ult[facility] HospitalComment on above:Result Comment: DESIRED INR: 2.0 - 3.0 CONDITIONS NOT LISTED BELOW 2.5 - 3.5 FOR PROSTHETIC HEART VALVE REPLACEMENT 2.5 - 3.5 RECURRENT THROMBOSIS Performed By: #### PT, PTT #### [facility] [address] [place] [address] Dr. Lambert Carmona Coag (PPP) [Time]10.3 sNormal9.0-11.6ThUC [facility] Comment on above:Performed By: #### PT, PTT #### [facility] [address] [place] [address] Dr. Lambert Dewey [id number] Coag (Bld) [Time]32.1 qIdlplf93.3-36.2[facility] HospitalComment on above:Performed By: #### PT, PTT #### [facility] [address] [place] [address] Dr. Lambert Escobar AUTO DIFFon [id number] #0.1 103/ulNormal0.0-0.1[facility] HospitalComment on above:Performed By: #### CBC #### [facility] [address] [place] [address] Dr. Lambert SilvaBasophils/100 WBC (Bld)0.5 %Normal0.2-2.0[facility] Comment on above:Performed By: #### CBC #### [facility] [address] [place] [address] Dr. Lambert Felipe #0.1 103/ulNormal0.0-0.7ThUC [facility] HospitalComment on above: Performed By: #### CBC #### [facility] [address] [place] [address] Dr. Lambert Patinoosinophils/100 WBC (Bld)0.9 %Normal0.9-7.0[facility] Comment on above:Performed By: #### CBC #### [facility] [address] [place] [address] Dr. Lambert Patinorythrocyte distribution width (RBC) [Ratio]12.9 %Cgspjo27.0-15.0 The [facility] HospitalComment on above:Performed By: #### CBC #### [facility] [address] [place] [address] Dr. Lambert SilvaHematocrit (Bld) [Volume fraction]45.5 %Teciva96.0-54.0The [facility] HospitalComment on above:Performed By: #### CBC #### [facility] [address] [place] [address] Dr. Lambert SilvaHemoglobin (Bld) [Mass/Vol]14.9 g/wBAisxbn49.0-18.0The [facility] HospitalComment on above:Performed By: #### CBC #### [facility] [address] [place] [address] Dr. Lambert Merino #0.09 10e3/ulCritically high0.00-0.03The [facility] Comment on above:Performed By: #### CBC #### [facility] [address] [place] [address] Dr. Lambert Merino %0.8 %Critically high0.0-0.5The [facility] HospitalComment on above:Performed By: #### CBC #### [facility] [address] [place] [address] Dr. Lambert GutierrezH #1.4 103/ulNormal1.2-3.8The [facility] HospitalComment on above:Performed By: #### CBC #### [facility] [address] [place] [address] Dr. Lambert Granadosmphocytes/100 WBC (Bld)11.5 %Critically low20.5-60.0The [facility] HospitalComment on above:Performed By: #### CBC #### [facility] [address] [place] [address] Dr. Lambert VogelUAL DIFF REQNONormalThe [facility] HospitalComment on above: Performed By: #### CBC #### [facility] [address] [address] [address] Lambert Stringer (RBC) [Entitic mass]32.1 amRwluwv96.9-34.0The [facility] HospitalComment on above:Performed By: #### CBC #### [facility] [address] [place] [address] Dr. Lambert Stringer (RBC) [Mass/Vol]32.7 g/hYUwwzii02.9-35.2The [facility] HospitalComment on above:Performed By: #### CBC #### [facility] [address] [place] [address] Dr. Lambert Stringer (RBC) [Entitic vol]98.1 fLCritically high80.0-94.0The [facility] HospitalComment on above:Performed By: #### CBC #### [facility] [address] [place] [address] Dr. Lambert Wilhelm #0.6 103/ulNormal0.3-0.8The [facility] HospitalComment on above:Performed By: #### CBC #### [facility] [address] [place] [address] Dr. Labmert Faganocytes/100 WBC (Bld)4.9 %Normal1.7-12.0[facility] Comment on above:Performed By: #### CBC #### [facility] [address] [place] [address] Dr. Lambert Yang #9.7 103/ulCritically high1.4-6.5The [facility] Comment on above:Performed By: #### CBC #### [facility] [address] [place] [address] Dr. Lambert Huffutrophils/100 WBC (Bld)81.4 %Critically high43.0-75.0The [facility] HospitalComment on above:Performed By: #### CBC #### [facility] [address] [place] [address] Dr. Lambert Enciso mean volume (Bld) [Entitic vol]11.5 fLNormal9.5-13.5The [facility] HospitalComment on above:Performed By: #### CBC #### [facility] [address] [place] [address] Dr. Lambert SilvaPLT224 103/ttKeaxks381-467Hrq [facility] HospitalComment on above: Performed By: #### CBC #### [facility] [address] [place] [address] Dr. Lambert SilvaRBC4.64 106/ulCritically low4.70-6.10The [facility] HospitalComment on above:Performed By: #### CBC #### [facility] [address] [place] [address] Dr. Lambert SilvaWBC12.0 103/ulCritically high4.0-11.0The [facility] HospitalComment on above:Performed By: #### CBC #### [facility] [address] [place] [address] Dr. Lambert SilvaCT ABD/PELVIS WO CONon [id number] ABD/PELVIS WO CONEXAMINATION: CT ABD/PELVIS WO CON HISTORY: Personal history of urinary calculi ; acute left flank pain, nausea, vomiting COMPARISON: No relevant comparison available. TECHNIQUE: Axial, Coronal, and Sagittal images were created without IV contrast. Dose reduction techniques were achieved by using automated exposure control and/or adjustment of mA and/or kV according to patient size and/or use of iterative reconstruction technique. FINDINGS: LUNG BASES: No visible pulmonary or pleural disease. LIVER: No enlargement, atrophy, abnormal density, or significant focal lesion. BILIARY: Several 3-8mm stones within the noninflamed gallbladder. PANCREAS: No lesion, fluid collection, ductal dilatation, or atrophy. SPLEEN: No enlargement or focal lesion. ADRENALS: No mass or enlargement. KIDNEYS: Mild left hydronephrosis secondary to an 7 x 5 x 4 mm partially obstructing stone within proximal left ureter at the ureteropelvic junction. Unremarkable right kidney and ureter. BOWEL/MESENTERY: No visible mass, obstruction, or bowel wall thickening. AORTA/VASCULAR: No aneurysm or dissection. RETROPERITONEUM: No mass or adenopathy. LYMPH NODES: No adenopathy. URINARY BLADDER: No visible focal wall thickening, lesion, or calculus. PELVIC ORGANS: No visible mass. Pelvic organs appropriate for patient age. ABDOMINAL WALL: Small fat filled right inguinal hernia without stimulation. BONES: No bony lesion or fracture. Multilevel degenerative disc disease of lumbar spine. OTHER: Negative. IMPRESSION: 1. Mild left hydronephrosis secondary to a partially obstructing 7 x 5 x 4 mm stone at the ureteropelvic junction. 2. Cholelithiasis. Electronically authenticated by: MICHAEL CARMEN Date: 2022-03-03 11:56NoUniversity [facility] URINE PROFILEon [id number] Ql (U)NegativeNormal NEGATIVEOhiohealth Riverside Methodist HospitalComment on above:Performed By: #### CHEMA MORENOR ####[facility] [address] [id number]. Yilan ChangClarity (U)CLEARNormalCLEAROhiohealth Riverside Methodist HospitalComment on above: Performed By: ###CHEMA GIBSONR ####[facility] [address] [id number]. Yilan ChangColor (U)YELLOWNormalYELLOWOhiohealth Riverside Methodist HospitalComment on above:Performed By: #### CHEMA MORENOR ####[facility] [address] [address]Dr. Lambert ChangEISABELDA micrscopic examination will be performed if indicated.NormalOhiohealth Riverside Methodist HospitalComment on above:Performed By: ###CHEMA GIBSONR ####[facility] [address] [place], [place]Dr. Yilan ChangGlucose Ql (U) NegativeNormalNEGATIVEOhiohealth Riverside Methodist HospitalComment on above:Performed By: #### CHEMA MORENOR ####[facility] [address] [place], [place] [address]Yl. Yilan ChangHemoglobin Ql (U)TRACE-LYSEDAbnormalNEGATIVEOhiohealth Riverside Methodist HospitalComment on above:Performed By: #### CHEMA MORENOR ####[facility] [address] [address]Dr. Yilan ChangKetones Ql (U) NegativeNormalNEGATIVEThe [place] City HospitalComment on above:Performed By: #### CHEMA MORENOR ####[facility] Rrxporbkfy6744 [place], [place] [address]Wn. Danitzamarisabel RicardoLEUKOCYTESNegativeNormalNEGATIVEMemorial Health System [facility] HospitalComment on above:Performed By: #### CHEMA MORENOR ####[facility] Ldpihwqeqj7467 [place], [place]Dr. Yimarisabel ChangNitrite Ql (U)NegativeNormal NEGATIVEThe [place] HospitalComment on above:Performed By: #### BRENDON MORENO ####[facility] Narzzqevzt3085 [place], [place]Dr. Lambert RicardopH (U)6.5 [pH]Normal5-9The [place] [facility] HospitalComment on above: Performed By: #### BRENDON MORENO ####[facility] Divrtwgfll1275 [place], [place]Dr. Lambert RicardoSPEC GRAVITY1.474Ewanzt3.005-<=1.025The [place] [facility] HospitalComment on above:Performed By: #### BRENDON MORENO ####[facility] Weqryqcfow2738 [place], [place]Dr. Lambert SilvaUA PROTEINNegativeNormalNEGATIVE/ TRACEThe [place] HospitalComment on above: Performed By: #### BRENDON MORENO ####[facility] Juvrdakxbe0117 [place], [place]Dr. Lambert SilvaUR MICRO INDINDICATEDNormalThe [place] HospitalComment on above:Performed By: #### BRENDON MORENO ####[facility] [address] [place] [address]Dr. Lambert SilvaUrobilinogen Qn (U)0.2 {Melissa'U}/dLNormal0.2 - 1.0The [place] HospitalComment on above: Performed By: #### CHEMA MORENOR ####[facility] Mveofsjwuw0233 [place], [place]DrMinnie SilvaPROF 14(COMP METB)on 72-08-7428Mkunsmp [Mass/Vol]4.3 g/dLNormal3.4-5.0The [facility] HospitalComment on above:Performed By: #### CMP #### [facility] Laboratory [address] [place] [address] Dr. Lambert SilvaAlbumin/Globulin [Mass ratio]1.5 {ratio}NormalThe [facility] HospitalComment on above:Performed By: #### CMP #### [facility] [address] [place] [address] Dr. Lambert SnyderP [Catalytic activity/Vol]70 U/JCshaat08-141Cmj [facility] HospitalComment on above:Performed By: #### CMP #### [facility] [address] [place] [address] Dr. Lambert SnyderT [Catalytic activity/Vol]31 U/CYrbeim51-07Xiw [facility] HospitalComment on above:Performed By: #### CMP #### [facility] [address] [place] [address] Dr. Lambert Betancourt gap [Moles/Vol]10.4 mmol/LNormalThe [facility] Comment on above:Performed By: #### CMP #### [facility] [address] [place] [address] Dr. Lambert SilvaAST [Catalytic activity/Vol]16 U/CDjydkf98-81Lix [facility] HospitalComment on above:Performed By: #### CMP #### [facility] [address] [place] [address] Dr. Lambert SilvaBilirubin [Mass/Vol]0.4 mg/dLNormal0.2-1.0The [facility] Comment on above:Performed By: #### CMP #### [facility] [address] [place] [address] Dr. Lambert SilvaCalcium [Mass/Vol]9.3 mg/dLNormal8.5-10.1The [facility] Comment on above:Performed By: #### CMP #### [facility] [address] [address] [address] Lambert SilvaChloride [Moles/Vol]103 mmol/ZLbgqqe09-534Miz [facility] Comment on above:Performed By: #### CMP #### [facility] [address] [place] [address] Dr. Lambert SilvaCO2 [Moles/Vol]29.5 mmol/JYwsbgd47.0-32.0The [facility] Comment on above:Performed By: #### CMP #### [facility] [address] [place] [address] Dr. Lambert SilvaCreatinine [Mass/Vol]1.08 mg/dLNormal0.70-1.30The [facility] HospitalComment on above:Performed By: #### CMP #### [facility] [address] [place] [address] Dr. Verdin ChangEGFR-AF IVORIAN>60Normal>=60The [facility] HospitalComment on above:Performed By: #### CMP #### [facility] [address] [place] [address] Dr. Lambert PatinoGFR-NON AF IVORIAN>60Normal>=60The [facility] HospitalComment on above:Performed By: #### CMP #### [facility] [address] [place] [address] Dr. Lambert SilvaGlobulin (S) [Mass/Vol]2.8 g/dLNormalThe [facility] HospitalComment on above:Performed By: #### CMP #### [facility] [address] [place] [address] Dr. Lambert SilvaGlucose [Mass/Vol]131 mg/dLCritically hkci52-763Udg [facility] HospitalComment on above:Performed By: #### CMP #### [facility] [address] [place] [address] Dr. Lambert SilvaPotassium [Moles/Vol]3.9 mmol/LNormal3.5-5.1The [facility] Comment on above:Performed By: #### CMP #### [facility] [address] [place] [address] Dr. Lambert SilvaProtein [Mass/Vol]7.1 g/dLNormal6.1-8.2The [facility] Comment on above:Performed By: #### CMP #### [facility] [address] [address] [address] Lambert Ortegaum [Moles/Vol]139 mmol/QEafmzm607-077Nic [facility] Comment on above:Performed By: #### CMP #### [facility] [address] [address] [address] Lambert Toscano nitrogen [Mass/Vol]21.0 mg/dLCritically high7.0-18.0The [facility] HospitalComment on above:Performed By: #### CMP #### [facility] [address] [address] [address] Lambert Toscano nitrogen/Creatinine [Mass ratio]19.4 mg/mgNoParma Community General HospitalComment on above:Performed By: #### CMP #### [facility] [address] [address] [address] Lambert Rawls MICROSCOPIC ONLYon 85-57-9839IXHPSHPABRGV SEENNormalNONE SEENOhiohealth Riverside Methodist HospitalComment on above:Performed By: #### CHEMA MORENOR ####[facility] [address] [place] [address]Dr. Lambert SilvaBacteria identified Cx Nom (U)NOT INDICATEDNormBlanchard Valley Health System Blanchard Valley HospitalComment on above:Performed By: #### TIFFANIE ERUR ####[facility] [address] [place] [address]Dr. Lambert ChangCASTNONE SEEN NormalNONE SEENOhiohealth Riverside Methodist HospitalComment on above:Performed By: #### TIFFANIE ERUR ####[facility] [address]chrokxf[address] [place] [address]Dr. Lambert SilvaCrystals LM Nom (Urine sed)NONE SEENNormalNONE SEENOhiohealth Riverside Methodist HospitalComment on above:Performed By: #### TIFFANIE ERUR ####[facility] [address]absrul[address] [place] [address]Dr. Lambert ChangEpithelial cells LM Ql (Urine sed)RARENormalNONE SEEN /RAREOhiohealth Riverside Methodist HospitalComment on above:Performed By: #### CHEMA MORENOR ####[facility] Dgvvwsvrrl6317 [place], [place]Dr. Lambetr ChangMUCOUSNONE SEENNormalNONE SEENOhiohealth Riverside Methodist HospitalComment on above:Performed By: #### CHEMA MORENOR ####[facility] Ftwvdwqxsr1535 [place], [place]Dr. Lambert ChangRBC0-2 Normal0-2[facility] Methodist HospitalComment on above:Performed By: #### BRENDON MORENO ####[facility] Vrwysurdbm4677 [place], [place]Dr. Lambert ChangWBCNONE SEENNormalNONE [facility] CenterComment on above: Performed By: #### BRENDON MORENO ####[facility] Hilpjrvksj36[address] [place], [place]Dr. Lambert ChangComprehensive Metabolic Panelon 07-73-7485Ixmvkre [Mass/Vol]4.8 g/dLNormal3.6-5.1[facility] SpecialistComment on above:Performed By: #### CMP, LIPD #### [facility] [address] [place], [place] [id number]/Globulin [Mass ratio]2.5 {ratio}Normal1.0-2.5Nortbanner payson medical centern [facility] SpecialistComment on above:Performed By: #### CMP, LIPD #### [facility] [address], [place] [id number] [Catalytic activity/Vol]69 U/MWxzehp45-044Glnafjsx [place] [facility] SpecialistComment on above:Performed By: #### CMP, LIPD #### [facility] [address] [place], [place] [id number] [Catalytic activity/Vol]19 U/LNormal9-46Nortbanner payson medical centern [facility] SpecialistComment on above:Result Comment: 09/30/2021 Female reference range changed.Performed By: #### CMP, LIPD #### [facility] [address] [place], [place] [id number] gap [Moles/Vol]19 mmol/LTmdgku34-93Rwwntvia [place] [facility] SpecialistComment on above:Result Comment: Effective 11/05/2019 reference range changed.Performed By: #### CMP, LIPD #### [facility] [address] [place], [place] [id number] [Catalytic activity/Vol]18 U/BZchrzy37-36Lmemlegh [place] [facility] SpecialistComment on above:Performed By: #### CMP, LIPD #### [facility] [address] [place], [place] [id number] [Mass/Vol]0.45 mg/dLNormal0.30-1.20NoPremier Health [facility] SpecialistComment on above:Performed By: #### CMP, LIPD #### [facility] [address] [place], [place] [id number]/CREA20 RatioNormal6-22NoPremier Health Miami [facility] Hospital Specialist Comment on above:Performed By: #### CMP, LIPD #### [facility] [address] [place], [place] [id number] [Mass/Vol]9.4 mg/dLNormal8.6-10.2NortherWVUMedicine Harrison [facility] Hospital SpecialistComment on above:Performed By: #### CMP, LIPD #### [facility] [address] [place], [place] [id number] [Moles/Vol]103 mmol/RVxxnhz10-494Zqlipjnn [place] [facility] SpecialistComment on above:Performed By: #### CMP, LIPD #### [facility] [address] [place], [place] [id number] [Moles/Vol]27 mmol/JDploku64-26Szkifopl [place] [facility] SpecialistComment on above:Performed By: #### CMP, LIPD #### [facility] [address], [place] [id number] [Mass/Vol]0.9 mg/dLNormal0.7-1.4NoPremier Health Miami [facility] Hospital SpecialistComment on above:Performed By: #### CMP, LIPD #### [facility] [address] [place], [place] [id number] mL/min/1.21j9Wtelgn>60NoPremier Health Miami [facility] Hospital SpecialistComment on above:Performed By: #### CMP, LIPD #### [facility] [address] [place], [place] [id number] mL/min/1.25l7Kdgzjk>60NoPremier Health [facility] Hospital SpecialistComment on above:Performed By: #### CMP, LIPD #### [facility] [address], [place] [id number] (S) [Mass/Vol]1.9 g/dLNormal1.9-3.7NoPremier Health Miami [facility] Hospital SpecialistComment on above:Performed By: #### CMP, LIPD #### [facility] [address], [place] [id number] [Mass/Vol]137 mg/xXBvdz66-23Jnlxubib [place] [facility] SpecialistComment on above:Result Comment: For FASTING Glucose --- ADA reference ranges: Normal 65-99 mg/dl Prediabetes 100-125 Diabetes >/= 126Performed By: #### CMP, LIPD #### [facility] [address], [place] [id number] [Moles/Vol]3.9 mmol/LNormal3.5-5.5NoPremier Health Miami [facility] Hospital SpecialistComment on above:Performed By: #### CMP, LIPD #### [facility] [address], [place] [id number] [Mass/Vol]6.7 g/dLNormal6.1-8.1NortherWVUMedicine Harrison [facility] Hospital SpecialistComment on above:Performed By: #### CMP, LIPD #### [facility] [address], [place] [id number] [Moles/Vol]145 mmol/EIcjnuq907-456Gcorjjli [place] [facility] SpecialistComment on above:Performed By: #### CMP, LIPD #### [facility] [address], [place] [id number] nitrogen [Mass/Vol]17 mg/dLNormal7-25NortLakeHealth TriPoint Medical Center SpecialistComment on above:Performed By: #### CMP, LIPD #### [facility] [address], [place] [id number] A1Con 54-83-7093YOE332.24NormalNoPremier Health [facility] SpecialistComment on above:Performed By: #### A1C #### [facility] [address], [place] [id number] (Bld) [Mass fraction]6.2 %High4.0-6.0NoPremier Health Miami [facility] SpecialistComment on above:Performed By: #### A1C #### [facility] [address], [place] [id number] Panelon 24-38-8950Yywbjugtyig [Mass/Vol]211 mg/dLHigh 125-200NortLakeHealth TriPoint Medical Center SpecialistComment on above:Result Comment: Low risk < 200mg/dL Borderline risk 201-239 mg/dl High risk > or equal to 240Performed By: #### CMP, LIPD #### [facility] [address] [place], [place] [id number] in HDL [Mass/Vol]41 mg/dLNormal>40NoPremier Health [facility] SpecialistComment on above:Result Comment: High Cardiovascular Risk HDL <40 mg/dL Low Cardiovascular Risk HDL > or equal to 60 mg/dlPerformed By: #### CMP, LIPD #### [facility] [address] [place], [place] [id number] in LDL [Mass/Vol]119 mg/dLNormalNoPremier Health [facility] SpecialistComment on above:Result Comment: LDL ATP III CLASSIFICATION LDL less than 100 mg/dl Optimal LDL 100-129 mg/dl Near or above optimal LDL 130-159 Borderline high LDL 160-189 High LDL greater than 189 mg/dl Very HighPerformed By: #### CMP, LIPD #### [facility] [address], [place] [id number] in VLDL [Mass/Vol]51 mg/dLNormalNorthern [facility] SpecialistComment on above:Performed By: #### CMP, LIPD #### [facility] [address], [place] [id number].total/Cholesterol in HDL [Mass ratio]5 {ratio} NormalNorthern [facility] SpecialistComment on above:Performed By: #### CMP, LIPD #### [facility] [address], [place] [id number] [Mass/Vol]256 mg/vNMexn46-496Ejbdbiht [facility] SpecialistComment on above:Result Comment: TRIG ATPIII CLASSIFICATIONS TRIG less than 150 mg/dl Normal TRIG 150-199 mg/dl Borderline High TRIG 200-500 mg/dl High TRIG greather than 500 mg/dl Very HighPerformed By: #### CMP, LIPD #### [facility] [address], [place] [id number] Vital Signs Date TimeVital SignValuePerforming PjfeyfdgiAnosipmh37-00-2331 11:29-0400Body nlpnbu43 kgLayo Camejo MD Work Phone: [facility]10-22-2025 11:29-0400Diastolic blood qogkjqfj37 mm[Hg]Layo Camejo MD Work Phone: [facility]10-22-2025 11:29-0400 Respiratory rate18 /minLayo Camejo MD Work Phone: [facility]10-22-2025 11:29-0400Systolic blood hwfuytmn267 mm[Hg]Layo Camejo MD Work Phone: [facility]08-21-2025 08:48-0400Body jjtaoe226.3 Meg Jeffrey MD Work Phone: [facility] CenterDlynzugzzl19-71-2437 08:48-0400Body mass index (BMI) [Ratio]30.57 kg/b2JhrlkjAlex Jeffrey MD Work Phone: [facility] CenterXvbklbniyr78-49-3648 08:48-0400Body kplemt65.89 kgAlex Jeffrey MD Work Phone: [phone] [place], [place] [address]Hcfrinueds85-44-0740 08:48-0400Diastolic blood wlvahblz36 mm[Hg]Alex Jeffrey MD Work Phone: [phone]08-21-2025 08:48-0400Heart rate74 /min Alex Jeffrey MD Work Phone: [phone] [place], [place] [address]Likqbqaudv11-06-6078 08:48-6321FfJ4% (BldA) [Mass fraction]98 %Alex Jeffrey MD Work Phone: [phone] [place], [place] [address]Mxyssqbkde98-50-5667 08:48-0400Systolic blood qmuljxbn259 mm[Hg]Alex Jeffrey MD Work Phone: [phone] [place], [place] [address]Kgpslszkph39-07-5994 08:20-0500Body pzwyid422.3 cmEdahsan Jeffrey MD Work Phone: [phone] [place], [place] [address]Agbndxyshi36-24-0121 08:20-0500Body mass index (BMI) [Ratio]31.45 kg/s7QzbjlfAlex Jeffrey MD Work Phone: [phone] [place], [place] [address]Kxxiimntpc06-59-8993 08:20-0500Body fjlytu35.62 kgAlex Jeffrey MD Work Phone: [phone] [place], [place] [address]Crulaamfbn94-19-7729 08:20-0500Diastolic blood uplyjtnr53 mm[Hg]Alex Jeffrye MD Work Phone: [phone] [place], [place] [address]Tcldjkvxrm85-55-3036 08:20-0500Heart rate72 /min Alex Jeffrey MD Work Phone: [phone] [place], [place] [address]Yolemslscs39-03-0083 08:20-0007QvX1% (BldA) [Mass fraction]97 %Alex Jeffrey MD Work Phone: 1)[address] [place], [place] [address]02-20-2025 08:20-0500Systolic blood swuvnsxi787 mm[Hg]Alex Jeffrey MD Work Phone: [phone] [place], [place] [address]6910-01-2024 08:58-0400Blood Pressure LocationJENNKRISTINE SHAYLA [facility]10-01-2024 08:58-0400Diastolic blood evtuuwmp10 mm[Hg]FLY MCGUIRE [facility]10-01-2024 08:58-0400Heart rate64 /minJEDEBBIE SHAYLA [facility]10-01-2024 08:58-0400Systolic blood hptuwztu584 mm[Hg]FLY MCGUIRE [facility]08-27-2024 08:04-0400Body .3 cmErj Jeffrey MD Work Phone: [phone] [place], [place] [address]Uojqicvshk07-17-1059 08:04-0400Body mass index (BMI) [Ratio]31.01 kg/m8DilwhvAlex Jeffrey MD Work Phone: [phone] [place], [place] [address]Qptenaoauv77-58-2337 08:04-0400Body ciypfb30.25 kgAlex Jeffrey MD Work Phone: [phone]-[facility] CenterXrodhqlpow10-13-8163 08:04-0400Diastolic blood sxfjbbac23 mm[Hg]Alex Jeffrey MD Work Phone: [phone]-[facility] CenterTgdeanofsr97-16-0129 08:04-0400Heart rate70 /min Alex Jeffrey MD Work Phone: [phone] [address]Dmbovrhwma57-18-2754 08:04-8160QiR0% (BldA) [Mass fraction]98 %Alex Jeffrey MD Work Phone: [phone] [place] [address]Nqzqruuqwk95-15-0192 08:04-0400Systolic blood ijtgakgp928 mm[Hg]Alex Jeffrey MD Work Phone: [facility] CenterRxhbfhvusc43-46-2181 08:29-0400Blood Pressure LocationJENNIFER SHAYLA [facility]10-03-2023 08:29-0400Diastolic blood hrhqveon98 mm[Hg]FLY SHAYLA [facility]10-03-2023 08:29-0400Heart rate80 /minJENNIFER SHAYLA [facility]10-03-2023 08:29-0400Respiratory rate16 /minJENNIFER SHAYLA [facility]10-03-2023 08:29-0400Systolic blood nebivxiw278 mm[Hg]FLY SHAYLA [facility]09-22-2022 08:36-0400Blood Pressure LocationJENNIFER SHAYLA [facility]09-22-2022 08:36-0400Diastolic blood seidxxzv13 mm[Hg]FLY SHAYLA [facility]09-22-2022 08:36-0400Heart rate70 /minJENNIFER SHAYLA [facility]09-22-2022 08:36-0400Systolic blood abqujfcg144 mm[Hg]FLY SHAYLA [facility]05-31-2022 08:54-0400Blood Pressure LocationDon Torres Jr. [facility] 05-31-2022 08:54-0400Diastolic blood sepgcnjm62 mm[Hg] Don Torres Jr. [facility] 05-31-2022 08:54-0400Heart rate62 /Mary Torres Jr. [facility] 05-31-2022 08:54-0400Respiratory rate16 /Mary Torres Jr. [facility] 05-31-2022 08:54-0400Systolic blood opoposvn190 mm[Hg] Don Torres Jr. [facility] 05-09-2022 08:41-0400Blood Pressure LocationDon Torres Jr. [facility] 05-09-2022 08:41-0400Diastolic blood klzxaxlb26 mm[Hg] Don Torres Jr. [facility] 05-09-2022 08:41-0400Heart rate57 /Mary Torres Jr. [facility] 05-09-2022 08:41-0400Systolic blood apisjkuu337 mm[Hg] Don Torres Jr. [facility] Encounters Encounter DateEncounter TypeCare ProviderFacilityStart: 03-24-8803plzjvylvcp Cassie TannaFacility:EU BellevueStart: 08-21-2025 End: 97-40-3433Kpduzs outpatient new 45 minutesLayo Camejo MD Work Phone: [facility] Medical CenterComment on above:Inflammatory polyarthritis (CMS-HCC) (Primary Dx)Start: 08-12-2025 End: 35-22-7549Nvkgab-up Debi Jeffrey MD Work Phone: [address]Comment on above:CBC and differential, Comprehensive metabolic panel, B-type natriuretic peptide, Additional followed-up results: 9Start: 08-08-2025 End: 68-64-7959jdtjekcqgnHEMGYN J HEMEYERNot AvailableStart: 06-20-2025 End: 15-82-1515Ujukxc Jose M Jeffrey MD Work Phone: [facility] [address] [facility] MedicineStart: 06-20-2025 End: 52-78-5664Vzohmikelli Jeffrey MD Work Phone: [facility] [address] [facility] MedicineStart: 06-20-2025 End: 13-13-5652Alnnwr outpatient visit 25 minutesAlex Jeffrey MD Work Phone: [facility] [address] [facility] HospitalComment on above: Essential hypertension (Primary Dx); Mixed hyperlipidemia ; Myalgia due to statin; Type 2 diabetes mellitus with hyperglycemia, without long-term current use of insulin (HCC); Type 2 diabetes mellitus with other diabetic kidney complication (HCC); Microalbuminuria; Diabetic cataract, associated with type 2 diabetes mellitus (HCC); Non morbid obesity due to excess calories; Chronic pain syndrome; Arthralgia, unspecified jointStart: 06-20-2025 End: 80-69-0277vzpnyivcysFEDMMIGiovanna Nuñez AvailableStart: 06-01-2025 End: 43-12-5054FmmlmaZbpyiz J Hemeyer MD Work Phone: [facility] [address] [facility] HospitalComment on above: Essential hypertension ; Type 2 diabetes mellitus with other diabetic kidney complication (HCC); Mixed hyperlipidemiaStart: 01-21-2025 End: 76-05-4365gkkwxnysgtHOPRMM J HEMEYERNot AvailableStart: 12-20-2024 End: 86-84-1997Gtgsxs flowsAllen Jeffrey MD Work Phone: [facility] CI FM 100Start: 12-20-2024 End: 14-00-8662Bvftpu flowsAllen Jeffrey MD Work Phone: [facility] CI FM 100Start: 12-20-2024 End: 41-87-2521Uwpzgk outpatient visit 25 minutesEdahsan Jeffrey MD Work Phone: [facility] CI FM 100Comment on above:Essential hypertension (CMS/HCC) (Primary Dx); Hypertensive nephropathy (CMS/HCC); Microalbuminuria; Type 2 diabetes mellitus with other diabetic kidney complication (CMS/HCC); Diabetic cataract, associated with type 2 diabetes mellitus (CMS/HCC); Diabetic peripheral neuropathy associated with type 2 diabetes mellitus (CMS/HCC); Mixed hyperlipidemia (CMS/HCC); Polypharmacy; Cigarette smoker; Adverse reaction to statin medicationStart: 12-20-2024 End: 79-09-8155zyioqgizouENNQLN J HEMEYERNot AvailableStart: 11-28-2024 End: 78-55-5760FnznhjPqrvku J Hemeyer MD Work Phone: [facility] CI FM 100Comment on above:Essential hypertension (CMS/HCC)Start: 11-09-2024 End: 05-84-9777UoysvvDgbxrb J Hemeyer MD Work Phone: [facility] CI FM 100Comment on above:Essential hypertension (CMS/HCC)Start: 07-31-2024 End: 92-62-5623Vbmcdgc encounter procedureJENNKRISTINE MCGUIRE [facility] start: 07-24-2024 End: 73-98-8139Rfrjwkntd Result EncounterGeneric External Data ProviderNOMS External Department UnsolicitedStart: 07-24-2024 End: 31-41-5670Xbgmghynz Result EncounterGeneric External Data ProviderNOMS External Department UnsolicitedStart: 06-26-2024 End: 41-91-1610Snefze flowsheetAlex Jeffrey MD Work Phone: [facility] CI FM 100Start: 06-26-2024 End: 37-01-1194Lkaeri flowsheetAlex Jeffrey MD Work Phone: [facility] CI FM 100Start: 06-26-2024 End: 80-07-6343Fyyoti outpatient visit 25 minutesEdahsan Jeffrey MD Work Phone: [facility] CI FM 100Comment on above:Essential hypertension (CMS/HCC) (Primary Dx); Diabetic peripheral neuropathy associated with type 2 diabetes mellitus (CMS/HCC); Diabetic cataract, associated with type 2 diabetes mellitus (CMS/HCC); Type 2 diabetes mellitus with other diabetic kidney complication (CMS/HCC); Mixed hyperlipidemia (CMS/HCC); Adverse reaction to statin medication; Simple chronic bronchitis (CMS/HCC); At high risk for cardiovascular disease; Cigarette smoker; Polypharmacy; Non morbid obesity due to excess caloriesStart: 08-02-2023 End: 51-83-9144Hopjmmq encounter procedureFLY MCGUIRE [facility] start: 07-22-2022 End: 69-43-8754Slqiles encounter procedureFLY MCGUIRE [facility] Start: 06-24-2022 End: 96-17-3435bmirxbahykWH DONALD L SMITH JRFacility:P0Zlswz: 03-30-2022 End: 91-72-4444Gllwepy encounter Peggy Torres Jr. [facility] start: 25-81-9576Vpcfuavhg for preprocedural cardiovascular examinationDR DON TORRES JRPike Community Hospitaltart: 73-75-0205Cvewaorju for preprocedural laboratory examinationDR DON Madison BRIAN SILVA [facility] HospitalStart: 03-10-2022 End: 33-85-5399shybsqvronXX ALEX OWENSSVITLANAFacility:T8Ftkkm: 03-08-2022 End: 57-81-5632eyflxiqmqjAZ DON TORRES JRFacility:C4Ejkvc: 03-08-2022 End: 03-94-3338Tdnsiighb for preprocedural cardiovascular examinationDR DON TORRES Facility:X9Dafcc: 03-08-2022 End: 09-58-2329Jmmeoam encounter procedureDon Madison Brian Collado [facility] Start: 03-03-2022 End: 50-14-9328zkouetfqtjCI JAREN PAULFacility:H1 Procedures DateProcedureProcedure DetailPerforming ClinicianStart: 08-14-2025 End: 42-73-2731Etycfzxndzu examination of blood, cultureComment on above:Result Comment: CULTURE, BLOOD Micro Number: [id number] Test Status: Final Specimen Source: Blood, left arm Specimen Quality: Suboptimal Result: No growth after 5 days COMMENT: Inspection of blood culture bottles indicates that an inadequate volume of blood may have been collected for the detection of sepsis. TRANSPORT MEDIA: Aerobic and anaerobic bottle received.Performed By: #### [id number] #### [facility] [address] Powerhouse Laborer: Myra Negrete #### [id number], [id number] #### [facility] [address], [address] [place] [address] Powerhouse Laborer: Ezkeiel Fox Comment: CULTURE, BLOOD Micro Number: [id number] Test Status: Final Specimen Source: Blood Specimen Quality: Suboptimal Result: No growth after 5 days COMMENT: Inspection of blood culture bottles indicates that an inadequate volume of blood may have been collected for the detection of sepsis. TRANSPORT MEDIA: Aerobic and anaerobic bottle received.Performed By: #### [id number] #### [facility] [address] , [address] [place] [address] Powerhouse Laborer: Ezekiel Andrade MDStart: 63-47-8305Qyvexpftre other sourceEdahsan Jeffrey MD Work Phone: Start: 37-30-8354JWRX PSA, DIAGNOSTICGeneric External Data ProviderStart: 46-16-3597LedsastyrnkZczqcr Hemeyer MD Work Phone: Start: 51-30-8233Wpiyyftsjno removal of ureteric stent Don Torres JrMinnie start: 18-71-4095Ovawgwccrk pyelogramDon Torres Jr. comment on above:cysto, BL RG, ureteroscopic stone extraction, R stent removalcysto, BL RG, ureteroscopic stone extraction, R stent removalStart: 02-15-8202Fxacwuwjci pyelogramDon Torres Jr. comment on above:R stent placementR stent placement ColonoscopyDon Torres Jr. complete repair of rotator cuffDon Torres JrMinnie cystoscopic laser lithotripsy of ureteric calculus Don Torres JrMinnie comment on above:R stent placementR stent placement History of hernia repairDon Torres Jr. repair of ankleDon Torres Jr. TonsillectomyDon Torres Jr. Plan of Treatment DateCare ActivityDetailAuthorStart: 22-48-4789Swnefabwt for malignant neoplasm of colonNOMS HealthcareStart: 14-92-2567Wjurrtfm screeningDiabetes: Retinopathy ScreeningNOMS HealthcareStart: 90-62-3364Tbokgqzjk vaccinationInfluenza Vaccine (#1)[facility] HealthcareComment on above:Postponed from 07/01/2025 (Patient Refused) Start: 03-24-2026Medicare Annual Wellness (AWV)Medicare Annual Wellness (AWV) [facility] HealthcareStart: 96-23-5132Niqknfkcmqmo Vaccine: 65+ Years (1 of 2 - PCV) Pneumococcal Vaccine: 65+ Years (1 of 2 - PCV)[facility] CenterComment on above: Postponed from 1977 (Patient Refused)Start: 59-80-5078Pvsvj screening for proteinDiabetes: Urine Protein ScreeningLDS HOSPITAL HealthcareStart: 09-23-2025 End: 07-92-8884Dsmtyqx encounter aiqdxtqgo26/24/2025 9:45 AM EST Office Visit [facility] Rheumatology, A Department of [facility] [address] [address] Layo Camejo MD [address] [address] [facility] Rheumatology, A Department of [facility]: 09-19-2025 End: 74-02-2684Ugwpehe encounter pwitbbfvb83/20/2025 9:00 AM EST Office Visit [address] [address] Alex Jeffrey MD [address] [address] (Fax)[address] Streettart: 63-69-0422Kvbajqqnrp A1c measurementDiabetes: Hemoglobin T9NWSSTMissouri Baptist Medical Center Start: 08-21-2025 End: 27-78-7592P-reactive proteinC-reactive protein Lab Routine Inflammatory polyarthritis ([facility]-HCC) Expected: 08/21/2025 (Approximate), Expires: 08/21/2026 ProMedicSt. Josephs [facility] Health Services SystemComment on above:Expected: 08/21/2025 (Approximate), Expires: 08/21/2026Start: 08-21-2025 End: 69-99-9709DZM W Auto Differential panel - BloodCBC auto differential Lab Routine Inflammatory polyarthritis ([facility]-HCC) Expected: 08/21/2025 (Approximate), Expires: 08/21/2026[facility] SystemComment on above:Expected: 08/21/2025 (Approximate), Expires: 08/21/2026Start: 08-21-2025 End: 87-24-5317Yvjqgcuzniosj metabolic 2000 panel - Serum or PlasmaComprehensive metabolic panel Lab Routine Inflammatory polyarthritis ([facility]-HCC) Expected: 08/21/2025(Approximate), Expires: 08/21/2026ProN[facility] Health SystemComment on above:Expected: 08/21/2025 (Approximate), Expires: 08/21/2026Start: 08-21-2025 End: 20-19-7789Fwlojkiwyhg sedimentation rateErythrocyte Sedimentation Rate (ESR) Lab Routine Inflammatory polyarthritis ([facility]-HCC) Expected: 08/21/2025 (Approximate), Expires: 08/21/2026ProN[facility] Work Phone: comment on above:Expected: 08/21/2025 (Approximate), Expires: 08/21/2026Start: 08-21-2025 End: 77-84-7869[employer] Survey ViewsProCleveland Clinic Hillcrest Hospital SystemComment on above:Expected: 08/21/2025, Expires: 08/21/2026Start: 08-21-2025 End: 77-50-3243RB Chest PA and LateralSelect Medical [facility] SystemComment on above: Expected: 08/21/2025, Expires: 08/21/2026Start: 08-21-2025 End: 36-50-7579YO Knee - bilateral AP W standingSelect Medical [facility] SystemComment on above:Expected: 08/21/2025, Expires: 08/21/2026Start: 2025 End: 14-90-1796Zffvaomznj A1c/Hemoglobin.total in BloodHemoglobin A1c Lab Routine Type 2 diabetes mellitus with other diabetic kidney complication (HCC) Diabetic cataract, associated with type 2 diabetes mellitus (HCC) Expected: 2025 (Approximate),Expires: 06/20/2026[facility]OL[facility] Work Phone: Comment on above:Expected: 2025 (Approximate), Expires: 06/20/2026Start: 98-82-7230AVHQO-19 Vaccine ( season)COVID- 19 Vaccine ()[facility] SystemStart: 19-07-9271Wezstubqi vaccinationLDS HOSPITAL HealthcareStart: 06-20-2025 End: 19-04-6247Diimlblxyin sedimentation rateSedimentation rate, automated Lab Routine Arthralgia, unspecified joint Expected: 06/20/2025 (Approximate), Expires: 06/20/2026NONC HealthcareComment on above:Expected: 06/20/2025 (Approximate), Expires: 06/20/2026Start: 06-20-2025 End: 71-60-0759Rmulvrq Ab [Titer] in Serum by ImmunofluorescenceANA Lab Routine Arthralgia, unspecified joint Expected: 06/20/2025 (Approximate), Expires: 06/20/2026NONC HealthcareComment on above:Expected: 06/20/2025 (Approximate), Expires: 06/20/2026Start: 06-20-2025 End: 98-48-9228Henjrkygzi factor [Units/volume] in Serum or PlasmaRheumatoid factor Lab Routine Arthralgia, unspecified joint Expected: 06/20/2025 (Approximate), Expires: 06/20/2026[facility] HealthcareComment on above:Expected: 06/20/2025 (Approximate), Expires: 06/20/2026Start: 06-20-2025 End: 77-06-8366Varso [Mass/volume] in Serum or PlasmaUric acid Lab Routine Arthralgia, unspecified joint Expected: 06/20/2025 (Approximate), Expires: [facility] HealthcareComment on above:Expected: 06/20/2025 (Approximate), Expires: 06/20/2026Start: 06-20-2025 End: 52-04-6825Ugxmuzl encounter dluhajben59/21/2025 9:00 AM EDT Office Visit [facility] [address] [facility] [address] [place] [address] Alex Jeffrey MD 112 [facility] [address] [place] [address] Essential hypertension ; Mixed hyperlipidemia ; Myalgia due to statin; Adverse reaction to statin medication; Type 2 diabetes mellitus with other diabetic kidneycomplication (HCC); Diabetic cataract, associated with type 2 diabetes mellitus (HCC)[facility] 100 Family MedicineComment on above:Essential hypertension ; Mixed hyperlipidemia ; Myalgia due to statin; Adverse reaction to statin medication; Type 2 diabetes mellitus with other diabetic kidney complication (HCC); Diabetic cataract, associated with type 2 diabetes mellitus (HCC)Start: 06-18-2025 End: 08-16-4568Pkrtrnu encounter procedureNOMS BNS FMStart: 27-10-5030Ccawohjne vaccinationInfluenza Vaccine (#1)[facility] HealthcareComment on above:Postponed from 07/01/2024 (Patient Refused)Start: 85-54-8004Jzcwiejlyi A1c measurementDiabetes: Hemoglobin D7KJUOP HealthcareStart: 01-21-2025 End: 89-35-3778Osbfuzc encounter /24/2025 9:30 AM EDT Office Visit [facility] [address] [facility] [address] [place] [address] Alex Jeffrey MD 112 [facility] [address] [place] [address] [facility] 100Start: 03-21-2025Medicare Annual Wellness (AWV)Medicare Annual Wellness (AWV)[facility] HealthcareStart: 51-72-6136Vvaozracacja Vaccine: 65+ Years (1 of 2 - PCV)Pneumococcal Vaccine: 65+ Years (1 of 2 - PCV)[facility] HealthcareComment on above:Postponed from 1964 (Patient Refused)Start: 21-17-5440Ggoexbat screeningDiabetes: Retinopathy ScreeningNOMS HealthcareStart: 64-51-2714Ualto screening for protein Diabetes: Urine Protein ScreeningNOMS HealthcareStart: 12-20-2024 End: 66-59-8366Dzpsnys encounter procedureNOMS CI FM 100Comment on above: Essential hypertension (CMS/HCC); Microalbuminuria; Mixed hyperlipidemia (CMS/HCC); Type 2 diabetes mellitus with other diabetic kidney complication (CMS/HCC); Diabetic cataract, associated with type 2 diabetes mellitus ([facility]/HCC); Diabetic peripheral neuropathy associated with type 2 diabetes mellitus ([facility]); Polypharmacy; Cigarette smokerStart: 11-26-2024 End: 36-58-4297Uojyifpnykyvp metabolic 2000 panel - Serum or PlasmaComprehensive metabolic panel Lab Routine Essential hypertension ([facility]/HCC) Type 2 diabetes mellituswith other diabetic kidney complication ([facility]/HCC) Expected: 11/26/2024, Expires: 06/26/2025[facility] Healthcare Work Phone: Comment on above:Expected: 11/26/2024, Expires: 06/26/2025Start: 11-26-2024 End: 84-52-3194Tcztazhxsr A1c/Hemoglobin.total in BloodHemoglobin A1c Lab Routine Type 2 diabetes mellitus with other diabetic kidney complication ([facility]/HCC) Expected: 11/26/2024, Expires: 06/26/2025NONC HealthcareComment on above:Expected: 11/26/2024, Expires: 06/26/2025Start: 11-26-2024 End: 38-09-5885Eoztl 1996 panel - Serum or PlasmaLipid panel Lab Routine Mixed hyperlipidemia ([facility]) Expected: 11/26/2024, Expires: 06/26/2025[facility] HealthcareComment on above:Expected: 11/26/2024, Expires: 06/26/2025Start: 78-55-9945Pubhnlchgt A1c measurementDiabetes: Hemoglobin U6LVGARMiss[facility] Medical Center Start: 05-48-5749Wdfcjrbwk vaccinationInfluenza Vaccine (#1)[facility] Start: 86-15-8157Kset Risk ScreeningFall Risk ScreeningNorwalk Memorial Hospital Start: 22-03-5175Hhobx screening for proteinDiabetes: Urine Protein Screening [facility] CenterStart: 85-61-8832Qxtzmlxrftssds of varicella zoster vaccineZoster (Shingles) Vaccine (1 of 2)[facility] Centertart: 18-48-1394GOcN,Tdap and Td Vaccines (1 - Tdap)DTaP,Tdap and Td Vaccines (1 - Tdap)[facility] Centertart: 09-85-0081Wpwly BMI ScreeningAdult BMI ScreeningNovant Health Rowan Medical Centertart: 83-69-7309Htnoxwbmux ScreeningDepression ScreeningProCleveland Clinic Hillcrest Hospital SystemStart: 38-67-1187Maumfwa ScreeningTobacco ScreeningSelect [facility] System Start: 54-88-5161Irufrymim for malignant neoplasm of colonNOMS Healthcare End: 86-37-4897JTT AbCCP Ab Lab Routine Inflammatory polyarthritis (CMS-HCC) 1 Occurrences starting 08/21/2025 until 08/21/2026ProCleveland Clinic Hillcrest Hospital SystemComment on above:1 Occurrences starting 08/21/2025 until 08/21/2026 Immunizations Immunization DateImmunizationNotesCare EnbldypsAaovpdqu46-91-2805ROCS-QkP-1 (COVID-19) mRNA BNT-162b2 vaxJENNIFER SHAYLA [facility] [place] 049730-28-2021SARS-CoV-2 (COVID-19) mRNA BNT-162b2 vaxJENNIFER SHAYLA [facility] [place] 049730-01-2021influenza virus vaccine, unspecified formulationJEHU HU K[facility] SHAYLA [facility] [place] 049730-01-2021influenza, seasonal, injectableAlex Jeffrey MD Work Phone: NONC HealthcareNEGATED: Highlighted row has not occurred!60-23-7293XCEK-CoV-2 (COVID-19) Ad26 vaccine, Nelson Torres Jr. [facility] Payers DatePayer CategoryPayerPolicy ID2025Medicare (Managed Care)[employer] [id number] 2025Medicare HMOANTHEM MEDICARE Member Subscriber Plan / Payer (Effective 2024-Present) Name: Pamela Neal III Relation to Subscriber: Self Name: Pamela Neal III Payer ID: [id number] (NAIC) Group ID: [id number] Type: Not on file Address: [address] [place] [id number] 2025Medicare [id number] [id number] 2024Private Health Insurance [id number] [id number] [place] [id number] [id number] [id number] 2.16.840.1.554798.3.57[id number] 2.16.840.1.589652.3.57[id number] 2.16.840.1.178457.3.57[id number] 2.16.840.1.395840.3.57[id number] 2.16.840.1.025629.3.57[id number] 2.16.840.1.470534.3.57[id number] 2.16.840.1.675641.3.57[id number] 2.16.840.1.683592.3.579.2.727 Social History DateTypeDetailFacilityStart: 03-17-2021 End: 23-14-4635Gizcxba smoking statusLight tobacco smoker (finding)[facility] Start: 04-11-2019 End: 42-89-8252Iii Assigned At BirthMaleExec[facility] Start: 07-22-2022 End: 12-33-7527Uwqpbvt smoking statusHeavy tobacco smoker (finding)[facility]Tobacco smoking statusSmoker (finding)[facility]Start: 22-15-3792Bkiwkiq smoking statusNeverExecutive [facility]rology of [facility] HospitalyStart: 45-00-4875Vccxwft smoking status NHISOccasional tobacco smokerNOMS HealthcareHistory of tobacco useCigarette SmokerNOMS HealthcareStart: 44-83-1959Owhblle use and exposureSmokeless tobacco non-userNOMS Healthcare Start: 06-26-2024 End: 41-38-6359Aotyyqcvd beverage intakeEx-drinker (finding)[facility] Start: 04-11-2019 End: 52-60-9684Tvpmhll of Social functionNOMS HealthcareWithin the last year, have you been kicked, hit, slapped, or otherwise physically hurt by your partner or ex-partner?NoNOMS HealthcareAre you now , , , , never or living with a partner?DivorcedNOMS HealthcareHow often to you have a drink containing alcohol?Monthly or lessNOMS HealthcareHow many standard drinks containing alcohol do you have on a typical day?5 or 6NOMS HealthcareHow often do you have 6 or more drinks on 1 occasion?NeverNOMS HealthcareDo you feel stress - tense, restless, nervous, or anxious, or unable to sleep at night because yourmind is troubled all the time - these days [OSQ] Only a littleNOMS Healthcare(I/We) worried whether (my/our) food would run out before (I/we) got money to buy more.Never trueNOMS HealthcareStart: 07-05-2023 Lbgwecdrz37NPOO HealthcareStart: 34-95-4130Tfz assigned at birthNot on fileNOMS HealthcareHow many standard drinks containing alcohol do you have on a typical day?3 or 4N[facility]S HealthcareDo you feel stress - tense, restless, nervous, or anxious, or unable to sleep at night because yourmind is troubled all the time - these days [OSQ]Not at allNOMS HealthcareThe food that (I/we) bought just didn't last, and (I/we) didn't have money to get more.Sometimes trueNOMS HealthcareTobacco smoking status NHISTobacco smoking consumption unknown [facility]GarageSkins SystemStart: 29-16-7741DixWbuj (finding)[facility] Medical Equipment Procedure CodeEquipment CodeEquipment Original TextEquipment IdentifierDates Fasting BS daily. May also check a second time daily for symptoms.[id number]: 22-55-1506Zndxdfk BS daily. May also check a second time daily for symptoms. [id number]: 34-39-9840Fidwlsp BS daily. May also check a second time daily for symptoms. [facility] [id number]: 07-08-2025 Functional Status TslvSrxsuormfdBefflxDzodzxxy36-77-6757Rmcmgdi Health Questionnaire 2 item (PHQ- 2) [Reported][facility] CenterGpjxqpqlcc28-86-5869Fmajduoend StatusN/AExec[facility]10-03-2023Functional StatusN/AExec[facility]09-22-2022Functional StatusN/A [facility] Clinical Notes 03-08-2022 to 08-21-2025 Note Date & VhheFvuiApxkrecq19-27-0323 History of Present illness Narrative* Layo Camejo MD - 08/21/2025 12:00 PM EDT Images from the original note were not included. [address] [address] Date of Service: 08/21/2025 Subjective: Pamela Neal III is a 65 y.o. male [...] AST , PROT Imaging: Assessment and Plan: Pamela Neal III is a 65 y.o. male patient with: 1. Inflammatory polyarthritis ([facility]) - Erythrocyte Sedimentation Rate (ESR); Future - [...] over 1 month RTC 1 month Total qgqa-mt-yypq time was 35 minutes with more than [...] or corrected. Thank you for your understanding. [facility] Physicians Rheumatology Dr. Layo Camejo MD [address] [facility] [address] [place] [address] Office: [phone] documented in this encounterNorwalk Memorial Hospital10-22-2025 Miscellaneous Notes* Addendum Note - Layo Camejo MD - 08/21/2025 12:00 PM EDTAddended by: LAYO CAMEJO on: 08/21/2025 12:38 PM Modules accepted: Orders documented in this encounterNorwalk Memorial Hospital10-22-2025 Note* Addendum Note - Layo Camejo MD - 08/21/2025 12:00 PM EDTAddended by: LAYO CAMEJO on: 08/21/2025 12:38 PM Modules accepted: Orders [facility]10-16-2025 Telephone encounter Note* Telephone Encounter - Alex Jeffrey MD - 08/15/2025 10:46 AM EDT I reviewed with my medical assembly who spoke with Pamela. We were able to accelerate his visit withRheumatology to next . She noted that cristobal Cain is a stoic individual he was in tears on the phone over the pain. At this point we really need to help him with his pain and his PDMP is as expected. We will go ahead and give him some tramadol to get him through to rheumatology. [facility] is requiring prior authorization which was started. [facility] [id number] Miscellaneous Notes* Telephone Encounter - Alex Jeffrey MD - 08/15/2025 10:46 AM EDT I reviewed with my medical assembly who spoke with Pamela. We were able to accelerate his visit withRheumatology to next . She noted that will Pamela is a stoic individual he was in tears on the phone over the pain. At this point we really need to help him with his pain and his PDMP is as expected. We will go ahead and give him some tramadol to get him through to rheumatology. [facility] is requiring prior authorization which was started. [...] call nad let me know date so can help him accordingly * Telephone Encounter - Shelia Claros MA - 08/13/2025 2:44 PM EDT Copied from : [place], January, this is Pamela Neal. I did over there and they [...] if he got something sooner with Dr Camejo. No answer, VM left * Telephone Encounter - Alex Jeffrey MD - 08/12/2025 11:36 AM EDT January, [...] 08/12/2025 10:42 AM EDT Copied from : Hi. They said room at B, though, this is Pamela Neal. If rheumatology said that the appointment [...] you. Bye. I faxed the referral to anival office and gave him the number to call later. Can you look at the note about if you would be able to do something in the meantime. * Telephone Encounter - Shelia Claros MA - 08/12/2025 10:05 AM EDT I did talk to Pamela. Dr bergman office called him so he is going to call them back and see if they can get him in any sooner because his hands keeping getting worse. He soul hardly even dress himself over the weekend. If he cannot he is going to try and call Camejo office. He is asking if there is anything EH can due in the mean time to help with the inflammation and pain because nabeumtome is nothelping. * Telephone Encounter - Shelia Claros MA - 08/12/2025 10:05 AM EDT ----- Message from Alex Jeffrey MD sent at 08/12/2025 9:20 AM EDT ----- ----- Message ----- From: LETSGROOP Lab Results In Sent: 08/09/2025 5:13 PM EDT To: Alex Jeffrey MD * Telephone Encounter - Alex Jeffrey MD - 08/12/2025 9:16 AM EDT Notify Pamela that I did review the chest x-ray [...] EGD. He can either go see the [facility] or he can stay with [facility] GI group but Dr. Alvarez is no longer there. As I remember we offered him a referral to another machine adjuster helper, and he declined that because of the distance. documented in this encounterMissouri Baptist Medical CenterIyriftvncr90-95-1494 Telephone encounter Note* Telephone Encounter - Shelia ClarosNAIDA - 08/15/2025 10:39 AM EDT EH he got back with me today that they are going to see him next . Can you get him pain management meds to get him thru that? [facility] CenterGqwzknfkkg33-43-1528 Telephone encounter Note* Telephone Encounter - Shelia De La ONAIDA eduardo - 08/13/2025 3:17 PM EDT VM left for pt that I refaxed that referral and to call nad let me know date so EH can help him accordingly [facility] [id number] Telephone encounter Note* Telephone Encounter - Shelia Claros MA - 08/13/2025 2:44 PM EDT Copied from : Hi, January, this is Pamela Neal. I did over there and they told me that they would call me back when they got the referral. And they had not got it yet, so I have not heard anything from them so. All right, but. refaxed [facility] [id number] Telephone encounter Note* Telephone Encounter - Shelia Claros MA - 08/13/2025 2:26 PM EDT Attempted to call pt to see if he got something sooner with Dr Camejo. No answer, left [facility] [id number] Telephone encounter Note* Telephone Encounter - Alex Jeffrey MD - 08/12/2025 11:36 AM EDT January, [...] do that if we can avoid it. [facility] [id number] Telephone encounter Note* Telephone Encounter - Shelia Claros MA - 08/12/2025 10:42 AM EDT Copied from : [place]. They said room at B, though, this is Pamela Neal. If rheumatology said that the appointment would still be january 01 at 830 in the morning. So it is 6 months away. I got to do something else other than that, I mean. I think we are I guess if we can set up and send or in [place], we will have to try that. So, all right, thank you. Julian. I faxed the referral to [facility] and gave him the number to call later. Can you look at the note about if you would be able to do something in the meantime. [facility] [id number] Telephone encounter Note* Telephone Encounter - Shelia Claros MA - 08/12/2025 10:05 AM EDT I did talk to Pamela. Dr bergman office called him so he is going to call them back and see if they can get him in any sooner because his hands keeping getting worse. He soul hardly even dress himself over the weekend. If he cannot he is going to try and call [place] [facility]. He is asking if there is anything EH can due in the mean time to help with the inflammation and pain because nabeumtome is nothelping. [id number] Telephone encounter Note* Telephone Encounter - Shelia Claros MA - 08/12/2025 10:05 AM EDT ----- Message from Alex Jeffrey MD sent at 08/12/2025 9:20 AM EDT ----- ----- Message ----- From: Miley Lozano Lab Results In Sent: 08/09/2025 5:13 PM EDT To: Alex Jeffrey MD [facility] [id number] Telephone encounter Note* Telephone Encounter - Alex Jeffrey MD - 08/12/2025 9:16 AM EDT Notify Pamela that I did review the chest x-ray [...] EGD. He can either go see the [facility] surgeons or he can stay with [facility] group but Dr. Alvarez is no longer there. As I remember we offered him a referral to another machine adjuster helper, and he declined that because of the distance. [facility] [id number] History of Present illness Narrative* Alex Jeffrey MD - 06/20/2025 9:00 AM EDT Images from the original note were not included. Patient ID: Pamela Neal is a 64 y.o. male who presents for: Hypertension Patient is here for follow-up of elevated blood pressure. He is exercising and is adherent to a low-salt diet. Blood pressure is well controlled at home. Cardiac symptoms: none. Patient denies chest pain, dyspnea, irregular heart beat, lower extremity edema, and palpitations. Cardiovascular risk factors: advanced age (older than 55 for men, 65 for women), diabetes mellitus, dyslipidemia, hypertension, male gender, obesity (BMI >= 30 kg/m2), and sedentary lifestyle. Use of agents associated with hypertension: none. History of target organ damage: none. Hyperlipidemia Pt who presents for follow-up of dyslipidemia. A repeat fasting lipid profile was not done. The patient does not use medications that may worsen dyslipidemias (corticosteroids, progestins, anabolic steroids, diuretics, beta-blockers, amiodarone, cyclosporine, olanzapine). Exercise: daily. Diabetes Mellitus Patient presents for follow up of diabetes. Current symptoms include: none. Symptoms have stabilized. Patient denies increased appetite, paresthesia of the feet, and visual disturbances. Evaluation to date has included: hemoglobin A1C. Home sugars: pt states they are all over the place. Chronic Pain: Pt is here for follow-up of chronic pain related to bilateral shoulders but right is worse and bilateral knees, lower back and neck. Her/His pain is waxing and waning but worse overall with the restricted and limited use of walking. Pain is usually 7/10, described as aching, sharp, and throbbing and occurs continuously. He is not currently on any medications but is finding it harder and harder toget up and moving. He swims every day which he attributes to help some but he states if he does nottake tylenol around the clock its worse. Review of Systems Constitutional: Negative for activity change and fatigue. Respiratory: Negative for cough, shortness of breath and wheezing. Cardiovascular: Negative for chest pain, palpitations and leg swelling. Neurological: Negative for light-headedness and headaches. Objective The patient is pleasant and in no acute distress. The neck is supple and trachea is midline. No masses are appreciated. The heart is regular rate and rhythm without S3, S4. No murmur. The patient has normal respiratory pattern. The breath sounds are symmetrical without evidence of rhonchi or rales. No wheezing. The skin is warm and dry. The lower extremities have trace edema. The patient has good eye contact and speech is clear. Appropriate affect. Looking at some of his joints he does have some mild edema of multiple joints. Has some arthritic changes mostly in the D IP joints in his hands but he does have an across the PIP joints a little bit. The left knee just has not overall arthritic appearance. The right knee does not look any where near as bad but has significant Alessia-Schlatter's. He seems to have relatively full range of motion of all these joints and there is no specific increase in rubor or calor. 01/21/2025 9:25 AM 12/20/2024 8:20 AM 06/26/2024 8:04 AM 01/19/2024 8:18 AM Vitals BMI 31.82 kg/m2 31.45 kg/m2 31.01 kg/m2 30.2 kg/m2 BSA (m2) 2.18 m2 2.17 m2 2.15 m2 2.13 m2 Systolic 128 124 118 124 Diastolic 78 70 70 74 Heart Rate 65 72 70 70 SpO2 99 % 97 % 98 % 99 % Height (in) 5' 9 5' 9 5' 9 5' 9 Weight (lb) 215.5 213 210 204.5 Visit Report Report Report Report Report Component Ref Range & Units 8 d ago (06/12/25) 6 mo ago (12/18/24) 12 mo ago (06/21/24) 1 yr ago (01/09/24) 1 yr ago (12/23/23) 1 yr ago (06/29/23) 2 yr ago (12/27/22) Hemoglobin A1C <5.7 % 7.6 High 7.0 High R, CM 6.6 High R, CM 6.6 High R, CM 6.7 High R, CM Allergies Allergen Reactions Atorvastatin Other Reaction(s): Unknown Glipizide GI intolerance Ketorolac Tromethamine Other Reaction(s): Hives Penicillin G Other Reaction(s): Hives Rosuvastatin Other Reaction(s): nausea and vomiting Current Outpatient Medications on File Prior to Visit Medication Sig Dispense Refill albuterol HFA 90 mcg/act inhaler Inhale 2 puffs every 4 (four) hours if needed for wheezing or shortness of breath 54 g 1 aspirin 81 MG EC tablet Take 81 mg by mouth in the morning. Blood Glucose Monitoring Suppl (ONE TOUCH ULTRA 2) w/Device kit fsbs 1 kit 3 fenofibrate (Tricor) 145 MG tablet Take 1 tablet (145 mg) by mouth Daily 90 tablet 1 glucose blood (OneTouch Ultra) test strip Fasting BS daily. May also check a second time daily for symptoms. 200 each 2 Lancets (OneTouch Delica Plus [id number]) [facility] Fasting BS daily. May also check a second time daily for symptoms. 200 each 3 losartan (Cozaar) 100 MG tablet Take 1 tablet (100 mg) by mouth Daily 90 tablet 1 magnesium 250 MG tablet Take 1 tablet by mouth 1 (one) time each day at the same time metFORMIN (Glucophage) 1000 MG tablet Take 1 tablet (1,000 mg) by mouth in the morning and 1 tablet(1,000 mg) in the evening. Take with meals. 180 tablet 1 metoprolol tartrate (Lopressor) 100 MG tablet Take 0.5 tablets (50 mg) by mouth in the morning and 0.5 tablets (50 mg) before bedtime. 90 tablet 1 naproxen (Naprosyn) 250 MG tablet Take 250 mg by mouth 2 (two) times a day as needed for mild pain omega-3 (Fish Oil) 1000 MG capsule Take 1,000 mg by mouth in the morning. sildenafil (Viagra) 100 MG tablet Take 100 mg by mouth if needed. No current facility-administered medications on file prior to visit. 1. Essential hypertension (Primary) Chronic problem, stable, to goal. - losartan (Cozaar) 100 MG tablet; Take 1 tablet (100 mg) by mouth Daily Dispense: 90 tablet; Refill: 0 - metoprolol tartrate (Lopressor) 100 MG tablet; Take 0.5 tablets (50 mg) by mouth in the morning and 0.5 tablets (50 mg) before bedtime. Dispense: 90 tablet; Refill: 0 2. Mixed hyperlipidemia In prescribing a renewal to their current medication, consideration of the following encompasses moderate decision making; the current prescriptions and supplements, the current allergies and medication intolerances, current medical conditions, and potential drug interactions. The patient was given a chance to ask questions today and all questions were answered. New - aspirin 81 MG EC tablet; Take 1 tablet (81 mg) by mouth Daily - fenofibrate (Tricor) 145 MG tablet; Take 1 tablet (145 mg) by mouth Daily Dispense: 90 tablet; Refill: 0 3. Myalgia due to statin He is tolerating the fenofibrate, and this is an exclusionary diagnosis for the HEDIS measures. 4. Type 2 diabetes mellitus with hyperglycemia, without long-term current use of insulin (HCC) Acute problem see the discussion below 5. Type 2 diabetes mellitus with other diabetic kidney complication (HCC) Chronic problem, unstable, not to goal. He has actually worsened since last time when he had a hemoglobin of 7. We discussed the importance of getting this to goal. We discussed potentially using some Actos but with his arthralgias that we have not diagnosed yet I think he would be better served with a medication like Jardiance. I educated him on how the medication works and the complication of yeast or other infection. We discussed the importance of hygiene post urination. We discussed any signs of sores on the penis itself or in the perineal area that he needs to seek urgent medical attention. In prescribing a new medication consideration of the following encompasses moderate decision making: the current prescriptions and supplements, the current allergies and medication intolerances, the current medical conditions, and potential drug interactions. Risks, benefits, and reason for starting their medication were discussed. The patient was given a chance to ask questions today and all questions were answered. The patient is to contact us if any other questions arise or if any problems occur with the adjustment in their medication. - Hemoglobin A1c; Future - metFORMIN (Glucophage) 1000 MG tablet; Take 1 tablet (1,000 mg) by mouth in the morning and 1 tablet (1,000 mg) in the evening. Take with meals. Dispense: 180 tablet; Refill: 0 - empagliflozin (Jardiance) 25 MG; Take 1 tablet (25 mg) by mouth Daily Dispense: 90 tablet; Refill: 1 - Hemoglobin A1c 6. Microalbuminuria Chronic problem, defining an aspect the nephropathy, with significant risk, uncertain progression requiring longitudinal monitoring, and moderate decision making. Microalbuminuria describes a moderate increase in the level of urine albumin. Normally, the kidneysfilter albumin, so if the kidney leaks small amounts of albumin into the urine then it is a indicator of chronic kidney disease. Microalbuminuria is an independent indicator of increased cardiovascular risk among individuals andtherefore can be used for risk stratification for cardiovascular disease. 7. Diabetic cataract, associated with type 2 diabetes mellitus (HCC) Chronic problem and he denies any visual changes. Managed by eye care. - Hemoglobin A1c; Future - Hemoglobin A1c 8. Non morbid obesity due to excess calories Encouraged walking program although I do think this will be difficult with the chronic pain. 9. Chronic pain syndrome Chronic problem that is significantly affecting his life. I do think we need to address this. Afterdiscussion we are going to do some laboratory evaluation. Once we get this back we will make a determination if he has a new diagnosis concerning treatment or referral for that otherwise we will bring him back in for a discussion of chronic pain what he can expect and what medicines we can prescribe. 10. Arthralgia, unspecified joint - Sedimentation rate, automated; Future - Uric acid; Future - ABA; Future - Rheumatoid factor; Future - Sedimentation rate, automated - Uric acid - ABA - Rheumatoid factor Please Note: Portions of this chart may have been created using voice recognition software. Occasionally a wrong-word or sound-like substitutions may have occurred due to inherent limitations of the voice recognition software. Please read the chart carefully and recognize, using context, where the substitutions may have occurred. documented in this encounterMiss[facility] [id number] History of Present illness Narrative* Alex Jeffrey MD - 12/20/2024 8:30 AM EST Images from the original note were not included. Patient ID: Pamela Neal is a 64 y.o. male who presents for: Needs a Micro Hypertension Patient is here for follow-up of elevated blood pressure. He is not exercising and is adherent to alow-salt diet. Blood pressure is well controlled at home. Cardiac symptoms: none. Patient denies chest pain, dyspnea, irregular heart beat, lower extremity edema, and palpitations. Cardiovascular risk factors: advanced age (older than 55 for men, 65 for women), diabetes mellitus, dyslipidemia, hypertension, male gender, microalbuminuria, obesity (BMI >= 30 kg/m2), and smoking/ tobacco exposure. Use of agents associated with hypertension: none. History of target organ damage: none. Hyperlipidemia Pt who presents for follow-up of dyslipidemia. A repeat fasting lipid profile was done. The patientdoes not use medications that may worsen dyslipidemias (corticosteroids, progestins, anabolic steroids, diuretics, beta-blockers, amiodarone, cyclosporine, olanzapine). Exercise: rarely. Diabetes Mellitus Patient presents for follow up of diabetes. Current symptoms include: none. Symptoms have stabilized. Patient denies increased appetite, paresthesia of the feet, polydipsia, polyuria, and visual disturbances. Evaluation to date has included: fasting blood sugar, fasting lipid panel, and hemoglobin A1C. Home sugars: BGs consistently in an acceptable range. Review of Systems Constitutional: Negative for activity change and fatigue. Respiratory: Negative for cough, shortness of breath and wheezing. Cardiovascular: Negative for chest pain, palpitations and leg swelling. Neurological: Negative for light-headedness and headaches. Objective The patient is pleasant and in no acute distress. Actually overall appears healthier and happier than usual. The neck is supple and trachea is midline. No masses are appreciated. The heart is regular rate and rhythm without S3, S4. No murmur. The patient has normal respiratory pattern. The breath sounds are Diffusely decreased as usual, butsymmetrical without evidence of rhonchi or rales. No wheezing. The skin is warm and dry. The lower extremities have trace edema. The patient has good eye contact and speech is clear. Appropriate affect. Visit Vitals BP 124/70 Pulse 72 Ht 5' 9 Wt 213 lb SpO2 97% BMI 31.45 kg/m Smoking Status Some Days BSA 2.17 m Labs reviewed Allergies Allergen Reactions Atorvastatin Other Reaction(s): Unknown Glipizide GI intolerance Ketorolac Tromethamine Other Reaction(s): Hives Penicillin G Other Reaction(s): Hives Rosuvastatin Other Reaction(s): nausea and vomiting Current Outpatient Medications on File Prior to Visit Medication Sig Dispense Refill albuterol HFA 90 mcg/act inhaler Inhale 2 puffs every 4 (four) hours if needed for wheezing 54 g 1 aspirin 81 MG EC tablet Take 81 mg by mouth in the morning. Blood Glucose Monitoring Suppl (ONE TOUCH ULTRA 2) w/Device kit fsbs 1 kit 3 glucose blood (OneTouch Ultra) test strip Fasting BS daily. May also check a second time daily for symptoms. 200 each 2 Lancets (OneTouch Delica Plus [id number]) [facility] Fasting BS daily. May also check a second time daily for symptoms. 200 each 3 losartan (Cozaar) 100 MG tablet Take 1 tablet (100 mg) by mouth Daily 90 tablet 1 magnesium 250 MG tablet Take 2 tablets by mouth 1 (one) time each day at the same time. metFORMIN (Glucophage) 1000 MG tablet Take 1 tablet (1,000 mg) by mouth in the morning and 1 tablet(1,000 mg) in the evening. Take with meals. 180 tablet 1 metoprolol tartrate (Lopressor) 100 MG tablet Take 0.5 tablets (50 mg) by mouth in the morning and 0.5 tablets (50 mg) before bedtime. 90 tablet 1 omega-3 (Fish Oil) 1000 MG capsule Take 1,000 mg by mouth in the morning. sildenafil (Viagra) 100 MG tablet Take 100 mg by mouth if needed. naproxen (Naprosyn) 250 MG tablet Take 250 mg by mouth 2 (two) times a day as needed for mild pain.(Patient not taking: Reported on 12/20/2024) No current facility-administered medications on file prior to visit. 1. Essential hypertension (CMS/HCC) (Primary) Chronic problem, stable, to goal. - losartan (Cozaar) 100 MG tablet; Take 1 tablet (100 mg) by mouth Daily Dispense: 90 tablet; Refill: 1 - metoprolol tartrate (Lopressor) 100 MG tablet; Take 0.5 tablets (50 mg) by mouth in the morning and 0.5 tablets (50 mg) before bedtime. Dispense: 90 tablet; Refill: 1 - POCT microalbumin manually resulted 2. Hypertensive nephropathy (CMS/HCC) Chronic problem, stable, demonstrating end organ damage from their current state of health. I stressed the importance of keeping blood pressure and blood sugar to goal, staying well hydrated,avoiding NSAIDs, and aerobic exercises as tolerated. Continue to monitor longitudinally. 3. Microalbuminuria Chronic problem, defining an aspect the nephropathy, with significant risk, uncertain progression requiring longitudinal monitoring, and moderate decision making. Microalbuminuria describes a moderate increase in the level of urine albumin. Normally, the kidneysfilter albumin, so if the kidney leaks small amounts of albumin into the urine then it is a indicator of chronic kidney disease. Microalbuminuria is an independent indicator of increased cardiovascular risk among individuals andtherefore can be used for risk stratification for cardiovascular disease. - POCT microalbumin manually resulted 4. Type 2 diabetes mellitus with other diabetic kidney complication (CMS/HCC) Chronic problem, stable, to goal. In prescribing a renewal to their current medication, consideration of the following encompasses moderate decision making; the current prescriptions and supplements, the current allergies and medication intolerances, current medical conditions, and potential drug interactions. Any changes to risks, benefits, and reason for renewing their current medication due to the above were discussed. The patient was given a chance to ask questions today and all questions were answered. The patient is to contact us if any other questions arise or if any problems occur. (Utilizing the original guidelines or the 2020 office/outpatient code guidelines for selecting the level of E/M service, In both sets of guidelines, prescription drug management appears in the moderate medical decision making (MDM) row. Neither the original guidelines nor the new guidelines state that a new prescription or change is needed in order to credit prescription drug management) - metFORMIN (Glucophage) 1000 MG tablet; Take 1 tablet (1,000 mg) by mouth in the morning and 1 tablet (1,000 mg) in the evening. Take with meals. Dispense: 180 tablet; Refill: 1 - POCT microalbumin manually resulted 5. Diabetic cataract, associated with type 2 diabetes mellitus (CMS/HCC) Managed by Ophthalmology 6. Diabetic peripheral neuropathy associated with type 2 diabetes mellitus (CMS/HCC) Chronic problem, stable. Patient notes that the pain and feeling in his feet are a proximally the same as they usually are. He feels it is manageable and does not need medication. 7. Mixed hyperlipidemia (CMS/HCC) Chronic problem that is unstable and worsening. This is especially true of his triglycerides. He isstatin intolerant. In prescribing a new medication consideration of the following encompasses moderate decision making: the current prescriptions and supplements, the current allergies and medication intolerances, the current medical conditions, and potential drug interactions. Risks, benefits, and reason for starting their medication were discussed. The patient was given a chance to ask questions today and all questions were answered. The patient is to contact us if any other questions arise or if any problems occur with the adjustment in their medication. - fenofibrate (Tricor) 145 MG tablet; Take 1 tablet (145 mg) by mouth Daily Dispense: 30 tablet; Refill: 0 8. Polypharmacy Chronic problem The patient meets the criteria for polypharmacy; 5 or more prescriptions or multi-morbidity definedas 5 or more diagnoses. Polypharmacy can significantly increase the risk of preventable adverse drug events and negatively impact adherence. Consideration of diverse factors such as clinician agreement, patient perspective,and de-prescribing, as appropriate can improve patient outcomes while simplifying care. This requires longitudinal monitoring as there is at least a moderate risk of morbidity and requires at least amoderate degree of evaluation and management. 9. Cigarette smoker Chronic problem that is unstable. The patient continues to use tobacco products or nicotine. Your goal is to quit using tobacco or vapor, as it significantly worsens health risks and complicates treatments. The patient was given a chance to ask questions and they declined medical intervention. 10. Adverse reaction to statin medication Exclusionary diagnosis for the HEDIS measures documented in this encounterMissouri Baptist Medical [id number] Hospital Discharge instructions Patient Education 07/31/2024 10:09:04 Benign Prostatic Hyperplasia Benign Prostatic Hyperplasia Benign prostatic hyperplasia (BPH) is an enlarged prostate gland that is caused by the normal agingprocess. The prostate may get bigger as a man gets older. The condition is not caused by cancer. The prostate is a walnut-sized gland that is involved in the production of semen. It is located in front of the rectum and below the bladder. The bladder stores urine. The urethra carries stored urine ou t of the body. An enlarged prostate can press on the urethra. This can make it harder to pass urine. The buildup of urine in the bladder can cause infection. Back pressure and infection may progress to bladder damage and kidney (renal) failure. What are the causes? This condition is part of the normal aging process. However, not all men develop problems from thiscondition. If the prostate enlarges away from the urethra, urine flow will not be blocked. If it enlarges toward the urethra and compresses it, there will be problems passing urine. What increases the risk? This condition is more likely to develop in men older than 50 years. What are the signs or symptoms? Symptoms of this condition include: Getting up often during the night to urinate. Needing to urinate frequently during the day. Difficulty starting urine flow. Decrease in size and strength of your urine stream. Leaking (dribbling) after urinating. Inability to pass urine. This needs immediate treatment. Inability to completely empty your bladder. Pain when you pass urine. This is more common if there is also an infection. Urinary tract infection (UTI). How is this diagnosed? This condition is diagnosed based on your medical history, a physical exam, and your symptoms. Tests will also be done, such as: A post-void bladder scan. This measures any amount of urine that may remain in your bladder after you finish urinating. A digital rectal exam. In a rectal exam, your health care provider checks your prostate by putting a lubricated, gloved finger into your rectum to feel the back of your prostate gland. This exam detects the size of your gland and any abnormal lumps or growths. An exam of your urine (urinalysis). A prostate specific antigen (PSA) screening. This is a blood test used to screen for prostate cancer. An ultrasound. This test uses sound waves to electronically produce a picture of your prostate gland. Your health care provider may refer you to a specialist in kidney and prostate diseases (urologist). How is this treated? Once symptoms begin, your health care provider will monitor your condition (active surveillance or watchful waiting). Treatment for this condition will depend on the severity of your condition. Treatment may include: Observation and yearly exams. This may be the only treatment needed if your condition and symptoms are mild. Medicines to relieve your symptoms, including: ?Medicines to shrink the prostate. ?Medicines to relax the muscle of the prostate. Surgery in severe cases. Surgery may include: ?Prostatectomy. In this procedure, the prostate tissue is removed completely through an open incision or with a laparoscope or robotics. ?Transurethral resection of the prostate (TURP). In this procedure, a tool is inserted through the opening at the tip of the penis (urethra). It is used to cut away tissue of the inner core of the prostate. The pieces are removed through the same opening of the penis. This removes the blockage. ?Transurethral incision (TUIP). In this procedure, small cuts are made in the prostate. This lessens the prostate's pressure on the urethra. ?Transurethral microwave thermotherapy (TUMT). This procedure uses microwaves to create heat. The heat destroys and removes a small amount of prostate tissue. ?Transurethral needle ablation (TUNA). This procedure uses radio frequencies to destroy and remove a small amount of prostate tissue. ?Interstitial laser coagulation (ILC). This procedure uses a laser to destroy and remove a small amount of prostate tissue. ?Transurethral electrovaporization (TUVP). This procedure uses electrodes to destroy and remove a small amount of prostate tissue. ?Prostatic urethral lift. This procedure inserts an implant to push the lobes of the prostate away from the urethra. Follow these instructions at home: Take [id number] and prescription medicines only as told by your health care provider. Monitor your symptoms for any changes. Contact your health care provider with any changes. Avoid drinking large amounts of liquid before going to bed or out in public. Avoid or reduce how much caffeine or alcohol you drink. Give yourself time when you urinate. Keep all follow-up visits. This is important. Contact a health care provider if: You have unexplained back pain. Your symptoms do not get better with treatment. You develop side effects from the medicine you are taking. Your urine becomes very dark or has a bad smell. Your lower abdomen becomes distended and you have trouble passing urine. Get help right away if: You have a fever or chills. You suddenly cannot urinate. You feel light-headed or very dizzy, or you faint. There are large amounts of blood or clots in your urine. Your urinary problems become hard to manage. You develop moderate to severe low back or flank pain. The flank is the side of your body between the ribs and the hip. These symptoms may be an emergency. Get help right away. Call 911. Do not wait to see if the symptoms will go away. Do not drive yourself to the hospital. Summary Benign prostatic hyperplasia (BPH) is an enlarged prostate that is caused by the normal aging process. It is not caused by cancer. An enlarged prostate can press on the urethra. This can make it hard to pass urine. This condition is more likely to develop in men older than 50 years. Get help right away if you suddenly cannot urinate. This information is not intended to replace advice given to you by your health care provider. Make sure you discuss any questions you have with your health care provider. Document Revised: 05/05/2022 Document Reviewed: 05/05/2022 [employer] Patient Education 2023 [employer] Follow Up Care 08/02/2023 09:11:51 With:FLY MCGUIRE PA-C, KARENL Address: When:1 year [facility] [employer] 08-27-2024 History of Present illness Narrative* Alex Jeffrey MD - 06/26/2024 8:00 AM EDT Images from the original note were not included. Patient ID: Pamela Neal is a 63 y.o. male who presents for: Hypertension Patient is here for follow-up of elevated blood pressure. He is exercising and is adherent to a low-salt diet. Blood pressure is not well controlled at home. Cardiac symptoms: none. Patient denies chest pain, dyspnea, irregular heart beat, lower extremity edema, and palpitations. Cardiovascular risk factors: advanced age (older than 55 for men, 65 for women), diabetes mellitus, dyslipidemia, hypertension, male gender, obesity (BMI >= 30 kg/m2), and smoking/ tobacco exposure. Use of agents associated with hypertension: none. History of target organ damage: none. He is not using his albuterol because it was too expensive in pharmacy quoted him 140 dollars his insurance. Hyperlipidemia Pt who presents for follow-up of dyslipidemia. A repeat fasting lipid profile was not done. The patient does not use medications that may worsen dyslipidemias (corticosteroids, progestins, anabolic steroids, diuretics, beta-blockers, amiodarone, cyclosporine, olanzapine). Exercise: daily. Diabetes Mellitus Patient presents for follow up of diabetes. Current symptoms include: paresthesia of the feet. Symptoms have stabilized. Patient denies nausea, polydipsia, polyuria, and visual disturbances. Evaluation to date has included: hemoglobin A1C. Home sugars: patient does not check sugars. His meter has broken by description. He tried test strips from 1 bottle and then brand new bottle in the machine did not. Review of Systems Constitutional: Negative for chills and fever. Respiratory: Negative for cough, shortness of breath and wheezing. Cardiovascular: Negative for chest pain and palpitations. Gastrointestinal: Negative for abdominal pain. Genitourinary: Negative for frequency and urgency. Objective The patient is pleasant and in no acute distress. Odor of cigarette smoke noted The neck is supple and trachea is midline. No masses are appreciated. The heart is regular rate and rhythm without S3, S4. No murmur. The patient has normal respiratory pattern. The breath sounds are symmetrical without evidence of rhonchi or rales. Mild diffused inspiratory wheezing. The skin is warm and dry. The lower extremities have trace edema. The patient has good eye contact and speech is clear. Appropriate but constricted affect. Visit Vitals BP 118/70 Pulse 70 Ht 5' 9 Wt 210 lb SpO2 98% BMI 31.01 kg/m Smoking Status Some Days BSA 2.15 m Telephone on 06/18/2024 Component Date Value Ref Range Status Hemoglobin A1C 06/21/2024 6.6 (H) <5.7 % of total Hgb Final Comment: For someone without known diabetes, a hemoglobin [...] A1c for diagnosis of diabetes for children. This test was performed on the Cristina daryl c503 platform. Effective 10/17/23, a change in test platforms from the [facility] [employer] to the Cristina daryl c503 may have shifted HbA1c results compared to historical results. Based on laboratory validation testing conducted at [facility], the Cristina platform relative to the [employer] platform had an average increase in HbA1c value of < or = 0.3%. This difference is with in accepted variability established by the National Glycohemoglobin Standardization Program. Note that not all individuals will have had a shift in their results and direct comparisons between historical and current results for testing conducted on different platforms is not recommended. External Result Encounter on 01/09/2024 Component Date Value Ref Range Status Hemoglobin A1C 01/09/2024 6.6 (H) <5.7 % of total Hgb Final Comment: For someone without known diabetes, a hemoglobin [...] A1c for diagnosis of diabetes for children. This test was performed on the [employer] c503 platform. Effective 10/17/23, a change in test platforms from the [facility] to the [employer] daryl c503 may have shifted HbA1c results compared to historical results. Based on laboratory validation testing conducted at [facility], the Cristina platform relative to the [employer] platform had an average increase in HbA1c value of < or = 0.3%. This difference is with in accepted variability established by the National Glycohemoglobin Standardization Program. Note that not all individuals will have had a shift in their results and direct comparisons between historical and current results for testing conducted on different platforms is not recommended. Allergies Allergen Reactions Atorvastatin Other Reaction(s): Unknown Ketorolac Tromethamine Other Reaction(s): Hives Penicillin G Other Reaction(s): Hives Rosuvastatin Other Reaction(s): nausea and vomiting Current Outpatient Medications on File Prior to Visit Medication Sig Dispense Refill albuterol HFA 90 mcg/act inhaler Inhale 2 puffs every 4 (four) hours if needed for wheezing 54 g 1 aspirin 81 MG EC tablet Take 81 mg by mouth in the morning. losartan (Cozaar) 100 MG tablet Take 1 tablet (100 mg) by mouth Daily 90 tablet 1 magnesium 250 MG tablet Take 2 tablets by mouth 1 (one) time each day at the same time. metFORMIN (Glucophage) 1000 MG tablet Take 1 tablet (1,000 mg) by mouth in the morning and 1 tablet(1,000 mg) in the evening. Take with meals. 180 tablet 1 metoprolol tartrate (Lopressor) 100 MG tablet Take 0.5 tablets (50 mg) by mouth in the morning and 0.5 tablets (50 mg) before bedtime. 90 tablet 1 naproxen (Naprosyn) 250 MG tablet Take 250 mg by mouth 2 (two) times a day as needed for mild pain. omega-3 (Fish Oil) 1000 MG capsule Take 1,000 mg by mouth in the morning. rosuvastatin (Crestor) 5 MG tablet Take 1 tablet (5 mg) by mouth Daily (Patient not taking: Reported on 06/26/2024) 90 tablet 1 sildenafil (Viagra) 100 MG tablet Take 100 mg by mouth if needed. No current facility-administered medications on file prior to visit. 1. Essential hypertension (CMS/HCC) Chronic problem, stable, to goal - losartan (Cozaar) 100 MG tablet; Take 1 tablet (100 mg) by mouth Daily Dispense: 90 tablet; Refill: 1 - metoprolol tartrate (Lopressor) 100 MG tablet; Take 0.5 tablets (50 mg) by mouth in the morning and 0.5 tablets (50 mg) before bedtime. Dispense: 90 tablet; Refill: 1 - Comprehensive metabolic panel; Future - Comprehensive metabolic panel 2. Diabetic peripheral neuropathy associated with type 2 diabetes mellitus ([facility]) Chronic problem, stable, to goal. He stopped the glipizide because it was causing nausea. He has not been checking his blood sugars as noted above but some how he thinks he had low sugars of 40- 60 on a. And wondering if the machine was already breaking at that point. After discussion we will go ahead and supply him with a prescription for machine and testing stripsand lancets. For now since he is to goal we will leave the glipizide discontinued in his been listed in his allergies. In prescribing a renewal to their current medication, consideration of the following encompasses moderate decision making; the current prescriptions and supplements, the current allergies and medication intolerances, current medical conditions, and potential drug interactions. Any changes to risks, benefits, and reason for renewing their current medication due to the above were discussed. The patient was given a chance to ask questions today and all questions were answered. The patient is to contact us if any other questions arise or if any problems occur. (Utilizing the original 1994/1996 guidelines or the 2020 office/outpatient code guidelines for selecting the level of E/M service, In both sets of guidelines, prescription drug management appears in the moderate medical decision making (MDM) row. Neither the original guidelines nor the new guidelines state that a new prescription or change is needed in order to credit prescription drug management) 3. Diabetic cataract, associated with type 2 diabetes mellitus ([facility]) Encouraged his yearly eye examinations. 4. Type 2 diabetes mellitus with other diabetic kidney complication ([facility]) - metFORMIN (Glucophage) 1000 MG tablet; Take 1 tablet (1,000 mg) by mouth in the morning and 1 tablet (1,000 mg) in the evening. Take with meals. Dispense: 180 tablet; Refill: 1 - Blood Glucose Monitoring Suppl (ONE TOUCH ULTRA 2) w/Device kit; fsbs Dispense: 1 kit; Refill: 3 - Lancets ([employer] Delica Plus [id number]) misc; Fasting BS daily. May also check a second time daily for symptoms. Dispense: 200 each; Refill: 3 - glucose blood (OneOpendiscuch Ultra) test strip; Fasting BS daily. May also check a second time daily for symptoms. Dispense: 200 each; Refill: 2 - Comprehensive metabolic panel; Future - Hemoglobin A1c; Future - Comprehensive metabolic panel - Hemoglobin A1c 5. Mixed hyperlipidemia (CMS/HCC) Chronic problem that is unstable and not to goal. The patient has now tried 2 different statin medications including the rosuvastatin which most statin sensitive people can tolerate. He does not wantto try any further ones and I can not blame him. I did discuss with him however that he could do something other than statins that would not give him quite as much protection but he would most likely tolerate. He is not interested in starting that at this time. - Lipid panel; Future - Lipid panel 6. Adverse reaction to statin medication As noted above 7. Simple chronic bronchitis (CMS/HCC) He is wheezing today. He notes he has been having some shortness of breath especially the especially with the heat and humidity. He has not been using albuterol inhaler because he is out in it was too expensive. I did look up the good Rx prescription and gave him the actual coupon which should makeit more affordable. 8. At high risk for cardiovascular disease We did review the significant elevation of his ASCVD risk score. ASCVD 10-Year Risk Score 35.2% +0.4 Last 6 months Simulator Last 6 monthsLast 12 monthsLast 2 years [id number] monthsago4 monthsago2 [id number] Changed In Last 6 Months Value Factor Last Changed 118 Systolic BP 8 minutes ago Yes Is BP Treated 8 minutes ago 45 mg/dL HDL 4 months ago 223 mg/dL High Total cholesterol 4 months ago Additional Factors Value Factor Last Changed 63 Age 10 months ago Yes Smokes Tobacco 1 year ago Yes Has Diabetes 15 months ago Male Legal Sex 15 months ago No Non- 15 months ago 9. Cigarette smoker Chronic problem that is unstable. The patient continues to use tobacco products or nicotine. Your goal is to quit using tobacco or vapor, as it significantly worsens health risks and complicates treatments. The patient was given a chance to ask questions and they declined medical intervention. 10. Polypharmacy Chronic problem The patient meets the criteria for polypharmacy; 5 or more prescriptions or multi-morbidity definedas 5 or more diagnoses. Polypharmacy can significantly increase the risk of preventable adverse drug events and negatively impact adherence. Consideration of diverse factors such as clinician agreement, patient perspective,and de-prescribing, as appropriate can improve patient outcomes while simplifying care. This requires longitudinal monitoring as there is at least a moderate risk of morbidity and requires at least amoderate degree of evaluation and management. 11. Non morbid obesity due to excess calories Encouraged elimination of sweets in increased walking. [id number] Hospital Discharge instructions Patient Education 08/02/2023 09:01:44 Erectile Dysfunction Erectile Dysfunction Erectile dysfunction (ED) is the inability to get or keep an erection in order to have sexual intercourse. ED is considered a symptom of an underlying disorder and is not considered a disease. ED mayinclude: Inability to get an erection. Lack of enough hardness of the erection to allow penetration. Loss of erection before sex is finished. What are the causes? This condition may be caused by: Physical causes, such as: ?Artery problems. This may include heart disease, high blood pressure, atherosclerosis, and diabetes. ?Hormonal problems, such as low testosterone. ?Obesity. ?Nerve problems. This may include back or pelvic injuries, multiple sclerosis, Parkinson's disease,spinal cord injury, and stroke. Certain medicines, such as: ?Pain relievers. ?Antidepressants. ?Blood pressure medicines and water pills (diuretics). ?Cancer medicines. ?Antihistamines. ?Muscle relaxants. Lifestyle factors, such as: ?Use of drugs such as marijuana, cocaine, or opioids. ?Excessive use of alcohol. ?Smoking. ?Lack of physical activity or exercise. Psychological causes, such as: ?Anxiety or stress. ?Sadness or depression. ?Exhaustion. ?Fear about sexual performance. ?Guilt. What are the signs or symptoms? Symptoms of this condition include: Inability to get an erection. Lack of enough hardness of the erection to allow penetration. Loss of the erection before sex is finished. Sometimes having normal erections, but with frequent unsatisfactory episodes. Low sexual satisfaction in either partner due to erection problems. A curved penis occurring with erection. The curve may cause pain, or the penis may be too curved toallow for intercourse. Never having nighttime or morning erections. How is this diagnosed? This condition is often diagnosed by: Performing a physical exam to find other diseases or specific problems with the penis. Asking you detailed questions about the problem. Doing tests, such as: ?Blood tests to check for diabetes mellitus or high cholesterol, or to measure hormone levels. ?Other tests to check for underlying health conditions. ?An ultrasound exam to check for scarring. ?A test to check blood flow to the penis. Doing a sleep study at home to measure nighttime erections. How is this treated? This condition may be treated by: Medicines, such as: ?Medicine taken by mouth to help you achieve an erection (oral medicine). ?Hormone replacement therapy to replace low testosterone levels. ?Medicine that is injected into the penis. Your health care provider may instruct you how to give yourself these injections at home. ?Medicine that is delivered with a short applicator tube. The tube is inserted into the opening at the tip of the penis, which is the opening of the urethra. A tiny pellet of medicine is put in the urethra. The pellet dissolves and enhances erectile function. This is also called MUSE (medicated urethral system for erections) therapy. Vacuum pump. This is a pump with a ring on it. The pump and ring are placed on the penis and used to create pressure that helps the penis become erect. Penile implant surgery. In this procedure, you may receive: ?An inflatable implant. This consists of cylinders, a pump, and a reservoir. The cylinders can be inflated with a fluid that helps to create an erection, and they can be deflated after intercourse. ?A semi-rigid implant. This consists of two silicone rubber rods. The rods provide some rigidity. They are also flexible, so the penis can both curve downward in its normal position and become straight for sexual intercourse. Blood vessel surgery to improve blood flow to the penis. During this procedure, a blood vessel froma different part of the body is placed into the penis to allow blood to flow around (bypass) damaged or blocked blood vessels. Lifestyle changes, such as exercising more, losing weight, and quitting smoking. Follow these instructions at home: Medicines Take myyb-uzz-meyletm and prescription medicines only as told by your health care provider. Do not increase the dosage without first discussing it with your health care provider. If you are using self-injections, do injections as directed by your health care provider. Make sureyou avoid any veins that are on the surface of the penis. After giving an injection, apply pressureto the injection site for 5 minutes. Talk to your health care provider about how to prevent headaches while taking ED medicines. These medicines may cause a sudden headache due to the increase in blood flow in your body. General instructions Exercise regularly, as directed by your health care provider. Work with your health care provider to lose weight, if needed. Do not use any products that contain nicotine or tobacco. These products include cigarettes, chewing tobacco, and vaping devices, such as e-cigarettes. If you need help quitting, ask your health careprovider. Before using a vacuum pump, read the instructions that come with the pump and discuss any questionswith your health care provider. Keep all follow-up visits. This is important. Contact a health care provider if: You feel nauseous. You are vomiting. You get sudden headaches while taking ED medicines. You have any concerns about your sexual health. Get help right away if: You are taking oral or injectable medicines and you have an erection that lasts longer than 4 hours. If your health care provider is unavailable, go to the nearest emergency room for evaluation. An erection that lasts much longer than 4 hours can result in permanent damage to your penis. You have severe pain in your groin or abdomen. You develop redness or severe swelling of your penis. You have redness spreading at your groin or lower abdomen. You are unable to urinate. You experience chest pain or a rapid heartbeat (palpitations) after taking oral medicines. These symptoms may represent a serious problem that is an emergency. Do not wait to see if the symptoms will go away. Get medical help right away. Call your local emergency services (911 in the [place] Do not drive yourself to the hospital. Summary Erectile dysfunction (ED) is the inability to get or keep an erection during sexual intercourse. This condition is diagnosed based on a physical exam, your symptoms, and tests to determine the cause. Treatment varies depending on the cause and may include medicines, hormone therapy, surgery, or a vacuum pump. You may need follow-up visits to make sure that you are using your medicines or devices correctly. Get help right away if you are taking or injecting medicines and you have an erection that lasts longer than 4 hours. This information is not intended to replace advice given to you by your health care provider. Make sure you discuss any questions you have with your health care provider. Document Revised: 01/13/2022 Document Reviewed: 01/13/2022 [employer] Patient Education 2022 [employer]. Follow Up Care 09/20/2022 10:05:26 With:FLY MCGUIRE PA-C, URL Address: [address] [place] [address] [phone] When:Within 1 Year(s) Comments:w/ NICKIE, MACKENZIE, and PSA [facility] 09-22-2022 Hospital Discharge instructions Patient Education 07/22/2022 08:56:44 Erectile Dysfunction Erectile Dysfunction Erectile dysfunction (ED) is the inability to get or keep an erection in order to have sexual intercourse. Erectile dysfunction may include: Inability to get an erection. Lack of enough hardness of the erection to allow penetration. Loss of the erection before sex is finished. What are the causes? This condition may be caused by: Certain medicines, such as: ?Pain relievers. ?Antihistamines. ?Antidepressants. ?Blood pressure medicines. ?Water pills (diuretics). ?Ulcer medicines. ?Muscle relaxants. ?Drugs. Excessive drinking. Psychological causes, such as: ?Anxiety. ?Depression. ?Sadness. ?Exhaustion. ?Performance fear. ?Stress. Physical causes, such as: ?Artery problems. This may include diabetes, smoking, liver disease, or atherosclerosis. ?High blood pressure. ?Hormonal problems, such as low testosterone. ?Obesity. ?Nerve problems. This may include back or pelvic injuries, diabetes mellitus, multiple sclerosis, or Parkinson disease. What are the signs or symptoms? Symptoms of this condition include: Inability to get an erection. Lack of enough hardness of the erection to allow penetration. Loss of the erection before sex is finished. Normal erections at some times, but with frequent unsatisfactory episodes. Low sexual satisfaction in either partner due to erection problems. A curved penis occurring with erection. The curve may cause pain or the penis may be too curved to allow for intercourse. Never having nighttime erections. How is this diagnosed? This condition is often diagnosed by: Performing a physical exam to find other diseases or specific problems with the penis. Asking you detailed questions about the problem. Performing blood tests to check for diabetes mellitus or to measure hormone levels. Performing other tests to check for underlying health conditions. Performing an ultrasound exam to check for scarring. Performing a test to check blood flow to the penis. Doing a sleep study at home to measure nighttime erections. How is this treated? This condition may be treated by: Medicine taken by mouth to help you achieve an erection (oral medicine). Hormone replacement therapy to replace low testosterone levels. Medicine that is injected into the penis. Your health care provider may instruct you how to give yourself these injections at home. Vacuum pump. This is a pump with a ring on it. The pump and ring are placed on the penis and used to create pressure that helps the penis become erect. Penile implant surgery. In this procedure, you may receive: ?An inflatable implant. This consists of cylinders, a pump, and a reservoir. The cylinders can be inflated with a fluid that helps to create an erection, and they can be deflated after intercourse. ?A semi-rigid implant. This consists of two silicone rubber rods. The rods provide some rigidity. They are also flexible, so the penis can both curve downward in its normal position and become straight for sexual intercourse. Blood vessel surgery, to improve blood flow to the penis. During this procedure, a blood vessel from a different part of the body is placed into the penis to allow blood to flow around (bypass) damaged or blocked blood vessels. Lifestyle changes, such as exercising more, losing weight, and quitting smoking. Follow these instructions at home: Medicines Take clxq-shf-nsyyuhn and prescription medicines only as told by your health care provider. Do not increase the dosage without first discussing it with your health care provider. If you are using self-injections, perform injections as directed by your health care provider. Makesure to avoid any veins that are on the surface of the penis. After giving an injection, apply pressure to the injection site for 5 minutes. General instructions Exercise regularly, as directed by your health care provider. Work with your health care provider to lose weight, if needed. Do not use any products that contain nicotine or tobacco, such as cigarettes and e-cigarettes. If you need help quitting, ask your health care provider. Before using a vacuum pump, read the instructions that come with the pump and discuss any questionswith your health care provider. Keep all follow-up visits as told by your health care provider. This is important. Contact a health care provider if: You feel nauseous. You vomit. Get help right away if: You are taking oral or injectable medicines and you have an erection that lasts longer than 4 hours. If your health care provider is unavailable, go to the nearest emergency room for evaluation. An erection that lasts much longer than 4 hours can result in permanent damage to your penis. You have severe pain in your groin or abdomen. You develop redness or severe swelling of your penis. You have redness spreading up into your groin or lower abdomen. You are unable to urinate. You experience chest pain or a rapid heart beat (palpitations) after taking oral medicines. Summary Erectile dysfunction (ED) is the inability to get or keep an erection during sexual intercourse. This problem can usually be treated successfully. This condition is diagnosed based on a physical exam, your symptoms, and tests to determine the cause. Treatment varies depending on the cause, and may include medicines, hormone therapy, surgery, orvacuum pump. You may need follow-up visits to make sure that you are using your medicines or devices correctly. Get help right away if you are taking or injecting medicines and you have an erection that lasts longer than 4 hours. This information is not intended to replace advice given to you by your health care provider. Make sure you discuss any questions you have with your health care provider. Document Released: 10/14/2001 Document Revised: 09/29/2018 Document Reviewed: 11/02/2017 U-NOTE Patient Education 2020 [employer]. Follow Up Care 06/29/2022 08:36:02 With:FLY MCGUIRE PA-C, URL Address: [address] [place] [id number] When:07/22/2023 Comments:MACIEJ VILLALBA [facility] 05-31-2022 Hospital Discharge instructions Patient Education 03/30/2022 09:21:15 Erectile Dysfunction Erectile Dysfunction Erectile dysfunction (ED) is the inability to get or keep an erection in order to have sexual intercourse. Erectile dysfunction may include: Inability to get an erection. Lack of enough hardness of the erection to allow penetration. Loss of the erection before sex is finished. What are the causes? This condition may be caused by: Certain medicines, such as: ?Pain relievers. ?Antihistamines. ?Antidepressants. ?Blood pressure medicines. ?Water pills (diuretics). ?Ulcer medicines. ?Muscle relaxants. ?Drugs. Excessive drinking. Psychological causes, such as: ?Anxiety. ?Depression. ?Sadness. ?Exhaustion. ?Performance fear. ?Stress. Physical causes, such as: ?Artery problems. This may include diabetes, smoking, liver disease, or atherosclerosis. ?High blood pressure. ?Hormonal problems, such as low testosterone. ?Obesity. ?Nerve problems. This may include back or pelvic injuries, diabetes mellitus, multiple sclerosis, or Parkinson disease. What are the signs or symptoms? Symptoms of this condition include: Inability to get an erection. Lack of enough hardness of the erection to allow penetration. Loss of the erection before sex is finished. Normal erections at some times, but with frequent unsatisfactory episodes. Low sexual satisfaction in either partner due to erection problems. A curved penis occurring with erection. The curve may cause pain or the penis may be too curved to allow for intercourse. Never having nighttime erections. How is this diagnosed? This condition is often diagnosed by: Performing a physical exam to find other diseases or specific problems with the penis. Asking you detailed questions about the problem. Performing blood tests to check for diabetes mellitus or to measure hormone levels. Performing other tests to check for underlying health conditions. Performing an ultrasound exam to check for scarring. Performing a test to check blood flow to the penis. Doing a sleep study at home to measure nighttime erections. How is this treated? This condition may be treated by: Medicine taken by mouth to help you achieve an erection (oral medicine). Hormone replacement therapy to replace low testosterone levels. Medicine that is injected into the penis. Your health care provider may instruct you how to give yourself these injections at home. Vacuum pump. This is a pump with a ring on it. The pump and ring are placed on the penis and used to create pressure that helps the penis become erect. Penile implant surgery. In this procedure, you may receive: ?An inflatable implant. This consists of cylinders, a pump, and a reservoir. The cylinders can be inflated with a fluid that helps to create an erection, and they can be deflated after intercourse. ?A semi-rigid implant. This consists of two silicone rubber rods. The rods provide some rigidity. They are also flexible, so the penis can both curve downward in its normal position and become straight for sexual intercourse. Blood vessel surgery, to improve blood flow to the penis. During this procedure, a blood vessel from a different part of the body is placed into the penis to allow blood to flow around (bypass) damaged or blocked blood vessels. Lifestyle changes, such as exercising more, losing weight, and quitting smoking. Follow these instructions at home: Medicines Take mcku-oyq-yrvjzjw and prescription medicines only as told by your health care provider. Do not increase the dosage without first discussing it with your health care provider. If you are using self-injections, perform injections as directed by your health care provider. Makesure to avoid any veins that are on the surface of the penis. After giving an injection, apply pressure to the injection site for 5 minutes. General instructions Exercise regularly, as directed by your health care provider. Work with your health care provider to lose weight, if needed. Do not use any products that contain nicotine or tobacco, such as cigarettes and e-cigarettes. If you need help quitting, ask your health care provider. Before using a vacuum pump, read the instructions that come with the pump and discuss any questionswith your health care provider. Keep all follow-up visits as told by your health care provider. This is important. Contact a health care provider if: You feel nauseous. You vomit. Get help right away if: You are taking oral or injectable medicines and you have an erection that lasts longer than 4 hours. If your health care provider is unavailable, go to the nearest emergency room for evaluation. An erection that lasts much longer than 4 hours can result in permanent damage to your penis. You have severe pain in your groin or abdomen. You develop redness or severe swelling of your penis. You have redness spreading up into your groin or lower abdomen. You are unable to urinate. You experience chest pain or a rapid heart beat (palpitations) after taking oral medicines. Summary Erectile dysfunction (ED) is the inability to get or keep an erection during sexual intercourse. This problem can usually be treated successfully. This condition is diagnosed based on a physical exam, your symptoms, and tests to determine the cause. Treatment varies depending on the cause, and may include medicines, hormone therapy, surgery, orvacuum pump. You may need follow-up visits to make sure that you are using your medicines or devices correctly. Get help right away if you are taking or injecting medicines and you have an erection that lasts longer than 4 hours. This information is not intended to replace advice given to you by your health care provider. Make sure you discuss any questions you have with your health care provider. Document Released: 10/14/2001 Document Revised: 09/29/2018 Document Reviewed: 11/02/2017 U-NOTE Patient Education 2020 [employer] Follow Up Care 03/11/2022 09:36:22 With:Brian Collado MD, Don Madison, URO Address: [facility] [address], [place] [address]- When:06/30/2022 Comments:w/psa and nickie [facility] 05-09-2022 Hospital Discharge instructions Patient Education 03/08/2022 07:39:30 Kidney Stones, Kjfk-jn-Uzby Kidney Stones Kidney stones are rock-like masses that form inside of the kidneys. Kidneys are organs that make pee (urine). A kidney stone may move into other parts of the urinary tract, including: The tubes that connect the kidneys to the bladder (ureters). The bladder. The tube that carries urine out of the body (urethra). Kidney stones can cause very bad pain and can block the flow of pee. The stone usually leaves your body (passes) through your pee. You may need to have a doctor take out the stone. What are the causes? Kidney stones may be caused by: A condition in which certain glands make too much parathyroid hormone (primary hyperparathyroidism). A buildup of a type of crystals in the bladder made of a chemical called uric acid. The body makes uric acid when you eat certain foods. Narrowing (stricture) of one or both of the ureters. A kidney blockage that you were born with. Past surgery on the kidney or the ureters, such as gastric bypass surgery. What increases the risk? You are more likely to develop this condition if: You have had a kidney stone in the past. You have a family history of kidney stones. You do not drink enough water. You eat a diet that is high in protein, salt (sodium), or sugar. You are overweight or very overweight (obese). What are the signs or symptoms? Symptoms of a kidney stone may include: Pain in the side of the belly, right below the ribs (flank pain). Pain usually spreads (radiates) to the groin. Needing to pee often or right away (urgently). Pain when going pee (urinating). Blood in your pee (hematuria). Feeling like you may vomit (nauseous). Vomiting. Fever and chills. How is this treated? Treatment depends on the size, location, and makeup of the kidney stones. The stones will often pass out of the body through peeing. You may need to: Drink more fluid to help pass the stone. In some cases, you may be given fluids through an IV tube put into one of your veins at the hospital. Take medicine for pain. Make changes in your diet to help keep kidney stones from coming back. Sometimes, medical procedures are needed to remove a kidney stone. This may involve: A procedure to break up kidney stones using a beam of light (laser) or shock waves. Surgery to remove the kidney stones. Follow these instructions at home: Medicines Take rtqj-vqp-okypyte and prescription medicines only as told by your doctor. Ask your doctor if the medicine prescribed to you requires you to avoid driving or using heavy machinery. Eating and drinking Drink enough fluid to keep your pee pale yellow. You may be told to drink at least 8 10 glasses of water each day. This will help you pass the stone. If told by your doctor, change your diet. This may include: ?Limiting how much salt you eat. ?Eating more fruits and vegetables. ?Limiting how much meat, poultry, fish, and eggs you eat. Follow instructions from your doctor about eating or drinking restrictions. General instructions Collect pee samples as told by your doctor. You may need to collect a pee sample: ?24 hours after a stone comes out. ?8 12 weeks after a stone comes out, and every 6 12 months after that. Strain your pee every time you pee (urinate), for as long as told. Use the strainer that your doctor recommends. Do not throw out the stone. Keep it so that it can be tested by your doctor. Keep all follow-up visits as told by your doctor. This is important. You may need follow-up tests. How is this prevented? To prevent another kidney stone: Drink enough fluid to keep your pee pale yellow. This is the best way to prevent kidney stones. Eat healthy foods. Avoid certain foods as told by your doctor. You may be told to eat less protein. Stay at a healthy weight. Where to find more information National Kidney Foundation (NKF): www.kidney.org [facility] (UCF): www.urologyhealth.org Contact a doctor if: You have pain that gets worse or does not get better with medicine. Get help right away if: You have a fever or chills. You get very bad pain. You get new pain in your belly (abdomen). You pass out (faint). You cannot pee. Summary Kidney stones are rock-like masses that form inside of the kidneys. Kidney stones can cause very bad pain and can block the flow of pee. The stones will often pass out of the body through peeing. Drink enough fluid to keep your pee pale yellow. This information is not intended to replace advice given to you by your health care provider. Make sure you discuss any questions you have with your health care provider. Document Released: 04/04/2009 Document Revised: 03/04/2020 Document Reviewed: 03/04/2020 U-NOTE Patient Education 2020 [employer]. Follow Up Care 03/04/2022 12:54:11 With:Brian Collado MD, Don Madison, URO Address: [facility] [address], [place] [address]- When: Unknown Comments:follow up after ESWL [facility] Evaluation + Plan note No data available for this section [facility] Evaluation + Plan note Future Appointments Appointment Date:07/06/2022 08:30:00 AM Scheduled Provider:Don Torres Jr., MD Location:[facility] Appointment Type:URO Office Visit Diagnostic Tests Pending * PSA Total 03/30/22 [facility] evaluation + Plan note Future Appointments Appointment Date:07/26/2023 08:30:00 AM Scheduled Provider:FLY MCGUIRE PA-C Location:[facility] Appointment Type:URO Office Visit Diagnostic Tests Pending * PSA Total 07/22/22 [facility] Evaluation + Plan note Future Appointments Appointment Date:07/31/2024 09:00:00 AM Scheduled Provider:FLY MCGUIRE PA-C Location:[facility] Appointment Type:URO Office Visit Diagnostic Tests Pending * PSA Total 08/02/23 [facility] evaluation + Plan note Future Scheduled Tests Laboratory* PSA Screen, Total 07/31/25 Radiology* XR Abdomen 1 View 07/31/25 [facility] evaluation note* Diagnosis Essential hypertension (CMS/HCC)- Primary Unspecified essential hypertension Diabetic peripheral neuropathy associated with type 2 diabetes mellitus (CMS/HCC) Diabetic cataract, associated with type 2 diabetes mellitus (CMS/HCC) Type 2 diabetes mellitus with other diabetic kidney complication (CMS/HCC) Mixed hyperlipidemia (CMS/HCC) Mixed hyperlipidemia Adverse reaction to statin medication Simple chronic bronchitis (CMS/HCC) Simple chronic bronchitis At high risk for cardiovascular disease Cigarette smoker Tobacco use disorder Polypharmacy Issue of repeat prescriptions Non morbid obesity due to excess calories [facility] Diagnosis Essential hypertension (CMS/HCC) Unspecified essential hypertension [facility] Diagnosis Essential hypertension (CMS/HCC) Unspecified essential hypertension [facility]* Diagnosis Essential hypertension (CMS/HCC)- Primary Unspecified essential hypertension Hypertensive nephropathy (CMS/HCC) Unspecified hypertensive kidney disease with chronic kidney disease stage I through stage IV, or unspecified Microalbuminuria Proteinuria 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, associated with type 2 diabetes mellitus (CMS/HCC) Diabetic peripheral neuropathy associated with type 2 diabetes mellitus (CMS/HCC) Mixed hyperlipidemia (CMS/HCC) Mixed hyperlipidemia Polypharmacy Issue of repeat prescriptions Cigarette smoker Tobacco use disorder Adverse reaction to statin medication [facility] Diagnosis Essential hypertension Unspecified essential hypertension Type 2 diabetes mellitus with other diabetic kidney complication (HCC) Mixed hyperlipidemia Mixed hyperlipidemia [facility] Diagnosis Essential hypertension- Primary Unspecified essential hypertension Mixed hyperlipidemia Mixed hyperlipidemia Myalgia due to statin Type 2 diabetes mellitus with hyperglycemia, without long-term current use of insulin (HCC) Type 2 diabetes mellitus with other diabetic kidney complication (HCC) Microalbuminuria Proteinuria Diabetic cataract, associated with type 2 diabetes mellitus (HCC) Non morbid obesity due to excess calories Chronic pain syndrome Arthralgia, unspecified joint [facility]* Diagnosis Generalized arthritis- Primary [facility]* Diagnosis Inflammatory polyarthritis ([facility])- Primary Unspecified inflammatory polyarthropathy [facility] No data available for this section [facility] Summary Purpose Family History No Family History Records FoundNo Family History Records Found No data available for this section No data available for this section No Family History Records FoundNo Family History Records FoundNo Family History Records Found Advance Directives No Advanced Directives Records FoundNo Advanced Directives Records FoundNo Advanced Directives Records FoundNo Advanced Directives Records FoundNo Advanced Directives Records Found Additional Source Comments (unrecognized sect ion and content) No Status Records FoundNo Status Records FoundNo Status Records FoundNo Status Records FoundNo Status Records Found INFORMATION SOURCE (unrecogn ized section and content) DATE CREATED AUTHOR 01/08/2022 [facility] 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 Engineer DATE CREATED AUTHOR AUTHOR'S ORGANIZ ATION 06/30/2022 [facility] DATE CREATED AUTHOR AUTHOR'S ORGANIZ ATION 08/12/2025 [facility] EPIC DATE CREATED AUTHOR AUTHOR'S ORGANIZ ATION 08/17/2025 [facility] DATE CREATED AUTHOR AUTHOR'S ORGANIZ ATION 08/19/2025 [facility] Care Team (unrecognized sect ion and content) Team MemberRelationshipSpecialtyStart DateEnd Date Alex Jeffrey MD [address] [place] [address] PCP - GeneralFamily Medicine03/08/23Team MemberRelationshipSpecialtyStart DateEnd Date Alex Jeffrey MD [address] [place] [address] (Fax) PCP - GeneralFamily Medicine03/08/23Team MemberRelationshipSpecialtyStart DateEnd Date Alex Jeffrey MD [address] [facility] [place] [address] (Fax) PCP - GeneralFamily Medicine03/08/23Team MemberRelationshipSpecialtyStart DateEnd Date Alex Jeffrey MD [address] [place] [address] (Fax) PCP - GeneralFamily Medicine03/08/23 Alex Jeffrey MD [address] [place] [address] (Fax) PCP - [facility] [place]07/31/24Team MemberRelationshipSpecialtyStart DateEnd Date Alex Jeffrey MD [address] [place] [address] (Fax) PCP - GeneralFamily Medicine03/08/23 Alex Jeffrey MD [address] [place] [address] (Fax) PCP - [facility]07/31/24Team MemberRelationshipSpecialtyStart DateEnd Date Alex Jeffrey MD [address] [place] [address] (Fax) PCP - GeneralFamily Medicine03/08/23 Alex Jeffrey MD [address] [place] [address] (Fax) PCP - [facility]12/14/24Team MemberRelationshipSpecialtyStart DateEnd Date Alex Jeffrey MD [address] [place] [address] (Fax) PCP - GeneralFamily Medicine03/08/23 Alex Jeffrey MD [address] [place] [address] (Fax) PCP - [facility]12/14/24Team MemberRelationshipSpecialtyStart DateEnd Date Alex Jeffrey MD [address] [place] [address] (Fax) PCP - GeneralFamily Medicine03/08/23 Alex Jeffrey MD [address] [place] [address] (Fax) PCP - [place]10/31/24 Jamel Nagy MD [address] [place] [address] Referring PhysicianUrology01/21/25Team MemberRelationshipSpecialtyStart DateEnd Date Alex Jeffrey MD [address] [place] [address] (Fax) PCP - GeneralFamily Medicine03/08/23 Alex Jeffrey MD [address] [place] [address] (Fax) PCP - [place] MA10/31/24 Jamel Nagy MD [address] [place] [address] Referring PhysicianUrology01/21/25Team MemberRelationshipSpecialtyStart DateEnd Date Alex Jeffrey MD [address] [address] (Fax) PCP - Generalmi Medicine03/08/23 Alex Jeffrey MD [address] [address] (Fax) PCP - Jaclyn PASCAL10/31/24 Jamel Nagy MD [address] [place] [address] Referring PhysicianUrology01/21/25Team MemberRelationshipSpecialtyStart DateEnd Date Alex Jeffrey MD [address] [address] PCP - [facility]03/08/23 Alex Jeffrey MD [address] [address] PCP - Jaclyn PASCAL10/31/24 Jamel Nagy MD [address] [place] [address] Referring PhysicianUrology01/21/25 Reason for Visit (unrecogniz ed section and content) ReasonCommentsHypertensionHyperlipidemiaDiabetesReasonCommentsMed RefillReason Onset JyewWlanllrjDfwmzao47/13/2025 FOR RECORDS PERTAINING TO PATIENTS WHO ARE OR HAVE BEEN ENROLLED IN A CHEMICAL DEPENDENCY/SUBSTANCEABUSE PROGRAM, SOME INFORMATION MAY BE OMITTED. This clinical summary was aggregated from multiple sources. Caution should be exercised in using it in the provision of clinical care. This summary normalizes information from multiple sources, and as a consequence, information in this document may materially change the coding, format and clinical context of patient data. In addition, data may be omitted in some cases. CLINICAL DECISIONS SHOULD BE BASED ON THE PRIMARY CLINICAL RECORDS. [facility]. provides no warranty or guarantee of the accuracy or completeness of information in this document.
--- NOTE | 2025-08-22 15:09 | XR_ITS ---
[place] [id number] Patient Name: PAMELA JIN MRN: [id number] date: 1960 Sex: M Assigned Patient Location: LAB Current Patient Location: LAB Accession/Order Number: [id number] Exam Date: 08/22/2025 15:19 Report Date: 08/22/2025 18:46 At the request of: BLA[employer] PIRES Procedure: XR abdomen 1V Single x-ray view of the abdomen INDICATION: Calculus COMPARISON: Ultrasound 07/24/2024 FINDINGS: Left lower pole renal calculi suspected. No definite right-sided calculi. No calcifications overlying the psoas muscles. Degenerative changes of the lumbar spine with mild levocurvature. There are degenerative changes both hips. XR/XR abdomen 1V IMPRESSION: Left lower pole calculi Impression dictated by: Jomar Alicea M.D. 08/22/2025 6:46 PM Dictation Location: [place] [address] Electronically authenticated by: [id number] Y Date: 08/22/2025 18:46
[2025-08-22 16:33] LABS: Prostate Specific Antigen Dx 0.61 ng/mL (<=4.00)
== END 2025-08-22 14:49 | disposition home or self-care (01) ==
LOC: LAB 14:55
PROVIDERS: PCP Family Medicine; Visit Provider Student in an Organized Health Care Education/Training Program
DX: N20.0 Calculus of kidney (principal); Z12.5 Encounter for screening for malignant neoplasm of prostate
CPT/HCPCS: 36415; 74018; 84153